=== PATIENT | male | born 1955 | race Caucasian/White ===

== ENCOUNTER → 2019-11-18 13:06 | Outpatient (BNVA) | payer MEDICARE, MEDICAID, SELFPAY | PROVIDERS: Family Provider Nurse Practitioner Family; PCP Nurse Practitioner Family; Visit Provider Internal Medicine Cardiovascular Disease | DX: R06.02 Shortness of breath (principal); R00.1 Bradycardia, unspecified | CPT/HCPCS: 80048; 83880 ==

== ENCOUNTER 2020-04-11 08:41 | Outpatient (CLI) | payer MEDICARE, MEDICAID, SELFPAY ==
--- NOTE | 2020-04-11 09:05 | NMCV_ITS ---
NM chelly perf SPECT r/s* [id number] Bryan Moncada Age: 64 Gender: M : 1955 Exam Date: 04/11/2020 09:05 Ordering Phys: Nadya Velarde MD ([email or web address]) Technologist: CLINTON Huang Exam Location: [facility] Indications: SOB STRESS TEST Please [facility] for [facility] IMAGE PROTOCOL Rest/Stress 1 Lexiscan Day Radiopharmaceutical Dose (mCi) Administration Site Administered by Rest: Tc-99m 10.8 IV CLINTON Cummings Sestamibi Stress:Tc-99m 32.6 IV CLINTON Huang Sestamipradeep Rest: 11-Apr-2020 60 Discovery 630 Stress: 11-Apr-2020 30 Discovery 630 0.4mg Lexiscan. Supine position only as patient was unable to lay prone. SPECT RESULTS Technical Quality: Good Raw Data Analysis: Normal Image Corrections: No attenuation or motion correction applied Summed Stress Score: 20 Summed Rest Score: 9 Summed Difference Score: 11 PERFUSION FINDINGS Moderate to large area of severely decreases uptake in the basal, mid and apical inferior, basal and mid inferolateral, basal and mid anterolateral, mid anteroseptal and mid inferoseptal regions. Significant reversibility was noted in the inferior, inferolateral, anterolateral and inferoseptal regions. FUNCTIONAL RESULTS (calculated via Gated SPECT) Stress Image LV EF (%): 37 Stress EDV (mL):130 TID: 0.87 Stress ESV (mL):82 FUNCTIONAL FINDINGS: Segmental wall motion analysis revealed almost akinetic septum with mild diffuse hypokinesia of the apex. IMPRESSIONS 1. Myocardial perfusion may revealing moderate to large areas of severely decreased uptake in the inferior, inferolateral and anterolateral regions with significant reversibility, suggestive of myocardial scarring with ischemia in the distribution of the right coronary artery and circumflex artery. 2. Diminished LV ejection fraction 37%. 3. The wall motion normalities as mentioned above. 4. Dilated LV cavity with an end-systolic volume of 82 mL. Compared to the study from 07/02/2018, there is significant increase in the ischemic burden Dr Nadya Velarde MD [facility] (Electronically Signed) Final Date: 11 April 2020 17:39 S
--- NOTE | 2020-04-11 09:05 | ECG_ITS ---
NAME OF STUDY: LEXISCAN SESTAMIBI STRESS TEST INDICATION: Chest Pain PROCEDURE: At the baseline, the EKG revealed atrial fibrillation with a controlled ventricular response rate of 82 bpm. Left axis deviation. Poor R wave progression. Diffuse nonspecific T wave changes. The baseline blood pressure was 180/83 mm Hg with a heart rate of 82 beats/min. Lexiscan was infused over a period of 20 seconds. A total of 0.4 milligrams of Lexiscan was infused. The stress phase was continued for a total of 5 minutes. Heart rate at the end of the stress phase was 97 with a blood pressure 137/92. The EKG at the peak infusion revealed no significant changes. Sestamibi was injected 20 seconds after the Lexiscan infusion. Blood pressure at the end of the recovery phase was 134/98 with a heart rate of 94 per minute. CONCLUSION: 1. Normal EKG response to] LexiScan infusion 2. No LexiScan induced chest pain or cardiac arrhythmia 3. Normal blood pressure and heart rate response 4. Sestamibi/sestamibi perfusion scan pending; see separate report. Electronically Signed On 04-14-2020 19:41:17 CDT by Nadya Velarde M.D. [email or web address]
[2020-04-11 09:06] VITALS: BMI 32.8
[2020-04-11] MEDS: regadenoson 0.4 Mg/5 ml Syringe IVP (11:13)
[2020-04-11 11:18] VITALS: BP 146/90; PULSE 99
== END 2020-04-11 08:42 | disposition home or self-care (01) ==
LOC: CDL 08:48
PROVIDERS: PCP Nurse Practitioner Family; Visit Provider Internal Medicine Cardiovascular Disease
DX: R06.02 Shortness of breath (principal)
CPT/HCPCS: 78452; 93017; A9500; J2785

== ENCOUNTER 2020-04-28 09:32 | Outpatient (CLI) | payer MEDICARE, MEDICAID, SELFPAY ==
[2020-04-28 10:01] LABS: Basophils % 0.4 %; Eosinophils # 0.1 10^3/uL (0.0-0.8); Eosinophils % 1.1 %; Hematocrit 49.9 % (42.0-52.0); Hemoglobin 16.9 g/dL (11.7-16.6); Lymphocytes # 1.4 10^3/uL (0.8-4.8); Lymphocytes % 26.8 %; Mean Corpuscular HGB Conc 33.9 g/dL (30.0-36.0); Mean Corpuscular Hemoglobin 31.4 pg (28.0-34.0); Mean Corpuscular Volume 92.8 fL (80-94); Mean Platelet Volume 10.9 fL (7.4-10.4); Monocytes # 0.6 10^3/uL (0.2-0.9); Monocytes % 11.9 %; Neutrophils # 3.2 10^3/uL (1.8-7.7); Neutrophils % 59.6 %; Nucleated Red Blood Cells % 0 %; Platelet Count 147 10^3/cmm (130-400); Red Blood Count 5.38 10^6/uL (4.1-5.3); Red Cell Distribution Width 12.3 % (12.1-15.1); White Blood Count 5.4 10^3/uL (4.0-10.0)
[2020-04-28 10:05] LABS: INR 0.97 (0.8-1.2)
[2020-04-28 10:10] LABS: Anion Gap 20.3 (5-19); Blood Urea Nitrogen 10 mg/dL (8-23); Calcium 9.7 mg/dL (8.5-10.5); Carbon Dioxide 22 mmol/L (22-29); Chloride 93 mmol/L (98-107); Glomerular Filtration Rate 135.6 mL/min (90-130); Glucose 491 mg/dL (65-115); Osmolality Calculated 290 mOsm/kg (285-295); Potassium 4.3 mmol/L (3.5-5.1); Sodium 131 mmol/L (136-145)
== END 2020-04-28 09:33 | disposition home or self-care (01) ==
LOC: LAB 09:38
PROVIDERS: PCP Nurse Practitioner Family; Visit Provider Internal Medicine Cardiovascular Disease
DX: I48.91 Unspecified atrial fibrillation (principal)
CPT/HCPCS: 36415; 80048; 85025; 85610

== ENCOUNTER 2020-05-01 10:04 | Observation (INO) | payer MEDICARE, MEDICAID, SELFPAY ==
[2020-04-28 09:58] VITALS: BMI 31.9
--- NOTE | 2020-04-28 10:17 | SUR.PREOP ---
Dr. Velarde was called about the patient's iodine allergy. Orders were received via telephone for pre treatment for the patient to start Wednesday April 29, 2020. 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 Pre Treatment for Iodine allergy prior to angiogram Friday May 01, 2020 Check in at 7:30 A.M. at the ED entrance Nothing to eat or drink after Midnight Thursday April 30, 2020. Except water with your pills. Hold all diabetic meds Friday, May 01, 2020. 1: Pepcid 20mg by mouth two times daily, starting Friday. April 29, 2020. 2: Benadryl 25mg by mouth two times daily, starting Friday. April 30, 2020. 3: Prednisone 40mg by mouth three times daily, starting Friday. 2019.
[2020-05-01] VITALS (29 sets, daily range): BP systolic 108–158; BP diastolic 66–101; PULSE 80–99; RESP 6–23; TEMP 36.6–36.7; O2SAT 93–100
--- NOTE | 2020-05-01 07:30 | XACV_ITS ---
Ht: 165 cm Wt: 87 kg BSA: 2.03 m2 Gender: Male : 1955 Any Known Allergies: Other Exam Priority: Routine Procedure(s): Procedure Description: Diagnostic procedure Procedure Description: Left Heart Catheterization Procedure Description: Left ventriculography Procedure Description: Venous Graft Catheterization Procedure Description: Coronary Angiography Diagnostic Cath Status: Elective Diagnostic Findings SVG to 1st OM: 100% stenosis, ADENIKE: 0 flow. Coronary angiography shows right dominance. The left main is a medium caliber vessel which was found to have mild diffuse disease. The left anterior descending artery is a medium caliber vessel which appears to taper off towards the LV apex. The proximal and the mid segment of the artery was found to be extensively stented. There is mild to moderate diffuse in-stent narrowing. The 2 diagonal branches coming out of the stented segment was found to have ostial narrowing of 60 to 70%, possibly jailed lesions . The circumflex artery is a medium caliber vessel which appears to have a tapering subtotal occlusion proximally. Right after giving off a small atrial branch, the artery appears to be totally occluded. A relatively small caliber high obtuse marginal branch was found to have around 70 to 80% ostial stenosis. There is a small caliber intermedius artery which also was found to have moderate diffuse disease proximally. The right coronary artery is a medium caliber dominant vessel which was found to be extensively stented. There was mild to moderate diffuse in-stent narrowing in the proximal segment of the right coronary artery and also the PDA and PLV branches of the artery. Right to left, grade 2 collaterals were noted filling of the obtuse marginal branches. The venous graft to the obtuse marginal artery was found to be totally occluded at the ostium. The proximal segment of the graft was found to be stented. This appears to be a chronic occlusion. PCI Status: Elective Interventional Findings SVG to 1st OM: 100% stenosis treated with Drug Eluting Stent. 0% residual stenosis, ADENIKE: 3 flow. Conclusions This is a 64-year-old white male with history of coronary disease, status post single-vessel coronary bypass surgery 1992, status post multiple PCI's in the past, presenting with a increasing episodes of chest tightness/heaviness and shortness of breath. He had a myocardial perfusion imaging which was found to be abnormal mostly showing areas of ischemia in the distribution of the right coronary artery/circumflex artery. Patient is known to have type 2 diabetes, high blood pressure, dyslipidemia and LV dysfunction. In order to further evaluate his coronary status as well as the graft status, a cardiac catheterization was recommended. He underwent left heart catheterization with a left and right coronary angiogram, graft angiogram and LV angiogram today. The findings are as follows. The left anterior descending artery was found to be extensively stented in the proximal mid segment. The stented segments were found to be patent with mild to moderate in-stent stenosis. Jailed ostial narrowing in the diagonal branches coming out of the stented areas. 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 Extensive stenting of the right coronary artery including the PDA and PLV branches with some areas of mild to moderate in-stent narrowing. LV gram showing diffuse hypokinesia of the left ventricle with ejection fraction of around 40%. LVEDP of 13mmHg. 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 Based on the above angiogram findings, it was opted to treat him medically. We will try to optimize medical treatment. Patient was transferred to the medical floor in stable condition. Recommendations Continue current medical management and risk factor modification. Diagnostic RX Recommendation: medical therapy and/or counseling LV EDP: 13 mmHg Ejection Fraction: 40.0 % Left Ventriculography Findings: The LV gram was performed in the SALEH position. The LV cavity appears to be of normal size. There is mild diffuse hypokinesia of the left ventricle. Overall ejection fraction was around 40%. No filling defects are noted. No significant mitral valve prolapse or any mitral regurgitation. Pressures Phase:Rest AO : 95 mmHg / 90 mmHg ( 91 mmHg ) @ 4:33:00 AM 97 mmHg / 85 mmHg ( 92 mmHg ) @ 4:33:00 AM 121 mmHg / 72 mmHg ( 92 mmHg ) @ 4:51:00 AM 119 mmHg / 71 mmHg ( 90 mmHg ) @ 4:51:00 AM LV : 123 mmHg / 7 mmHg / @ 4:50:00 AM 149 mmHg / 12 mmHg / @ 4:51:00 AM 133 mmHg / 11 mmHg / @ 4:51:00 AM Valves Phase:DefaultPhase AV : 11.0 mmHg @ 10:04:39 AM AV Mean Gradient: 9.0 mmHg @ 10:04:39 AM Clinical Evaluation EBL: 5mL-10mL Procedural Details Procedure Consent Obtained. Pre-Procedure Time Out. Identified patient by full name and date of as verbalized by the patient/guarantor. Does the consent match the physician's order: Yes. Accurate & Complete Informed Consent: Yes. Inpatient/Outpatient History & Physical on Chart: Yes. If H&P is completed, is and addenduem needed: Yes; If yes, is the addendum complete: N/A. Visualize and Verify Site with Patient/Guarantor: N/A. Relevant Radiology Images available: Yes. Pre-op teaching completed and patient verbalized understanding. The risks, benefits, and alternatives of sedation and/or procedure were discussed by physician. The patient agrees to continue. Procedure started. [facility] Clinical Fraility Score: 5: Mildly Frail. Shellacker Indications: Valvular Disease. Chest Pain Symptom Assessment: Non-anginal Chest Pain. Correct patient, site and procedure confirmed by cath team. Current diagnosis: Chest Pain. PERRLA. Strong, equal hand fibre optics jointer bilaterally. Lungs clear x 5 lobes. IV Site on Arrival: 18 gauge in the right anticubital. IV Fluids: 0.9% NaCl at KVO. 0 mL infused prior to laborer bituminous paving. Oxygen started at 2liters/min via nasal canula. Pre Procedural Pulses: bilateral dorsalis pedis was 3+. Pre Procedural Pulses: bilateral posterior tibial was 3+. Pre Procedural Pulses: bilateral radial was 3+. right groin was prepped with chloroprep then draped in the usual sterile fashion. right radial was prepped with chloroprep then draped in the usual sterile fashion. Physician notified. Baseline sample Acquired. HR: 88 BPM. Patient's family unavailable. Current Diagnosis : Chest Pain. Physician arrived. Physician scrubbed in. Immediate Pre-Procedure Time Out. Correct Patient: Yes; Correct Procedure: Yes; Correct Site: Yes; Correct Patient Position: Yes; Correct Supplies: Yes; Dried Flammable Prep: Yes; Blood Products Available: N/A;. Lidocaine 1% infiltrated to the right groin. Arterial access obtained with micropuncture set. A 5 [place] JL4 catheter in over wire. Multiple views taken of left coronary artery. Catheter removed over the standard wire. A 5 [place] JL4.5 catheter in over wire. Multiple views taken of left coronary artery. Catheter removed over the standard wire. A 5 [place] JR4 catheter in over wire. Multiple views taken of right coronary artery. SVG to OM occluded. A 5 [place] Angled Pig catheter in over wire. EDP Sample taken: LV 123/7,9; HR: 91 BPM; SpO2: 97%. LV gram performed in SALEH @ 10 mL/second for a total of 30 mL. EDP Sample taken: LV 149/12,14; HR: 95 BPM; SpO2: 97%. Pullback taken: LV 133/11,13; AO 121/72(92); Mean: 9mmHg, Peak to Peak: 11mmHg, SEP: 14sec/min; HR: 98 BPM; SpO2: 97%. Catheter removed over the standard wire. Physician scrubbed out. Side port of sheath attached to Normal Saline flush at KVO to maintain patency. Sheath(s) sutured into position with 2-0 silk and sterile 4x4's and Op-site applied over the site. No oozing or signs and symptoms of hematoma noted. Arterial sheath flushed and connected to tranducer and pressure bag with heparinized saline. Post Procedure: Pulses reassessed and unchanged. PERRLA. Strong, equal hand fibre optics jointer bilaterally. No VTE prophylaxis required. Medication's Wasted: Lidocaine 1% = 6 mL. Medication's Wasted: Heparin = 2500 UNITS. Medication's Wasted: Other = VERSED 3mg FENTANYL 25 mcg. Total IV fluids: 290 mL. Contrast type used: Visipaque 320 mgI/mL, 500 mL bottle. Complications: None. Estimated blood loss: 5mL-10mL. Procedure completed. A Suture was successful obtaining hemostatsis at the Right Femoral artery insertion site. Patient transferred by bed to 1st floor. Vital chart was stopped. Site: Right Femoral artery Sheath Size: 6 Fr Hemostasis Method: Suture Hemostasis Success: Successful Procedure Medications Start: 9:05 AM Stop: 9:05 AM Medication: 0.9% Saline Amount: 250 ml Route: I.V. bolus Start: 9:20 AM Stop: 9:20 AM Medication: Fentanyl Amount: 50 mcg Start: 9:22 AM Stop: 9:22 AM Medication: Versed Amount: 1 mg Route: I.V. Start: 9:31 AM Stop: 9:31 AM Medication: Versed Amount: 1 mg Route: I.V. Start: 9:33 AM Stop: 9:33 AM Medication: Heparin Amount: 1500 units Route: I.V. Start: 9:43 AM Stop: 9:43 AM Medication: Versed Amount: 1 mg Route: I.V. Start: 9:44 AM Stop: 9:44 AM Medication: Fentanyl Amount: 25 mcg I, the attending physician, have reviewed and verified all procedure medications. Yes, all medications given per verbal order History/Risk Factors Hypertension: Yes Dyslipidemia: Yes Diabetic Therapy: Insulin Peripheral Arterial Disease (PAD): No Myocardial Infarction (SD): Yes Obesity: Yes Renal Disease: No Tobacco Use: Never Prior Interventions PCI: Yes CABG: Yes Valve Surgery: No Date of PCI: 07/03/2018 Report Signatures Finalized by:Dr Nadya Velarde MD [facility] on 05/01/2020 2:02:20 PM
--- NOTE | 2020-05-01 08:03 | W.PM.OPSUD ---
Surgery/Procedure H&P Update DATE OF PROCEDURE: May 01, 2020 DATE H&P PERFORMED: 04/19/20 H&P UPDATE INFORMATION: I have reviewed H&P completed within last 30 days, I have examined patient prior to procedure and No changes to prior documentation PREOP DIAGNOSIS: ASHD PLANNED PROCEDURE: Operation Date: 05/01/20 08:30 Proposed Procedures p Cardiac Catheterization(Left) - Nadya Velarde MD PATIENT REASSESSED PRIOR TO SEDATION, WITH NO CHANGE NOTED: Yes PHYSICAL EXAM: alert, oriented x 3, clear to auscultation bilaterally and regular rate & rhythm AIRWAY EVAL/ANESTHESIA PLAN: normal airway, see other exam findings, ASA III, Monitored Anesthesia, Local Anesthesia, Risks, benefits & alternatives of sedation and/or procedure discussed and Patient agrees to continue as planned
[2020-05-01] MEDS: diphenhydrAMINE 50 mg Capsule PO (08:25)
--- NOTE | 2020-05-01 08:43 | SUR.PREOP ---
Glucose check/ Iodine allergy prep Glucose checked this morning as ordered. 255 mg/dl. Patient asymptomatic. Called to Dr. Velarde. No new orders at this point. Patient was premidicated for contrast allergy as instructed pre procedure.
[2020-05-01 08:45] LABS: Glucose Point of Care 255 mg/dL (70-110)
[2020-05-01] MEDS: fentaNYL 50 mcg/mL INJ 2mL IVP (10:30)
--- NOTE | 2020-05-01 10:35 | PC.NURSE ---
Sheath pulled on right groin Instructed pt on sheath removal. Pre-medicated pt with Fentanyl as ordered. Femoral artery palpated. 6 Fr sheath removed. Manual pressure applied for 20 mins. Hemostasis acheived. No bleeding, hematoma or swelling noted. DP and PT doppled. Skin is warm. Pt denies any pain. Activity restrictions discuss to pt post sheath removal. Instructed pt not raise his leg. Bedrest 6 hrs and to notify nurse if he started to have wetness or unusual pain, swelling on his groin area. pt verbalizes understanding.
[2020-05-01 11:35] LABS: Glucose Point of Care 191 mg/dL (70-110)
--- NOTE | 2020-05-01 14:00 | PC.NURSE ---
oozing noted 3 cm x 2 cm of blood underneath his dressing. No gross or increase bleeding noted. Dr Velarde in room and is aware. He order to let pt walk around and monitor. No Hematoma, swelling noted. Change the dressing and see if there is any new oozing. will monitor.
[2020-05-01 16:20] LABS: Glucose Point of Care 212 mg/dL (70-110)
--- NOTE | 2020-05-01 17:56 | PC.NURSE ---
Pt states he will take his evening meds when he get to go home this evening. Pt agreed for me to give his novolog sliding scale 6 units.
--- NOTE | 2020-05-01 18:33 | PC.NURSE ---
Ambulation Dressing change on right groin. No new oozing noted on the new dressing. No hematoma, swelling noted. Per pt there is mild tenderness on upon palpation. Instructed pt on applying pressure for 20 mins to right groin if it started to ooze again. Instructed pt to keep dressing clean and dry. Activity restrictions discuss to pt post angiogram such as no heavy weight lifting of more >10 lbs, no heavy stair use. Per patient he has 3 steps going to his apartment and its the only way to get in his house. Educated of no squatting, bending for the next 3 days. Pt verbalizes understanding.
--- NOTE | 2020-05-01 18:43 | PC.NURSE ---
Discharge to home Instructed pt regarding his follow-up appointment at [facility] for groin check. Discuss to pt to hold his Metformin until May 03 as ordered by the doctor. Educated pt on post angiogram home care instructions on activity restrictions and wound care. Pt verbalizes understanding. Discharge packet provided to pt. Ushered pt to ER via pt's own wheelchair.
== END 2020-05-01 18:43 | disposition home or self-care (01) ==
LOC: CSU 10:05
PROVIDERS: Admitting Provider Internal Medicine Cardiovascular Disease; PCP Nurse Practitioner Family; Visit Provider Internal Medicine Cardiovascular Disease
DX: I25.10 Atherosclerotic heart disease of native coronary artery without angina pectoris (principal); Z79.82 Long term (current) use of aspirin; I10 Essential (primary) hypertension; E78.5 Hyperlipidemia, unspecified; G47.30 Sleep apnea, unspecified; R07.89 Other chest pain; I25.5 Ischemic cardiomyopathy; R94.39 Abnormal result of other cardiovascular function study; E11.9 Type 2 diabetes mellitus without complications; Z79.4 Long term (current) use of insulin; Z95.1 Presence of aortocoronary bypass graft; I25.2 Old myocardial infarction; E66.9 Obesity, unspecified; Z68.32 Body mass index [BMI] 32.0-32.9, adult
CPT/HCPCS: 12345; 36415; 36416; 82962; 93459; 96372; 96375; C1769; C1887; C1894; G0378; J1644; J1815; J2001; J2250; J3010; J7030; Q0163; Q9967

== ENCOUNTER → 2020-05-09 11:24 | Outpatient (BNVA) | payer MEDICARE, MEDICAID, SELFPAY | PROVIDERS: PCP Nurse Practitioner Family; Visit Provider Nurse Practitioner Family | DX: R06.02 Shortness of breath (principal); R00.1 Bradycardia, unspecified; R07.9 Chest pain, unspecified; I25.10 Atherosclerotic heart disease of native coronary artery without angina pectoris | CPT/HCPCS: 80048 ==

== ENCOUNTER → 2021-04-30 09:36 | Outpatient (BNVA) | payer MEDICARE, MEDICAID, SELFPAY | PROVIDERS: PCP Nurse Practitioner Family; Visit Provider Nurse Practitioner Family | DX: E78.5 Hyperlipidemia, unspecified (principal); I10 Essential (primary) hypertension; I25.10 Atherosclerotic heart disease of native coronary artery without angina pectoris; I25.5 Ischemic cardiomyopathy; E11.65 Type 2 diabetes mellitus with hyperglycemia; Z79.4 Long term (current) use of insulin; Z68.28 Body mass index [BMI] 28.0-28.9, adult | CPT/HCPCS: 80053; 80061; 83036; 84439; 84443; 85025 ==

== ENCOUNTER 2021-06-06 12:06 | Inpatient (IN) | payer MEDICARE, MEDICAID, SELFPAY ==
[2021-06-06] VITALS (9 sets, daily range): BP systolic 120–154; BP diastolic 69–88; PULSE 83–122; RESP 20–40; TEMP 38.1; O2SAT 91–99; BMI 29.1
--- NOTE | 2021-06-06 13:22 | XR_ITS ---
WS: [id number] Pelvis, AP view, 06/06/2021 Clinical Data: pain in the hip, fall Comparison: None. Findings: No fractures or dislocations are seen. The SI joints and pubic symphysis are intact. The soft tissues are not remarkable. There is minimal spurring of both acetabular lips. XR/XR pelvis 1-2V* [id number] Impression: Negative for fracture.
--- NOTE | 2021-06-06 13:24 | CT_ITS ---
WS: [id number] CT HEAD NONCONTRAST HISTORY: fall 2 weeks ago on plavix TECHNIQUE: Contiguous axial imaging performed through the brain in 2.5 mm imaging. Bone and soft tiss ue windows. Sagittal and coronal reformats reviewed. All CT scans at [facility] use at le ast one of these dose optimization techniques: automated exposure control; mA and/or kV adjustment pe r patient size (includes targeted exams where dose is matched to clinical indication); or iterative r econstruction. DLP: 1007.93 mGy.cm COMPARISON: 02/22/2015 Mild increased density along the interhemispheric falx is similar to prior study from 2014 and likely calcification. No sulcal effacement. No evidence for resolved intracranial hemorrhage. There is mild atrophy but severe small vessel ischemic changes. Multiple lacunar infarcts in the basa l ganglia and RIGHT caudate head. Additional lacunar infarct in the LEFT chua radiata. Ventricles: Ventricles are mildly dilated. The extent of the dilatation is slightly out of proportio n to the amount of atrophy suggesting possible normal pressure hydrocephalus. Paranasal sinuses: Mild mucoperiosteal thickening in the sinuses. No air-fluid levels. Mastoid air cells: Well pneumatized. Calvarium and scalp: Skull is intact with no soft tissue edema or swelling. CT/CT head wo con* [id number] IMPRESSION: 1. No acute intracranial hemorrhage identified. 2. Ventriculomegaly out of proportion to the amount of atrophy. Consider sumaya l pressure hydrocephalus. 3. Extensive scattered chronic small vessel ischemic changes in bilateral lacu kirby infarcts.
--- NOTE | 2021-06-06 13:24 | CT_ITS ---
WS: [id number] CT ABDOMEN AND PELVIS WITH CONTRAST HISTORY: Diffuse abdominal tenderness and fall. TECHNIQUE: Imaging performed of the abdomen and pelvis with IV contrast. Single phase imaging of the abdomen. Coronal and sagittal reformats are submitted. All CT scans at [facility] use at least one of these dose optimization techniques: automated exposure control; mA and/or kV adjustment per patient size (includes targeted exams where dose is matched to clinical indication); or iterativ e reconstruction. IV CONTRAST: Visipaque 320; 95 mL IV. Oral contrast: No DLP: 1879.84 mGy.cm COMPARISON: 09/27/2019 Lower thorax: Dense pulmonary opacifications in the lower lung rock. These opacifications are most significant in the RIGHT lower lobe but also at the lingula and LEFT lower lobe and RIGHT middle lobe . Heart is slightly enlarged. Small hiatal hernia. Liver/biliary system: Normal size with no intrahepatic dilatation. Gallbladder: Normal. No gallstones or wall thickening. No pericholecystic fluid. Pancreas: Normal size pancreas and pancreatic duct. No adjacent inflammation. Focal calcification at the pancreatic head may be from prior pancreatitis. No duct dilatation. Spleen: Normal size spleen. No mass or infarct. Adrenal glands: Normal. Right kidney: Normal. Left kidney: Normal. Aorta: Moderate atherosclerosis with no aneurysm. Lymphadenopathy: None. Free fluid: None. GI tract: Normal appendix. No GI tract obstruction. No significant diverticular disease. Abdominal wall: Unremarkable abdominal wall. No hernia. Pelvis: Markedly distended urinary bladder. Bladder extends over a length of 17 cm. No intraluminal f illing defect appreciated. Inguinal canals are patent bilaterally containing fat only. No pelvic hema opathy. Bones: Mild degenerative spondylitic changes in the lower thoracic and lumbar spines. Partially heale d fracture lateral RIGHT ninth rib. CT/CT abdomen pelvis w con* [id number] IMPRESSION: 1. Dense confluent multilobar opacifications seen at the lung bases. Consider pneumonitis/Covid 19, pulmonary hemorrhage and pneumonia. Cannot completely exc lude malignancy. Anticipate follow-up imaging after treatment. 2. No abdominal pelvic hemorrhage or visceral organ injury. 3. Markedly distended urinary bladder. May consider bladder outlet obstruction . 4. Age-indeterminate but not acute RIGHT ninth rib fracture.
[2021-06-06 13:57] LABS: ABG PCO2 33.1 mmHg (35-45); Base Excess ABG 2.9 mmol/L (-2.0-2.0); Blood Gas Allen Test Pos; Blood Gas Operator Identificat glc; Blood Gas Sample Site Radial, left; Blood Gas Sample Type Arterial; HCO3 ABG 25.6 mmol/L (22-26); Oxygen Device ROOM AIR; PO2 ABG 60.8 mmHg (80.0-100.0)
--- NOTE | 2021-06-06 14:01 | W.ED.GENADLT ---
HPI - General Adult General: Chief complaint: General Medical Stated complaint: FALL, PAIN Time Seen by Provider: 06/06/21 13:07 History of Present Illness: HPI narrative: Patient is a 65-year-old male with a history of CAD status post CABG, hypertension, hyperlipidemia presenting to the emergency room with complaints of generalized weakness and pain all over progressively getting worse over the last 2 weeks. He reports 2 weeks ago, when he was walking to the bathroom he felt lightheaded and passed out. Patient denies any chest pain shortness of breath, palpitation at that point time. Patient reports that hhe is having increasingly pain all over. Decided to come to the emergency room for evaluation today. Patient denies any weakness, neck pain. Patient reports cough, subjective fever and malaise at home. Denies any diarrhea, loss of taste. No sick contacts with covid symptoms at home. Onset: 2 weeks ago Duration: 2 weeks Intensity: moderate Location: home Review of Systems Narrative: HEENT: No vision changes, no sore throat. +diffuse pain and +fatigue CV: No chest pain, no palpitations. PULM: No cough, No dyspnea. GI: No abdominal pain, no N/V/D. : No dysuria, no frequency, no hematuria. MSKEL: No arthralgias, no edema. SKIN: No new rashes, no lesions. NEURO: No headache, no focal weakness PFSH ED PFSH: Medical History Abnormal cardiovascular stress test Atherosclerotic cardiovascular disease Atypical chest pain Benign essential HTN Bradycardia Dyslipidemia Ischemic cardiomyopathy Shortness of breath Sleep apnea Surgical History Hx of CABG Hx of heart artery stent Hx of tonsillectomy Hx of vasectomy Family History Mother Diabetes CAD (coronary artery disease) Hyperlipidemia Hypertension Father CAD (coronary artery disease) Dementia Hyperlipidemia Hypertension Sister CAD (coronary artery disease) Cancer Diabetes Hyperlipidemia Hypertension Stroke Brother CAD (coronary artery disease) Cancer Dementia Diabetes Hyperlipidemia Hypertension Family/Other Suicide Denies family history of Clotting disorder Psychiatric illness Chronic kidney disease (CKD) Anesthesia complication Bleeding disorder Lung disease Social History Smoking and tobacco status: never smoked Alcohol intake: never Lives independently: Yes Marital status: Physical Exam Narrative: EXAM NARRATIVE: Head: Atraumatic, normocephalic Eyes: PERRL, EOMI, conjunctiva Locatwithout injection ENT: Throat without erythema, lesions or exudate, MMM NECK: Supple, trachea midline, no JVD LUNGS: LCTA CV: RRR, S1,S2, no murmurs, rubs, gallops. 2+ peripheral pulses in UEs ABDOMEN: Soft, nontender, nondistended, BS x4, no rigidity, no guarding, no rebound EXTREMITY: Normal ROM, no pitting edema, no calf tenderness to palpation SKIN: No rash or erythema NEURO: Awake and alert. Occasionally answering questions. Rest of exam limited by baseline dementia PSYCH: Normal mood and affect. Course Vital Signs: Vital signs: Vital Signs Temperature 100.6 F H 06/06/21 12:43 Pulse Rate 89 06/06/21 20:34 Respiratory Rate 30 H 06/06/21 20:34 Blood Pressure 128/88 06/06/21 20:34 Pulse Oximetry 93 06/06/21 20:34 MDM - General Adult MDM Narrative: Medical decision making narrative: 65-year-old male with history of CAD status post CABG, hypertension hyperlipidemia who presents to the emergency room with complaints of generalized weakness. Initially on evaluation, patient was noted to be satting 93 to 94% with occasional dips to the upper 80s. Patient was also to be noted to be mildly tachycardic to low 100s as well as febrile to 100.6 Covid incision came back positive. Patient was given 2 L of fluid instead of 30 cc/kg of IVF Given concerns for generalized malaise, history of recurrent fall, patient will be admitted to hospital for further evaluation. Patient was admitted to medicine team however shortly around 6 PM, patient suddenly developed shortness of breath. Patient was noted to be hypoxic to the 70% with rhonchorous coarse breath sounds bilaterally. Patient was also noted to tachycardic to the 130s and hypertensive to 210/120. He was immediately placed on BiPAP, received 80 mg of Lasix, a Driscoll was inserted, patient was started on nitroglycerin 200 mcg/min. Blood pressure, heart rate, and O2 sat improved after intervention. Patient voided about 2.4 L of fluids in the urine bag. She was intermittently agitated, requiring 1 mg of Ativan. Given changes in course of care, decision was made to escalate care to ICU level. Chest x-ray showed diffuse pulmonary infiltrate consistent with acute CHF exacerbation in setting of Covid. Patient was admitted to the ICU pain evaluation at this time.. Lab Data: Labs: Lab Results 06/06/21 06/06/21 06/06/21 Range/Units 12:43 13:40 13:40 WBC 3.3 L (4.0-10.0) 10^3/ uL RBC 5.28 (4.1-5.3) 10^6/u L Hgb 16.4 (11.7-16.6) g/dL Hct 46.4 (42.0-52.0) % MCV 87.9 (80-94) fL MCH 31.1 (28.0-34.0) pg MCHC 35.3 (30.0-36.0) g/dL RDW 11.8 L (12.1-15.1) % Plt Count 98 L (130-400) 10^3/c mm MPV 11.8 H (7.4-10.4) fL Total Counted 100 (0-100) Atypical Lymphs % 1.0 (0-5) % Absolute Neutrophi ls 2.6 (1.4-6.5) 10^3/c mm Segmented Neutroph ils 78 % Abs Segm Neuts (Ma n) 2.6 (1.6-7.1) 10/cmm Band Neutrophils 0.0 % Abs Band Neuts (Ma n) 0.0 (0.0-1.2) 10^3/c mm Absolute Lymphocyt es 0.6 L (1.2-3.4) 10^3/c mm Lymphocytes (Manua l) 17 % Monocytes (Manual) 4.0 % Absolute Monocytes 0.1 (0.1-0.6) 10^3/c mm Eosinophils (Manua l) 0 % Absolute Eosinophi ls 0.0 (0.0-0.7) 10^3/c mm Basophils (Manual) 0.0 % Absolute Basophils 0.0 (0.0-0.2) 10^3/c mm Platelet Estimate Normal (Normal) PT 13.10 (12.1-14.9) SECO NDS INR 0.96 (0.8-1.2) APTT 33.8 (23.9-36.7) SECO NDS Specimen Type Sample Site ABG pH (7.35-7.45) ABG pCO2 (35-45) mmHg ABG pO2 (80.0-100.0) mmH g ABG HCO3 (22-26) mmol/L ABG Base Excess (-2.0-2.0) mmol/ L Jarek Test Hematocrit (42-52) % O2 Delivery Device FiO2 % [employer] Driver ID Sodium (136-145) mmol/L Potassium (3.5-5.1) mmol/L Chloride (98-107) mmol/L Carbon Dioxide (22-29) mmol/L Anion Gap (5-19) BUN (8-23) mg/dL Creatinine (0.7-1.2) mg/dL GFR Calculation (90-130) mL/min Glucose (65-115) mg/dL POC Glucose 198 H (70-110) mg/dL Calculated Osmolal ity (285-295) mOsm/k g Lactate (0.5-2.2) mmol/L Calcium (8.5-10.5) mg/dL Total Bilirubin (0.15-1.2) mg/dL AST (0-40) U/L ALT (0-41) U/L Alkaline Phosphata se (40-130) IU/L Total Protein (6.6-8.7) g/dL Albumin (3.5-5.2) g/dL Globulin (1.3-4.6) g/dL Lipase (13-60) U/L Urine Color (Yellow) Urine Appearance (CLEAR) Urine pH (5-7) Ur Specific Gravit y (1.005-1.030) Urine Protein (Negative) Urine Glucose (UA) (Normal) Urine Ketones (Negative) Urine Blood (Negative) Urine Nitrate (Negative) Urine Bilirubin (Negative) Urine Urobilinogen (Negative) mg/dL Ur Leukocyte Brittney ase (Negative) SARS-CoV-2 Ag (Rap id) (Negative) Blood Type Rho(D) Type Antibody Screen 06/06/21 06/06/21 06/06/21 Range/Units 13:40 13:40 13:40 WBC (4.0-10.0) 10^3/ uL RBC (4.1-5.3) 10^6/u L Hgb (11.7-16.6) g/dL Hct (42.0-52.0) % MCV (80-94) fL MCH (28.0-34.0) pg MCHC (30.0-36.0) g/dL RDW (12.1-15.1) % Plt Count (130-400) 10^3/c mm MPV (7.4-10.4) fL Total Counted (0-100) Atypical Lymphs % (0-5) % Absolute Neutrophi ls (1.4-6.5) 10^3/c mm Segmented Neutroph ils % Abs Segm Neuts (Ma n) (1.6-7.1) 10/cmm Band Neutrophils % Abs Band Neuts (Ma n) (0.0-1.2) 10^3/c mm Absolute Lymphocyt es (1.2-3.4) 10^3/c mm Lymphocytes (Manua l) % Monocytes (Manual) % Absolute Monocytes (0.1-0.6) 10^3/c mm Eosinophils (Manua l) % Absolute Eosinophi ls (0.0-0.7) 10^3/c mm Basophils (Manual) % Absolute Basophils (0.0-0.2) 10^3/c mm Platelet Estimate (Normal) PT (12.1-14.9) SECO NDS INR (0.8-1.2) APTT (23.9-36.7) SECO NDS Specimen Type Sample Site ABG pH (7.35-7.45) ABG pCO2 (35-45) mmHg ABG pO2 (80.0-100.0) mmH g ABG HCO3 (22-26) mmol/L ABG Base Excess (-2.0-2.0) mmol/ L Jarek Test Hematocrit (42-52) % O2 Delivery Device FiO2 % [employer] Driver ID Sodium 131 L (136-145) mmol/L Potassium 3.6 (3.5-5.1) mmol/L Chloride 94 L (98-107) mmol/L Carbon Dioxide 26 (22-29) mmol/L Anion Gap 14.6 (5-19) BUN 9 (8-23) mg/dL Creatinine 0.6 L (0.7-1.2) mg/dL GFR Calculation 135.2 H (90-130) mL/min Glucose 185 H (65-115) mg/dL POC Glucose (70-110) mg/dL Calculated Osmolal ity 275 L (285-295) mOsm/k g Lactate 1.7 (0.5-2.2) mmol/L Calcium 8.4 L (8.5-10.5) mg/dL Total Bilirubin 0.6 (0.15-1.2) mg/dL AST 33 (0-40) U/L ALT 21 (0-41) U/L Alkaline Phosphata se 105 (40-130) IU/L Total Protein 6.0 L (6.6-8.7) g/dL Albumin 4.0 (3.5-5.2) g/dL Globulin 2.0 (1.3-4.6) g/dL Lipase 424 H (13-60) U/L Urine Color (Yellow) Urine Appearance (CLEAR) Urine pH (5-7) Ur Specific Gravit y (1.005-1.030) Urine Protein (Negative) Urine Glucose (UA) (Normal) Urine Ketones (Negative) Urine Blood (Negative) Urine Nitrate (Negative) Urine Bilirubin (Negative) Urine Urobilinogen (Negative) mg/dL Ur Leukocyte Brittney ase (Negative) SARS-CoV-2 Ag (Rap id) (Negative) Blood Type A Positive Rho(D) Type Positive / 4+ Antibody Screen Negative 06/06/21 06/06/21 06/06/21 Range/Units 13:47 14:10 17:20 WBC (4.0-10.0) 10^3/ uL RBC (4.1-5.3) 10^6/u L Hgb (11.7-16.6) g/dL Hct (42.0-52.0) % MCV (80-94) fL MCH (28.0-34.0) pg MCHC (30.0-36.0) g/dL RDW (12.1-15.1) % Plt Count (130-400) 10^3/c mm MPV (7.4-10.4) fL Total Counted (0-100) Atypical Lymphs % (0-5) % Absolute Neutrophi ls (1.4-6.5) 10^3/c mm Segmented Neutroph ils % Abs Segm Neuts (Ma n) (1.6-7.1) 10/cmm Band Neutrophils % Abs Band Neuts (Ma n) (0.0-1.2) 10^3/c mm Absolute Lymphocyt es (1.2-3.4) 10^3/c mm Lymphocytes (Manua l) % Monocytes (Manual) % Absolute Monocytes (0.1-0.6) 10^3/c mm Eosinophils (Manua l) % Absolute Eosinophi ls (0.0-0.7) 10^3/c mm Basophils (Manual) % Absolute Basophils (0.0-0.2) 10^3/c mm Platelet Estimate (Normal) PT (12.1-14.9) SECO NDS INR (0.8-1.2) APTT (23.9-36.7) SECO NDS Specimen Type Arterial Sample Site Radial, left ABG pH 7.50 H (7.35-7.45) ABG pCO2 33.1 L (35-45) mmHg ABG pO2 60.8 L (80.0-100.0) mmH g ABG HCO3 25.6 (22-26) mmol/L ABG Base Excess 2.9 H (-2.0-2.0) mmol/ L Jarek Test Pos Hematocrit 48.0 (42-52) % O2 Delivery Device Room air FiO2 21.0 % [employer] Driver ID glc Sodium (136-145) mmol/L Potassium (3.5-5.1) mmol/L Chloride (98-107) mmol/L Carbon Dioxide (22-29) mmol/L Anion Gap (5-19) BUN (8-23) mg/dL Creatinine (0.7-1.2) mg/dL GFR Calculation (90-130) mL/min Glucose (65-115) mg/dL POC Glucose (70-110) mg/dL Calculated Osmolal ity (285-295) mOsm/k g Lactate (0.5-2.2) mmol/L Calcium (8.5-10.5) mg/dL Total Bilirubin (0.15-1.2) mg/dL AST (0-40) U/L ALT (0-41) U/L Alkaline Phosphata se (40-130) IU/L Total Protein (6.6-8.7) g/dL Albumin (3.5-5.2) g/dL Globulin (1.3-4.6) g/dL Lipase (13-60) U/L Urine Color Straw (Yellow) Urine Appearance Clear (CLEAR) Urine pH 5 (5-7) Ur Specific Gravit y 1.010 (1.005-1.030) Urine Protein 1+ H (Negative) Urine Glucose (UA) 4+ H (Normal) Urine Ketones 1+ H (Negative) Urine Blood Neg (Negative) Urine Nitrate Negative (Negative) Urine Bilirubin Neg (Negative) Urine Urobilinogen 4 H (Negative) mg/dL Ur Leukocyte Brittney ase Negative (Negative) SARS-CoV-2 Ag (Rap id) Positive H (Negative) Blood Type Rho(D) Type Antibody Screen 06/06/21 Range/Units 18:37 WBC (4.0-10.0) 10^3/ uL RBC (4.1-5.3) 10^6/u L Hgb (11.7-16.6) g/dL Hct (42.0-52.0) % MCV (80-94) fL MCH (28.0-34.0) pg MCHC (30.0-36.0) g/dL RDW (12.1-15.1) % Plt Count (130-400) 10^3/c mm MPV (7.4-10.4) fL Total Counted (0-100) Atypical Lymphs % (0-5) % Absolute Neutrophi ls (1.4-6.5) 10^3/c mm Segmented Neutroph ils % Abs Segm Neuts (Ma n) (1.6-7.1) 10/cmm Band Neutrophils % Abs Band Neuts (Ma n) (0.0-1.2) 10^3/c mm Absolute Lymphocyt es (1.2-3.4) 10^3/c mm Lymphocytes (Manua l) % Monocytes (Manual) % Absolute Monocytes (0.1-0.6) 10^3/c mm Eosinophils (Manua l) % Absolute Eosinophi ls (0.0-0.7) 10^3/c mm Basophils (Manual) % Absolute Basophils (0.0-0.2) 10^3/c mm Platelet Estimate (Normal) PT (12.1-14.9) SECO NDS INR (0.8-1.2) APTT (23.9-36.7) SECO NDS Specimen Type Arterial Sample Site Radial, left ABG pH 7.30 L (7.35-7.45) ABG pCO2 42.3 (35-45) mmHg ABG pO2 67.8 L (80.0-100.0) mmH g ABG HCO3 20.6 L (22-26) mmol/L ABG Base Excess -5.8 L (-2.0-2.0) mmol/ L Jarek Test Pos Hematocrit 54.7 H (42-52) % O2 Delivery Device Bipap FiO2 100.0 % [employer] Driver ID Amh Sodium (136-145) mmol/L Potassium (3.5-5.1) mmol/L Chloride (98-107) mmol/L Carbon Dioxide (22-29) mmol/L Anion Gap (5-19) BUN (8-23) mg/dL Creatinine (0.7-1.2) mg/dL GFR Calculation (90-130) mL/min Glucose (65-115) mg/dL POC Glucose (70-110) mg/dL Calculated Osmolal ity (285-295) mOsm/k g Lactate (0.5-2.2) mmol/L Calcium (8.5-10.5) mg/dL Total Bilirubin (0.15-1.2) mg/dL AST (0-40) U/L ALT (0-41) U/L Alkaline Phosphata se (40-130) IU/L Total Protein (6.6-8.7) g/dL Albumin (3.5-5.2) g/dL Globulin (1.3-4.6) g/dL Lipase (13-60) U/L Urine Color (Yellow) Urine Appearance (CLEAR) Urine pH (5-7) Ur Specific Gravit y (1.005-1.030) Urine Protein (Negative) Urine Glucose (UA) (Normal) Urine Ketones (Negative) Urine Blood (Negative) Urine Nitrate (Negative) Urine Bilirubin (Negative) Urine Urobilinogen (Negative) mg/dL Ur Leukocyte Brittney ase (Negative) SARS-CoV-2 Ag (Rap id) (Negative) Blood Type Rho(D) Type Antibody Screen Imaging Data^: Other Imaging: Radiologist's impression: [facility] [facility] [address].[place], [place] [address]PFix ReportSigned Patient: Bryan Moncada #: [id number]: 5Acct#:[id number]/Sex: 65 / MADM Date: 06/06/21Loc: ERRoom/Bed:Attending Dr: Ordering Provider/Ordering MD: Madelyn Wang MD Date of Service: 06/06/21 Procedure(s): XR chest 1V portable [id number] Accession Number(s): [id number] Report Number: [id number] WS: [id number] Portable AP upright chest, 06/06/2021 Clinical Data: fall Comparison: Portable chest, 09/27/2019. Findings: Bilateral patchy pulmonary opacities involving the entire right lung and the left lower lobe is noted. There is cardiomegaly. The aortic arch and descending aorta show tortuosity. Midline sternotomy sutures are present. Monitor leads on the chest wall. XR/XR chest 1V portable [id number] Impression: 1. Patchy bilateral pulmonary opacities most consistent with pneumonia. 2. Atherosclerosis and cardiomegaly. Dictated By:Brenda Perrin MDSigned By:Brenda Perrin MDSigned Date/Time:06/06/21 1502DD/ [id number], [place] [address]CJrk ReportSigned Patient: Bryan Moncada #: [id number]: 5Acct#:[id number]/Sex: 65 / MADM Date: 06/06/21Loc: ERRoom/Bed:Attending Dr: Ordering Provider/Ordering MD: Madelyn Wang MD Date of Service: 06/06/21 Procedure(s): XR hand LT min 3V* [id number] Accession Number(s): [id number] Report Number: [id number] WS: [id number] Left hand, 3 views, 06/06/2021 Clinical Data: rule out fx Comparison: None. Findings: No new fractures or dislocations are seen. The soft tissues are unremarkable. The joint spaces are normal There is a old healed fracture of the left fifth metacarpal. XR/XR hand LT min 3V* [id number] Impression: Negative left hand. Dictated By:Brenda Perrin MDSigned By:Brenda Perrin MDSigned Date/Time:06/06/21 1446DD/ [address] [facility].[place], [place] [address]IUsx ReportSigned Patient: Bryan Moncada #: [id number]: 5Acct#:[id number]/Sex: 65 MADM Date: 06/06/21Loc: ERRoom/Bed:Attending Dr: Ordering Provider/Ordering MD: Madelyn Wang MD Date of Service: 06/06/21 Procedure(s): XR wrist LT 2V [id number] Accession Number(s): [id number] Report Number: [id number] WS: [id number] Left wrist, AP and lateral views, 06/06/2021 Clinical Data: rule out fx Comparison: None. Findings: No fractures or dislocations are seen. The carpal bones are intact. There is no soft tissue swelling. The distal radius and ulna are not remarkable. XR/XR wrist LT 2V 38799 Impression: Negative left wrist. Dictated By:Brenda Perrin MDSigned By:Brenda Perrin MDSigned Date/Time:06/06/21 1445DD/ [address] [facility].[place], [place] [address]ZQji ReportSigned Patient: Bryan Moncada #: [id number]: 5Acct#:[id number]/Sex: 65 / MADM Date: 06/06/21Loc: ERRoom/Bed:Attending Dr: Ordering Provider/Ordering MD: Madelyn Wang MD Date of Service: 06/06/21 Procedure(s): XR forearm LT 2V 03251 Accession Number(s): [id number] Report Number: [id number] WS: [id number] Left forearm, AP and lateral views, 06/06/2021 Clinical Data: rule out fx Comparison: None. Findings: No fracture or dislocations are seen. The soft tissues are normal. The visualized left wrist and elbow show no obvious abnormalities. XR/XR forearm LT 2V 56913 Impression: Negative for fracture. Dictated By:Brenda Perrin MDSigned By:Brenda Perrin MDSigned Date/Time:06/06/21 1444DD/ 1444 146 Madelyn Wang MD Find Patient RAD - Bryan Moncada 65 M 1955 ACTIVITY DATE EXAM STATUS AUTHOR 06/06/21 14:39 Signed Brenda Perrin 06/06/21 14:02 Signed Brenda Perrin 06/06/21 14:02 Signed Brenda Perrin 06/06/21 14:02 Signed Brenda Perrin 06/06/21 13:24 Signed Jordyn Sanders 06/06/21 13:24 Signed Jordyn Sanders 06/06/21 13:22 Signed Brenda Perrin [address] [address]HV Scan ReportSigned Patient: Bryan Moncada #: [id number]: 5Acct#:[id number]/Sex: 65 / MADM Date: 06/06/21Loc: ERRoom/Bed:Attending Dr: Ordering Provider/Ordering MD: Madelyn Wang MD Date of Service: 06/06/21 Procedure(s): CT head wo con* [id number] Accession Number(s): [id number] Report Number: [id number] WS: [id number] CT HEAD NONCONTRAST HISTORY: fall 2 weeks ago on plavix TECHNIQUE: Contiguous axial imaging performed through the brain in 2.5 mm imaging. Bone and soft tissue windows. Sagittal and coronal reformats reviewed. All CT scans at [facility] use at least one of these dose optimization techniques: automated exposure control; mA and/or kV adjustment per patient size (includes targeted exams where dose is matched to clinical indication); or iterative reconstruction. DLP: 1007.93 mGy.cm COMPARISON: 02/22/2015 Mild increased density along the interhemispheric falx is similar to prior study from 2015 and likely calcification. No sulcal effacement. No evidence for resolved intracranial hemorrhage. There is mild atrophy but severe small vessel ischemic changes. Multiple lacunar infarcts in the basal ganglia and RIGHT caudate head. Additional lacunar infarct in the LEFT chua radiata. Ventricles: Ventricles are mildly dilated. The extent of the dilatation is slightly out of proportion to the amount of atrophy suggesting possible normal pressure hydrocephalus. Paranasal sinuses: Mild mucoperiosteal thickening in the sinuses. No air-fluid levels. Mastoid air cells: Well pneumatized. Calvarium and scalp: Skull is intact with no soft tissue edema or swelling. CT/CT head wo con* [id number] IMPRESSION: 1. No acute intracranial hemorrhage identified. 2. Ventriculomegaly out of proportion to the amount of atrophy. Consider normal pressure hydrocephalus. 3. Extensive scattered chronic small vessel ischemic changes in bilateral lacunar infarcts. Dictated By:Jordyn Sanders DOSigned By:Jordyn Sanders DOSigned Date/Time:06/06/21 1523 146 Madelyn Wang MD Find Patient RAD - Bryan Moncada 65 M 1955 ACTIVITY DATE EXAM STATUS AUTHOR 06/06/21 14:39 Signed Brenda Perrin 06/06/21 14:02 Signed Brenda Perrin 06/06/21 14:02 Signed Brenda Perrin 06/06/21 14:02 Signed Brenda Perrin 06/06/21 13:24 Signed Jordyn Sanders 06/06/21 13:24 Signed Jordyn Sanders 06/06/21 13:22 Signed Brenda Perrin [address] [address]UV Scan ReportSigned Patient: Bryan Moncada #: [id number]: 5Acct#:[id number]/Sex: 65 / MADM Date: 06/06/21Loc: ERRoom/Bed:Attending Dr: Ordering Provider/Ordering MD: Madelyn Wang MD Date of Service: 06/06/21 Procedure(s): CT abdomen pelvis w con* [id number] Accession Number(s): [id number] Report Number: [id number] WS: [id number] CT ABDOMEN AND PELVIS WITH CONTRAST HISTORY: Diffuse abdominal tenderness and fall. TECHNIQUE: Imaging performed of the abdomen and pelvis with IV contrast. Single phase imaging of the abdomen. Coronal and sagittal reformats are submitted. All CT scans at [facility] use at least one of these dose optimization techniques: automated exposure control; mA and/or kV adjustment per patient size (includes targeted exams where dose is matched to clinical indication); or iterative reconstruction. IV CONTRAST: Visipaque 320; 95 mL IV. Oral contrast: No DLP: 1879.84 mGy.cm COMPARISON: 09/27/2019 Lower thorax: Dense pulmonary opacifications in the lower lung rock. These opacifications are most significant in the RIGHT lower lobe but also at the lingula and LEFT lower lobe and RIGHT middle lobe. Heart is slightly enlarged. Small hiatal hernia. Liver/biliary system: Normal size with no intrahepatic dilatation. Gallbladder: Normal. No gallstones or wall thickening. No pericholecystic fluid. Pancreas: Normal size pancreas and pancreatic duct. No adjacent inflammation. Focal calcification at the pancreatic head may be from prior pancreatitis. No duct dilatation. Spleen: Normal size spleen. No mass or infarct. Adrenal glands: Normal. Right kidney: Normal. Left kidney: Normal. Aorta: Moderate atherosclerosis with no aneurysm. Lymphadenopathy: None. Free fluid: None. GI tract: Normal appendix. No GI tract obstruction. No significant diverticular disease. Abdominal wall: Unremarkable abdominal wall. No hernia. Pelvis: Markedly distended urinary bladder. Bladder extends over a length of 17 cm. No intraluminal filling defect appreciated. Inguinal canals are patent bilaterally containing fat only. No pelvic adenopathy. Bones: Mild degenerative spondylitic changes in the lower thoracic and lumbar spines. Partially healed fracture lateral RIGHT ninth rib. CT/CT abdomen pelvis w con* [id number] IMPRESSION: 1. Dense confluent multilobar opacifications seen at the lung bases. Consider pneumonitis/Covid 19, pulmonary hemorrhage and pneumonia. Cannot completely exclude malignancy. Anticipate follow-up imaging after treatment. 2. No abdominal pelvic hemorrhage or visceral organ injury. 3. Markedly distended urinary bladder. May consider bladder outlet obstruction. 4. Age-indeterminate but not acute RIGHT ninth rib fracture. Dictated By:Jordyn Sanders DOSigned By:Jordyn Sanders DOSigned Date/Time:06/06/21 1532DD/ [address] [address]QMas ReportSigned Patient: Bryan Moncada #: [id number]: 5Acct#:[id number]/Sex: 65 / MADM Date: 06/06/21Loc: ERRoom/Bed:Attending Dr: Ordering Provider/Ordering MD: Madelyn Wang MD Date of Service: 06/06/21 Procedure(s): XR pelvis 1-2V* [id number] Accession Number(s): [id number] Report Number: [id number] WS: [id number] Pelvis, AP view, 06/06/2021 Clinical Data: pain in the hip, fall Comparison: None. Findings: No fractures or dislocations are seen. The SI joints and pubic symphysis are intact. The soft tissues are not remarkable. There is minimal spurring of both acetabular lips. XR/XR pelvis 1-2V* [id number] Impression: Negative for fracture. Dictated By:Brenda Perrin MDSigned By:Brenda Perrin MDSigned Date/Time:06/06/21 1343DD/ 1342 Critical Care Time Critical Care Time: Total Critical Care Time: 43 Attestation: Given the high probability of imminent or life threatening deterioration of the patient?s condition without intervention, the patient was immediately assessed by myself and the nurse, and cardiac monitoring initiated. The patient was also placed on oxygen and continuous pulse oximetry initiated. During the course of the patient?s stay, I spent a considerable amount of time at the bedside performing serial re-evaluations of the patient?s hemodynamic and clinical status because of the recognized potential threat to life or limb in this condition. Clinical management of this patient involved high complexity decision making to assess, manipulate, and support vital organ system failure. I then had a chance to review all of the available laboratory and radiographic studies obtained today, and I also reviewed old records available to me at the time. Sequential vital signs were obtained. Critical care time noted below was time spent engaged in work directly related to the individual patient?s care, not including time performing procedures; however it does include time spent at the immediate bedside or elsewhere on the floor or unit. TOTAL CRITICAL CARE TIME ELAPSED: 43 minutes. BODY SYSTEM AT HIGHEST RISK: Cardiac. Discharge Plan Discharge Patient Disposition: Admitted As Inpatient Clinical Impression: Acute exacerbation of CHF (congestive heart failure), COVID-19 Condition: Stable Coding Level of Care Code ED Product Design Manager for Rebekah Tavares
--- NOTE | 2021-06-06 14:02 | XR_ITS ---
WS: [id number] Left forearm, AP and lateral views, 06/06/2021 Clinical Data: rule out fx Comparison: None. Findings: No fracture or dislocations are seen. The soft tissues are normal. The visualized left wrist and elbo w show no obvious abnormalities. XR/XR forearm LT 2V [id number] Impression: Negative for fracture.
--- NOTE | 2021-06-06 14:02 | XR_ITS ---
WS: [id number] Left hand, 3 views, 06/06/2021 Clinical Data: rule out fx Comparison: None. Findings: No new fractures or dislocations are seen. The soft tissues are unremarkable. The joint spaces are no rmal There is a old healed fracture of the left fifth metacarpal. XR/XR hand LT min 3V* [id number] Impression: Negative left hand.
--- NOTE | 2021-06-06 14:02 | XR_ITS ---
WS: [id number] Left wrist, AP and lateral views, 06/06/2021 Clinical Data: rule out fx Comparison: None. Findings: No fractures or dislocations are seen. The carpal bones are intact. There is no soft tissue swelling. The distal radius and ulna are not remarkable. XR/XR wrist LT 2V [id number] Impression: Negative left wrist.
[2021-06-06 14:04] LABS: Hematocrit 46.4 % (42.0-52.0); Hemoglobin 16.4 g/dL (11.7-16.6); Mean Corpuscular HGB Conc 35.3 g/dL (30.0-36.0); Mean Corpuscular Hemoglobin 31.1 pg (28.0-34.0); Mean Corpuscular Volume 87.9 fL (80-94); Mean Platelet Volume 11.8 fL (7.4-10.4); Platelet Count 98 10^3/cmm (130-400); Red Blood Count 5.28 10^6/uL (4.1-5.3); Red Cell Distribution Width 11.8 % (12.1-15.1); White Blood Count 3.3 10^3/uL (4.0-10.0)
[2021-06-06 14:17] LABS: INR 0.96 (0.8-1.2); Partial Thromboplastin Time 33.8 SECONDS (23.9-36.7)
[2021-06-06 14:20] LABS: Lactate (Lactic Acid level) 1.7 mmol/L (0.5-2.2)
[2021-06-06] MEDS: acetaminophen 500 mg Tablet 1000 MG PO (14:20)
[2021-06-06] MEDS: sodium chloride 0.9% 1,000 ML 999 ML IV ×2 (14:20→15:49)
[2021-06-06 14:22] LABS: Alanine Aminotransferase 21 U/L (0-41); Alkaline Phosphatase 105 IU/L (40-130); Anion Gap 14.6 (5-19); Aspartate Amino Transferase 33 U/L (0-40); Blood Urea Nitrogen 9 mg/dL (8-23); Calcium 8.4 mg/dL (8.5-10.5); Carbon Dioxide 26 mmol/L (22-29); Chloride 94 mmol/L (98-107); Glomerular Filtration Rate 135.2 mL/min (90-130); Glucose 185 mg/dL (65-115); Osmolality Calculated 275 mOsm/kg (285-295); Potassium 3.6 mmol/L (3.5-5.1); Sodium 131 mmol/L (136-145); Total Bilirubin 0.6 mg/dL (0.15-1.2)
[2021-06-06 14:30] LABS: Lipase 424 U/L (13-60)
[2021-06-06 14:39] LABS: SARS Covid-2 Antigen Positive (Negative)
--- NOTE | 2021-06-06 14:39 | XR_ITS ---
WS: [id number] Portable AP upright chest, 06/06/2021 Clinical Data: fall Comparison: Portable chest, 09/27/2019. Findings: Bilateral patchy pulmonary opacities involving the entire right lung and the left lower lob e is noted. There is cardiomegaly. The aortic arch and descending aorta show tortuosity. Midline ster notomy sutures are present. Monitor leads on the chest wall. XR/XR chest 1V portable [id number] Impression: 1. Patchy bilateral pulmonary opacities most consistent with pneumonia. 2. Atherosclerosis and cardiomegaly.
[2021-06-06 14:42] LABS: Total Cells Counted 100 (0-100)
[2021-06-06 14:46] LABS: Absolute Neutrophil 2.6 10^3/cmm (1.4-6.5); Absolute Segmented Neutrophil 2.6 10/cmm (1.6-7.1); Eosinophils 0 %; Lymphocytes 17 %; Lymphocytes Absolute 0.6 10^3/cmm (1.2-3.4); Monocytes Absolute 0.1 10^3/cmm (0.1-0.6); Platelet Estimate Normal (Normal); Segmented Neutrophils 78 %
[2021-06-06] MEDS: diphenhydrAMINE 50 mg/mL SDV 1mL IVP (14:53)
[2021-06-06] MEDS: hydrocortisone 100 mg/2 mL SDV IVP (14:53)
--- NOTE | 2021-06-06 15:02 | PC.NURSE ---
patient in CT
[2021-06-06] MEDS: iodixanol 320 mg/mL 100mL Btl IV (15:14)
[2021-06-06] MEDS: cefepime 1,000 MG in sodium chloride 0.9% (plus) 50 ML 100 MG IV (15:48)
[2021-06-06 15:58] LABS: Glucose Point of Care 198 mg/dL (70-110)
[2021-06-06] MEDS: vancomycin 1,000 MG in sodium chloride 0.9% 250 ML 250 MG IV (16:24)
[2021-06-06 17:44] LABS: Add Urine Microscopic? NO; Charge for UA Resulting for Rev
[2021-06-06] MEDS: lidocaine 2% Urojet 20 mL TOPICAL (17:45)
[2021-06-06 17:53] LABS: Bilirubin Urine Neg (Negative); Blood Urine Neg (Negative); Glucose Urine UA 4+ (Normal); Ketones Urine 1+ (Negative); Leukocyte Esterase Urine Negative (Negative); Nitrate Urine Negative (Negative); Protein Urine 1+ (Negative); Urine Appearance Clear (CLEAR); Urine Color Straw (Yellow); Urobilinogen Urine 4 mg/dL (Negative); pH Urine 5 (5-7)
--- NOTE | 2021-06-06 17:56 | XRR_ITS ---
PROCEDURE INFORMATION: Exam: XR Chest Exam date and time: 06/06/2021 5:56 PM Age: 65 years old Clinical indication: Shortness of breath TECHNIQUE: Imaging protocol: XR of the chest. Views: 1 view. COMPARISON: CR XR chest 1V portable [id number] 06/06/2021 2:44 PM FINDINGS: Lungs: Patulous bilateral consolidations most consistent with multifocal pneumonia and not significantly changed from most recent comparison. Pleural spaces: Unremarkable. No pleural effusion. No pneumothorax. Heart/Mediastinum: Unremarkable. No cardiomegaly. Bones/joints: Visualized osseous structures are intact. Sternotomy wires noted. XR/XR chest 1V portable [id number] IMPRESSION: Patulous bilateral consolidations most consistent with multifocal pneumonia and not significantly changed from most recent comparison.
--- NOTE | 2021-06-06 18:00 | PC.NURSE ---
from [id number] was in room with patient for direct care of critical patient
--- NOTE | 2021-06-06 18:00 | PC.NURSE ---
[address] Wang to patient room. the patient is tachypnic at 42 and BP is 212/122 I placed him on a NRB at 15L and asked a endless steamer tender to have Dr Wang come to patient room as he had a sudden change in condition. Dr Wang and I discussed the patient changes and current status since arrival and medications/fluids patient is experiencing flash pulmonary edema. Dr Wang orders Bipap and I had a endless steamer tender notify Respiratory to come to room 2 with bipap. He ordered Lasix 80mg and a Nitro drip. Lasix 80mg is administered and then I placed a newby catheter. The Nitro drip is initiated and Dr Wang orders verbally for rate to be at 200mcg/min. Read back and verification of dosing is adhered to and Nitro drip is initiated at 200mcg/min at 1810. at 15 min increments the Nitro is titrated verbally orders per Dr Wang in room. 1825 increased to 300mcg/min. at 1840 decreased back to 200mcg/min. at 1855 decreased to 100mcg/min. at 1920 patient bp dropped below the parameter Dr Wang gave me of 80-90 systolic. I discontinued the Nitro drip at 1920 Dr Wang comes to room and this is reviewed with him. the patient has had 2300ml urine output since 1800. prior to that he had 100ml voided.
[2021-06-06] MEDS: FUROsemide 10 mg/mL SDV 10mL 80 MG IVP (18:06)
[2021-06-06] MEDS: nitroglycerin drip 50 MG/250 ML PREMIX (18:10)
[2021-06-06] MEDS: LORazepam 2 mg/mL INJ 1 mL 1 MG IVP (18:30)
[2021-06-06] MEDS: remdesivir 200 MG in sodium chloride 0.9% (100 ml) 100 ML 100 MG IV (18:45)
[2021-06-06 18:48] LABS: ABG PCO2 42.3 mmHg (35-45); Arterial Blood Gas Hematocrit 54.7 % (42-52); Base Excess ABG -5.8 mmol/L (-2.0-2.0); Blood Gas Allen Test Pos; Blood Gas Operator Identificat AMH; Blood Gas Sample Site Radial, left; Blood Gas Sample Type Arterial; HCO3 ABG 20.6 mmol/L (22-26); Oxygen Device BIPAP; PO2 ABG 67.8 mmHg (80.0-100.0)
--- NOTE | 2021-06-06 19:25 | PM.HP ---
Providers/Chief Complaint Primary Care Provider: Tonia Snell NP Chief Complaint: FALL, PAIN History of Present Illness 65-year-old gentleman with history of CAD, CABG, ischemic cardiomyopathy, DM 2, HTN, ROSALIO came into ER for ablation due to 2 weeks of malaise, 2 weeks ago also with lightheadedness and syncopal episode. In ER noted with sepsis, fever 100.6, leukopenia, WBC 3.3. Incidentally also thrombocytopenia 98,000. Initially lactic acid was reported as 4, he initially empirically was started on antibiotics and due to concern for septic shock received fluid resuscitation. Initially noted hypoxemic on room air, 60.8, but maintaining saturation without supplemental oxygen. On exertion saturations decreasing to 80s. On chest x-ray noted bilateral patchy pulmonary opacities consistent with pneumonia. Due to fall at home underwent additional assessment with CT of the head with finding of ventriculomegaly out of proportion to the amount of atrophy, NPH could be additionally considered. Extensive scattered chronic small vessel ischemic changes and bilateral lacunar infarcts. Pelvis, left forearm, hand, wrist x-rays negative for fractures. Lipase noted elevated at 424. CT abdomen pelvis showed dense confluent multilobar opacifications at lung bases. Concerning for COVID-19 pneumonia. Markedly distended urinary bladder. Age-indeterminate, not acute right ninth rib fracture. Rapid COVID-19 antigen sent out, found to be positive. In ER his condition was noted deteriorating with worsening oxygenation, tachycardia, hypertension, worsening work of breathing. He was started on BiPAP support, received a dose of 80 mg of Lasix, started on nitroglycerin drip. Received a dose of Ativan which helped with anxiety. Currently cooperating with BiPAP. About 2100 mL urine noted on urinary bladder catheterization. Review of Systems Narrative: Limited ROS obtained from patient's family, ER staff. Const: Reports: fever(s), body aches and malaise Eyes: Denies: change in vision or eye redness ENMT: Denies: throat pain, oral sores or ear or mastoid pain Card: Reports: syncope; Denies: chest pain, edema or dyspnea on exertion Resp: Reports: dyspnea GI: Denies: abdominal pain, nausea, vomiting, diarrhea or hematochezia Musc: Denies: back pain or joint swelling Skin/Breast: Denies: rash Neuro: Reports: confusion; Denies: headache(s) Medications/Allergies Home Medications Medication Instructions Recorded Confirmed Last Taken Type ipratropium 0.5 mg-albuterol 3 mg 3 ml INHALATION QID PRN 11/18/19 06/06/21 05/01/20 06:30 History (2.5 mg base)/3 mL nebulization soln nitroglycerin 0.4 mg sublingual 0.4 mg SUBLINGUAL Q5M PRN 30 Days 04/19/20 06/06/21 Unknown Rx tablet #30 tab aspirin 81 mg tablet,delayed 81 mg PO QDAY #90 tab 04/30/21 06/06/21 Unknown Rx release atorvastatin 40 mg tablet 40 mg PO DAILY #90 tab 04/30/21 06/06/21 Unknown Rx blood-glucose meter #1 ea 04/30/21 06/06/21 Unknown Rx budesonide-formoterol HFA 160 2 puff INHALATION BID #10.2 g 04/30/21 06/06/21 Unknown Rx mcg-4.5 mcg/actuation aerosol inhaler clopidogrel 75 mg tablet 75 mg PO QDAY #90 tab 04/30/21 06/06/21 Unknown Rx insulin detemir U-100 100 unit/mL 20 unit SUBCUT BID #12 ea 04/30/21 06/06/21 Unknown Rx (3 mL) subcutaneous pen metformin 500 mg tablet 500 mg PO BID #180 tab 04/30/21 06/06/21 Unknown Rx metoprolol tartrate 25 mg tablet 12.5 mg PO BID #180 tab 04/30/21 06/06/21 Unknown Rx Allergies Allergy/AdvReac Type Severity Reaction Status Date / Time [facility] Allergy Severe ALGY-Hives Verified 06/06/21 12:43 iodine Allergy Intermediate ALGY-Rash Verified 06/06/21 12:43 PFSH Acute PFSH: Medical History Abnormal cardiovascular stress test Atherosclerotic cardiovascular disease Atypical chest pain Benign essential HTN Bradycardia Dyslipidemia Ischemic cardiomyopathy Shortness of breath Sleep apnea Surgical History Hx of CABG Hx of heart artery stent Hx of tonsillectomy Hx of vasectomy Family History Mother Diabetes CAD (coronary artery disease) Hyperlipidemia Hypertension Father CAD (coronary artery disease) Dementia Hyperlipidemia Hypertension Sister CAD (coronary artery disease) Cancer Diabetes Hyperlipidemia Hypertension Stroke Brother CAD (coronary artery disease) Cancer Dementia Diabetes Hyperlipidemia Hypertension Family/Other Suicide Denies family history of Clotting disorder Psychiatric illness Chronic kidney disease (CKD) Anesthesia complication Bleeding disorder Lung disease Social History Smoking and tobacco status: never smoked Alcohol intake: never Lives independently: Yes Marital status: Vitals/I&O/Wt Last Vital Signs Temp 100.6 F H 06/06/21 12:43 Pulse 122 H 06/06/21 18:10 Resp 20 H 06/06/21 17:27 BP 154/81 06/06/21 17:27 Pulse Ox 93 06/06/21 18:10 06/06/21 06/06/21 06/06/21 06:59 14:59 22:59 Intake Total 1050 / 1050 Balance 1050 / 1050 Weight last 48 hrs Weight 79.379 kg Physical Exam Const: COMMON NORMALS: no acute distress ORIENTATION/CONSCIOUSNESS: Yes lethargic (after ativan. Wakes up to loud voice. ) OTHER: Cooperating well with BiPAP. HENMT: COMMON NORMALS: oropharynx normal Neck/C-Spine: COMMON NORMALS: no JVD Resp: COMMON NORMALS: normal respiratory effort AUSCULTATION: crackles Cardio: COMMON NORMALS: regular rhythm, S1 normal heart sound present, S2 normal heart sound present and No murmurs present (Cardio) RHYTHM: regular rhythm HEART SOUNDS: S1 normal heart sound present and S2 normal heart sound present GI: COMMON NORMALS: Normal to inspection, nondistended, normoactive bowel sounds present, Soft to palpation and non-tender PALPATION: Yes Soft to palpation Extremity: COMMON NORMALS: no joint enlargement and no pedal edema Neuro: COMMON NORMALS: patient oriented x3 and moves all extremities Skin: COMMON NORMALS: no rashes or lesions noted GENERAL SKIN EXAM: no rashes or lesions noted Data : 06/06/21 13:40 06/06/21 13:40 Micro: Microbiology 06/06/21 17:01 Blood Culture - Preliminary Blood SPECIMEN COLLECTED 06/06/21 13:40 Blood Culture - Preliminary Blood SPECIMEN COLLECTED A&P Assessment and plan (1) Acute respiratory failure with hypoxia: Secondary to severe COVID-19. Continue BiPAP support. Started on remdesivir, Decadron. Received hydrocortisone earlier for medication for CT study. Component of CHF, fluid overload for which he received Lasix, started on nitro drip. Continue to monitor I&O. Keep on drier tender side. Initially requiring oxygen with exertion. Currently unless show significant improvement requires admission to intensive care unit. Discussed with his daughter, consideration of intubation in case his condition was not improving, they stated he would consider intubation on temporary basis. Would not want CPR in case of cardiac arrest. Remdesivir, Decadron started for severe COVID-19. Received empiric dose of cefepime, vancomycin. Cont empiric Levaquin. Check CRP, D-dimer. Prophylactic dose of Lovenox. Advair. Albuterol as needed. Status: Acute (2) COVID-19: As above. Status: Acute (3) Urinary retention: Driscoll placed. Appears urinary outflow tract obstruction on CT. Status: Acute (4) Thrombocytopenia: Incidentally noted, platelets 98,000. Suspect secondary to severe COVID-19. Monitor blood counts. Status: Acute (5) Leukopenia: Secondary to severe COVID-19, sepsis. Status: Acute (6) Sepsis: With COVID-19 Status: Acute (7) Elevated lipase: Unclear etiology. Not sure whether he had vomiting prior to admission. Daughter and do not recall having vomiting. CT abdomen pelvis without suggestion of pancreatitis. Reassess level. Status: Acute (8) Ischemic cardiomyopathy: History of ischemic cardiomyopathy on review of prior TTE from 2019 EF 40%. Continue diuresis with Lasix 40 mg twice daily. Continue BiPAP support currently. Nitro drip. Status: Acute (9) Atherosclerotic cardiovascular disease: Status: Acute (10) Sleep apnea: Status: Acute Qualifiers: Sleep apnea type: obstructive Qualified Code(s): G47.33 - Obstructive sleep apnea (adult) (pediatric) Attestations Medical Necessity Statement*: Admission of over 2 midnights ago admitted for assessment and management of acute hypoxic respiratory failure secondary to severe COVID-19 with underlying history of ischemic cardiomyopathy, EF 40% Coding Level of Care Code Acute Production Gear Cutter for melinda Tavares Diagnoses Acute respiratory failure with hypoxia J96.01 COVID-19 U07.1 Urinary retention R33.9 Thrombocytopenia D69.6 Leukopenia D72.819 Sepsis A41.9 Elevated lipase R74.8 Ischemic cardiomyopathy I25.5 Atherosclerotic cardiovascular disease I25.10 Sleep apnea G47.33 Sleep apnea type: obstructive
--- NOTE | 2021-06-06 20:30 | PC.NURSE ---
during the time of 1800 to present patient GCS has been 11-13
--- NOTE | 2021-06-06 20:33 | PC.NURSE ---
patient is alert and oriented at this time. Gcs 15
[2021-06-06] MEDS: clopidogrel 75 mg Tablet PO (22:00)
[2021-06-06] MEDS: enoxaparin 40 mg/0.4 mL Syringe SUBCUT (22:00)
[2021-06-06] MEDS: aspirin 81 mg EC Tablet PO (22:00)
[2021-06-06] MEDS: famotidine 20 mg/2 mL INJ IVP (22:00)
--- NOTE | 2021-06-06 23:01 | PC.NURSE ---
[id number] patient has removed bipap x 3. discussed with Dr Wang to trial using 02 instead of mask. with trial of 02 @6L patient decreased to 84% and i placed bipap back on and notified Dr Wang of such. I discussed with patient importance of leaving the bipap in place and to use call if he needs me. call light is placed in his left hand
[2021-06-06 23:17] LABS: Glucose Point of Care 315 mg/dL (70-110)
--- NOTE | 2021-06-06 23:32 | PC.NURSE ---
vitals printed from 1800 to present and given to Heavy Equipment Supervisor to scan into chart
--- NOTE | 2021-06-06 23:58 | PC.NURSE ---
report to Bibiana PITT
[2021-06-07] VITALS (13 sets, daily range): BP systolic 104–148; BP diastolic 65–83; PULSE 72–117; RESP 14–38; TEMP 36.7–37.3; O2SAT 88–99
[2021-06-07] MEDS: levofloxacin-dextrose 5 % 750 MG/150 ML PREMIX 100 MG IV (02:28)
--- NOTE | 2021-06-07 03:20 | PC.NURSE ---
PT WAS PLACED ON NC O2 AND GIVEN A DRINK OF WATER AT THIS TIME.
--- NOTE | 2021-06-07 04:00 | PC.NURSE ---
PT WAS PLACED BACK ON HIS BIPAP. PT WAS OFF THE BIPAP FOR ABOUT 40 MINS ON 4L NC. HIS O2 REMAINED AT 91% UNTIL ABOUT 5 MINS AGO AND HE DROPPED TO 87%.
--- NOTE | 2021-06-07 07:30 | PC.NURSE ---
Received report assumed care. NO changes noted from report. Labs drawn and med given. Alert and oriented Waiting for room
[2021-06-07] MEDS: FUROsemide 10 mg/mL SDV 4mL 40 MG IVP ×2 (07:31→18:12)
[2021-06-07 07:32] LABS: Basophils % 0.1 %; Hematocrit 44.6 % (42.0-52.0); Hemoglobin 15.7 g/dL (11.7-16.6); Lymphocytes # 0.7 10^3/uL (0.8-4.8); Lymphocytes % 9.6 %; Mean Corpuscular HGB Conc 35.2 g/dL (30.0-36.0); Mean Corpuscular Volume 88.1 fL (80-94); Mean Platelet Volume 11.5 fL (7.4-10.4); Monocytes # 0.4 10^3/uL (0.2-0.9); Neutrophils # 6.29 10^3/uL (1.8-7.7); Nucleated Red Blood Cells % 0 %; Platelet Count 104 10^3/cmm (130-400); Red Blood Count 5.06 10^6/uL (4.1-5.3); White Blood Count 7.4 10^3/uL (4.0-10.0)
[2021-06-07] MEDS: famotidine 20 mg/2 mL INJ IVP ×2 (07:45→18:12)
[2021-06-07 07:48] LABS: D Dimer 1.12 ug/mIFEU (0-0.59)
[2021-06-07 07:59] LABS: Alanine Aminotransferase 18 U/L (0-41); Albumin Level 3.2 g/dL (3.5-5.2); Alkaline Phosphatase 90 IU/L (40-130); Anion Gap 17.4 (5-19); Aspartate Amino Transferase 34 U/L (0-40); Blood Urea Nitrogen 13 mg/dL (8-23); C Reactive Protein 116.9 mg/L (0.0-4.9); Calcium 7.5 mg/dL (8.5-10.5); Carbon Dioxide 25 mmol/L (22-29); Chloride 97 mmol/L (98-107); Globulin 1.7 g/dL (1.3-4.6); Glomerular Filtration Rate 135.2 mL/min (90-130); Glucose 111 mg/dL (65-115); Lipase 162 U/L (13-60); Osmolality Calculated 283 mOsm/kg (285-295); Potassium 3.4 mmol/L (3.5-5.1); Sodium 136 mmol/L (136-145); Total Bilirubin 0.5 mg/dL (0.15-1.2); Total Protein 4.9 g/dL (6.6-8.7)
[2021-06-07] MEDS: bumetanide 1 mg Tablet PO (08:58)
[2021-06-07] MEDS: dexamethasone 10 mg/mL INJ 6 MG IVP (08:58)
[2021-06-07] MEDS: atorvastatin 40 mg Tablet PO (08:58)
[2021-06-07] MEDS: aspirin 81 mg EC Tablet PO (08:58)
[2021-06-07] MEDS: clopidogrel 75 mg Tablet PO (08:58)
--- NOTE | 2021-06-07 09:52 | PC.CHAP ---
Pastoral Care Encounter/Spiritual Assessment Type of Contact [] Declined plating equipment tender visit [] Patient/Family/Request visit [] Outpatient visit [] Follow-up visit [] Physician referral [] Code/Alert [x] Routine visit [] Staff referral [] Actively dying [] Patient sleeping [] Family support [] [] Out of room [] Palliative care [] [] Receiving care in room [] Pre-surgical visit [] Trauma [] Long length of stay [] ICU visit [x] Other: covid Relational/Emotional Strength [] Patient feels connected with others/family/visitors/staff [] Distress [] Loneliness/isolation [] Abandonment Spirituality of Patient [] Person of [place] [] Attends Yazidi of their [place] [] Believes in Prayer [] Reads Bible or Adventism materials [] There are Spiritual issues to be addressed Conduit Bender Interventions [x] Prayer [] Active listening [] Non-anxious presence [] Spiritual/emotional support [] Crisis/trauma care [] Spiritual counseling [] Bereavement support [] Provided bereavement packet [] Provided Bible/devotional materials [] Provided toy/stuffed animal, coloring book to patient or family member [] Provided Communion [] Anointing/[place] [] Salvation [x] Completed spiritual assessment [] Other: Impact on Illness or Injury [] Angry [] Fearful [] Anxious [] Often cries [] Exhaustion [] Unable to work [] Unable to attend spiritism [] Unable to walk/stand [] Unable to read [] Unable to drive [] Unable to eat/drink [] Unable to sleep [] Unable to be with family [] Patient intubated [] Other: Summary Time spent with patient
[2021-06-07] MEDS: metoprolol tartrate 25 mg Tablet 12.5 MG PO ×2 (11:00→18:12)
--- NOTE | 2021-06-07 13:18 | P.PN_ITS ---
Subjective Subjective: Interval history: He overall is feeling quite better in terms of breathing, but otherwise is feeling malaised with diffuse body aches. He is weaned off BiPAP support. On 5 L nasal cannula. Vitals/I&O/Wt Last Vital Signs Temp 98.1 F 06/07/21 12:00 Pulse 87 06/07/21 12:00 Resp 24 H 06/07/21 12:00 BP 111/65 06/07/21 12:00 Pulse Ox 92 06/07/21 12:00 06/06/21 06/07/21 06/07/21 22:59 06:59 14:59 Intake Total 1050 / 1050 400 / 400 Output Total 900 / 900 1300 / 1300 Balance 1050 / 1050 -900 / 150 -900 / -900 Weight last 48 hrs Weight 79.379 kg Physical Exam Const: COMMON NORMALS: no acute distress and patient oriented x3 GENERAL APPEARANCE: lethargic (after ativan. Wakes up to loud voice. ) ORIEN TATION/CONSCIOUSNESS: Yes lethargic (after ativan. Wakes up to loud voice. ) OTHER: Cooperating well with BiPAP. HENMT: COMMON NORMALS: oropharynx normal Resp: COMMON NORMALS: normal respiratory effort AUSCULTATION: crackles Cardio: COMMON NORMALS: regular rhythm, S1 normal heart sound present, S2 normal heart sound present and No murmurs present (Cardio) RHYTHM: regular rhythm HEART SOUNDS: S1 normal heart sound present and S2 normal heart sound present GI: COMMON NORMALS: Normal to inspection, nondistended, normoactive bowel sounds present, Soft to palpation and non-tender PALPATION: Yes Soft to palpation Extremity: COMMON NORMALS: no joint enlargement and no pedal edema Neuro: COMMON NORMALS: patient oriented x3 and moves all extremities SENSORIUM/ORIENTATION: Yes lethargic (after ativan. Wakes up to loud voice. ) Skin: COMMON NORMALS: no rashes or lesions noted GENERAL SKIN EXAM: no rashes or lesions noted Urinary Catheter Management^: Driscoll: Cath Placed During This Visit: yes Reason for Continuing Indwelling Catheter: Accurate Measurement of Urinary Output in Critically Ill Patients Urinary Catheter Date of Insertion: 06/06/21 Urinary Catheter Time of Insertion: 18:15 Data : 06/07/21 07:25 06/07/21 07:25 Micro: Microbiology 06/06/21 13:40 Blood Culture - Preliminary Blood Gram positive cocci 06/06/21 17:20 Legionella Urinary Antigen - Final Urine Catheterized 06/06/21 17:20 Bacterial Antigens - Final Urine,Clean Catch 06/06/21 17:01 Blood Culture - Preliminary Blood SPECIMEN COLLECTED A&P Assessment and plan (1) Acute respiratory failure with hypoxia: Improving hypoxic respiratory failure. Weaned off BiPAP. Currently down to 5 L nasal cannula. Having body aches, malaise. CRP elevated at 117. D- dimer 1.12. Discussed findings with him and his daughter. Continue remdesivir, Decadron. BiPAP support as needed. Continue Lasix at this time given underlying cardiomyopathy with acute systolic congestive heart failure which appears to have responded well to diuresis as we ll. Discussed w him worsening condition yesterday after resuscitaition for initially suspected septic shock. Continue empiric Levaquin. Continue prophylactic Lovenox. CRP, D-dimer. Advair. Albuterol as needed. Discussing with him CODE STATUS in presence of the nurse, he does state that he would want CPR attempted. Discussed also with his daughter. Status: Acute (2) COVID-19: As above. Status: Acute (3) Urinary retention: Driscoll placed. Appears urinary outflow tract obstruction on CT. Status: Acute (4) Thrombocytopenia: Appears to be showing improvement. Suspect secondary to severe COVID-19. Monitor blood counts. Status: Acute (5) Leukopenia: Secondary to severe COVID-19, sepsis. Status: Acute (6) Sepsis: With COVID-19 Status: Acute (7) Elevated lipase: Unclear etiology. Not sure whether he had vomiting prior to admission. Daughter and do not recall having vomiting. CT abdomen pelvis without suggestion of pancreatitis. Reassess level. Status: Acute (8) Ischemic cardiomyopathy: History of ischemic cardiomyopathy on review of prior TTE from 2019 EF 40%. Continue diuresis with Lasix 40 mg twice daily. BiPAP support as needed. Off nitro drip. Status: Acute (9) Atherosclerotic cardiovascular disease: Status: Acute (10) Sleep apnea: Denies using CPAP at home. Status: Acute Qualifiers: Sleep apnea type: obstructive Qualified Code(s): G47.33 - Obstructive sleep apnea (adult) (pediatric) Additional A&P Information Cataract/corneal sclerosis left eye. Attestations Medical Necessity Statement*: Continue admission for assessment and management of hypoxic respiratory failure with severe COVID-19 with underlying ischemic cardiomyopathy. Coding Level of Care Code Acute Document Management Analyst for Chg Fwd Exam Comprehensive Diagnoses Acute respiratory failure with hypoxia J96.01 COVID-19 U07.1 Urinary retention R33.9 Thrombocytopenia D69.6 Leukopenia D72.819 Sepsis A41.9 Elevated lipase R74.8 Ischemic cardiomyopathy I25.5 Atherosclerotic cardiovascular disease I25.10 Sleep apnea G47.33 Sleep apnea type: obstructive
[2021-06-07 15:37] LABS: Coronavirus Test Green County Detected
[2021-06-07] MEDS: remdesivir 100 MG in sodium chloride 0.9% (100 ml) 100 ML IV (18:11)
[2021-06-07] MEDS: enoxaparin 40 mg/0.4 mL Syringe SUBCUT (18:12)
[2021-06-08] VITALS (9 sets, daily range): BP systolic 103–122; BP diastolic 58–74; PULSE 70–95; RESP 12–29; TEMP 36.7–37.3; O2SAT 90–95
[2021-06-08] MEDS: FUROsemide 10 mg/mL SDV 4mL 40 MG IVP ×2 (05:29→18:11)
[2021-06-08 06:32] LABS: Basophils % 0.2 %; Hematocrit 43.6 % (42.0-52.0); Lymphocytes # 0.9 10^3/uL (0.8-4.8); Mean Corpuscular HGB Conc 34.4 g/dL (30.0-36.0); Mean Corpuscular Hemoglobin 30.2 pg (28.0-34.0); Mean Corpuscular Volume 87.9 fL (80-94); Mean Platelet Volume 12.1 fL (7.4-10.4); Monocytes # 0.5 10^3/uL (0.2-0.9); Monocytes % 9.1 %; Neutrophils # 4.03 10^3/uL (1.8-7.7); Neutrophils % 73.5 %; Nucleated Red Blood Cells % 0 %; Platelet Count 116 10^3/cmm (130-400); Red Blood Count 4.96 10^6/uL (4.1-5.3); Red Cell Distribution Width 11.9 % (12.1-15.1); White Blood Count 5.5 10^3/uL (4.0-10.0)
[2021-06-08 06:52] LABS: Glucose Point of Care 101 mg/dL (70-110)
[2021-06-08 06:55] LABS: Alanine Aminotransferase 16 U/L (0-41); Albumin Level 2.6 g/dL (3.5-5.2); Alkaline Phosphatase 82 IU/L (40-130); Anion Gap 13.8 (5-19); Aspartate Amino Transferase 38 U/L (0-40); Blood Urea Nitrogen 17 mg/dL (8-23); C Reactive Protein 100.6 mg/L (0.0-4.9); Carbon Dioxide 26 mmol/L (22-29); Chloride 96 mmol/L (98-107); D Dimer 0.68 ug/mIFEU (0-0.59); Globulin 2.6 g/dL (1.3-4.6); Glomerular Filtration Rate 135.2 mL/min (90-130); Glucose 62 mg/dL (65-115); Osmolality Calculated 276 mOsm/kg (285-295); Sodium 133 mmol/L (136-145); Total Bilirubin 0.5 mg/dL (0.15-1.2); Total Protein 5.2 g/dL (6.6-8.7)
--- NOTE | 2021-06-08 07:09 | PC.NURSE ---
Shift Summary Patient has rested well throughout the shift with no complaints of pain. Pt. A&O at start of shift. Patient did have some confusion during the night, attempted to get out of bed without assistance x2, did attempt to pull newby catheter out once. Patient easily redirected. Pt. refused bipap at start of shift but did wear it for approx. half the night. Adequate urine output.
[2021-06-08 07:39] LABS: Potassium 2.8 mmol/L (3.5-5.1)
[2021-06-08] MEDS: famotidine 20 mg/2 mL INJ IVP ×2 (09:43→18:10)
[2021-06-08] MEDS: aspirin 81 mg EC Tablet PO (09:43)
[2021-06-08] MEDS: dexamethasone 10 mg/mL INJ 6 MG IVP (09:43)
[2021-06-08] MEDS: bumetanide 1 mg Tablet PO (09:43)
[2021-06-08] MEDS: atorvastatin 40 mg Tablet PO (09:44)
[2021-06-08] MEDS: clopidogrel 75 mg Tablet PO (09:44)
[2021-06-08] MEDS: metoprolol tartrate 25 mg Tablet 12.5 MG PO ×2 (09:44→18:12)
--- NOTE | 2021-06-08 13:48 | ECG_ITS ---
[facility] Test Date: 2021-06-08 Pat Name: Bryan Moncada Department: Room: 204 Gender: Male Hedis Specialist: : [id number] Requested By: Harry Negrete Order Number: [id number] Roberto MD: Margoth Olivera M.D. Measurements Intervals [place] Rate: 86 P: 36 PA: 163 QRS: -29 QRSD: 133 T: -5 QT: 437 QTc: 526 Interpretive Statements SINUS RHYTHM WITH OCCASIONAL SUPRAVENTRICULAR PREMATURE COMPLEXES POSSIBLE LEFT ATRIAL ENLARGEMENT [-0.1mV P WAVE IN V1/V2] INTRAVENTRICULAR CONDUCTION DELAY [130+ ms QRS DURATION] INFERIOR MYOCARDIAL INFARCTION , PROBABLY OLD [40+ ms Q WAVE AND/OR ST/T ABNORMALITY IN II/aVF] Compared to ECG 09/27/2019 16:31:42 Intraventricular conduction delay now present Left anterior fascicular block no longer present Left ventricular hypertrophy no longer present ST (T wave) deviation no longer present Myocardial infarct finding still present Electronically Signed On 06-08-2021 16:30:17 CDT by Margoth Olivera M.D. [id number]
--- NOTE | 2021-06-08 13:55 | P.PN_ITS ---
Subjective Subjective: Interval history: Feels he is not doing the best. He reports having some chest congestion, pain on inspiration. Lower chest discomfort. Cough, but difficulty with getting phlegm up. Denies nausea vomiting or diarrhea. Vitals/I&O/Wt Last Vital Signs Temp 98.1 F 06/08/21 04:00 Pulse 81 06/08/21 10:53 Resp 20 H 06/08/21 10:53 BP 108/58 06/08/21 08:00 Pulse Ox 95 06/08/21 10:53 06/07/21 06/08/21 06/08/21 22:59 06:59 14:59 Intake Total 400 / 800 360 / 1160 Output Total 900 / 2200 250 / 2450 800 / 800 Balance -500 / -1400 110 / -1290 -800 / -800 Weight last 48 hrs Weight 85.82 kg Physical Exam Const: COMMON NORMALS: no acute distress, patient oriented x3 and alert ORIENTATION/CONSCIOUSNESS: Yes awake OTHER: NC on HENMT: COMMON NORMALS: oropharynx normal Resp: COMMON NORMALS: normal respiratory effort and clear to auscultation bilaterally AUSCULTATION: clear to auscultation bilaterally Cardio: COMMON NORMALS: regular rhythm, S1 normal heart sound present, S2 normal heart sound present and No murmurs present (Cardio) RHYTHM: regular rhythm HEART SOUNDS: S1 normal heart sound present and S2 normal heart sound present GI: COMMON NORMALS: Normal to inspection, nondistended, normoactive bowel sounds present, Soft to palpation and non-tender PALPATION: Yes Soft to palpation Extremity: COMMON NORMALS: no joint enlargement and no pedal edema Neuro: COMMON NORMALS: patient oriented x3 and moves all extremities SENSORIUM/ORIENTATION: Yes alert Skin: COMMON NORMALS: no rashes or lesions noted GENERAL SKIN EXAM: no rashes or lesions noted Urinary Catheter Management^: Driscoll: Cath Placed During This Visit: yes Reason for Continuing Indwelling Catheter: Acute Urinary Retention or Obstruction Urinary Catheter Date of Insertion: 06/06/21 Urinary Catheter Time of Insertion: 18:15 Data : 06/08/21 04:46 06/08/21 04:46 Micro: Microbiology 06/06/21 13:40 Blood Culture - Preliminary Blood Coagulase negativ staphylococc 06/07/21 06:46 MRSA Culture - Final Nose 06/06/21 17:01 Blood Culture - Preliminary Blood NEGATIVE TO DATE 06/07/21 14:00 Blood Culture - Preliminary Blood SPECIMEN COLLECTED 06/07/21 13:50 Blood Culture - Preliminary Blood SPECIMEN COLLECTED 06/06/21 17:20 Legionella Urinary Antigen - Final Urine Catheterized A&P Assessment and plan (1) Acute respiratory failure with hypoxia: Oxygenation appears to show gradual improvement with treatment. Continue Decadron, remdesivir. He is having pleuritic chest discomfort, although cannot definitively say is not having pain without inspiration as well. Will check troponin and EKG series. Otherwise continue Decadron, remdesivir. Add Mucinex, flutter valve to help with expectoration. Fluid overload appears to be improving, doing well with diuresis. Improving hypoxic respiratory failure. Weaned off BiPAP. Currently down to 5 L nasal cannula. Having body aches, malaise. CRP elevated at 117. D-dimer 1.12. Discussed findings with him and his daughter. Continue remdesivir, Decadron. BiPAP support as needed. Continue Lasix at this time given underlying cardiomyopathy with acute systolic congestive heart failure which appears to have responded well to diuresis as well. Discussed w him worsening condition yesterday after resuscitaition for initially suspected septic shock. Continue empiric Levaquin. Continue prophylactic Lovenox. CRP, D-dimer. Advair. Albuterol as needed. Status: Acute (2) COVID-19: As above. Status: Acute (3) Urinary retention: Driscoll placed. Appears urinary outflow tract obstruction on CT. Status: Acute (4) Thrombocytopenia: Appears to be showing improvement. Suspect secondary to severe COVID-19. Monitor blood counts. Status: Acute (5) Leukopenia: Secondary to severe COVID-19, sepsis. Status: Acute (6) Sepsis: With COVID-19 Status: Acute (7) Elevated lipase: Unclear etiology. Not sure whether he had vomiting prior to admission. Daughter and do not recall having vomiting. CT abdomen pelvis without suggestion of pancreatitis. Reassess level. Status: Acute (8) Ischemic cardiomyopathy: Acute systolic CHF exacerbation. In negative balance. Continue diuresis. Appears he weight 79 kg on 06/06. Currently 85. History of ischemic cardiomyopathy on review of prior TTE from 2019 EF 40%. BiPAP support as needed. Off nitro drip. Status: Acute (9) Atherosclerotic cardiovascular disease: Status: Acute (10) Sleep apnea: Denies using CPAP at home. Status: Acute Qualifiers: Sleep apnea type: obstructive Qualified Code(s): G47.33 - Obstructive sleep apnea (adult) (pediatric) (11) Cerebral ventriculomegaly: Possibly out of proportion ventriculomegaly to brain atrophy. Discussed with him and his daughter. He has been having some issues with memory recently, he reports difficulties with balance. His daughter also reports he has been having some difficulties with urinary continence. Discussed in case normal pressure hydrocephalus, could be reversible changes, or at least arrest progression. Recommended follow-up with neurology for closer assessment, possibly LP trial, consideration for referral for treatment depending on response. They verbalized understanding agreement, will be seeking additional evaluation. Status: Acute Additional A&P Information Cataract/corneal sclerosis left eye. Prior lacunar infarcts, discussed with daughter, she is aware. Attestations Medical Necessity Statement*: Continue admission for treatment of hypoxic respiratory failure with severe COVID-19, acute systolic CHF exacerbation. Coding Level of Care Code Acute Batter Scaler for [facility] Fwd Exam Comprehensive Diagnoses Acute respiratory failure with hypoxia J96.01 COVID-19 U07.1 Urinary retention R33.9 Thrombocytopenia D69.6 Leukopenia D72.819 Sepsis A41.9 Elevated lipase R74.8 Ischemic cardiomyopathy I25.5 Atherosclerotic cardiovascular disease I25.10 Sleep apnea G47.33 Sleep apnea type: obstructive Cerebral ventriculomegaly G93.89
[2021-06-08 15:04] LABS: Troponin(5th) Baseline 20 ng/L (0-15)
--- NOTE | 2021-06-08 15:48 | ECG_ITS ---
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 Measurements Intervals [place] Rate: 82 P: 37 SD: 169 QRS: -30 QRSD: 133 T: -10 QT: 437 QTc: 512 Interpretive Statements SINUS RHYTHM POSSIBLE LEFT ATRIAL ENLARGEMENT [-0.1mV P WAVE IN V1/V2] INTRAVENTRICULAR CONDUCTION DELAY [130+ ms QRS DURATION] INFERIOR MYOCARDIAL INFARCTION , PROBABLY OLD [40+ ms Q WAVE AND/OR ST/T ABNORMALITY IN II/aVF] Compared to ECG 06/08/2021 15:10:55 No significant changes Electronically Signed On 06-10-2021 12:26:44 CDT by Jd Javier M.D. [id number]
[2021-06-08 18:00] LABS: Troponin 5 2HR 17.07 ng/L (0-15)
[2021-06-08] MEDS: potassium chloride ER 20 mEq Tablet 40 MEQ PO (18:10)
[2021-06-08] MEDS: guaiFENesin 600 mg Tablet 1200 MG PO (18:12)
[2021-06-08] MEDS: remdesivir 100 MG in sodium chloride 0.9% (100 ml) 100 ML IV (18:13)
[2021-06-08] MEDS: enoxaparin 40 mg/0.4 mL Syringe SUBCUT (18:13)
[2021-06-08 18:19] LABS: Troponin 5 2HR Delta -2.93 ABS# (0-10)
[2021-06-08 21:01] LABS: Troponin 5 6HR 16.64 ng/L (0-15)
[2021-06-08 21:03] LABS: Troponin 5 6HR Delta -3.36 ng/L (0-12)
[2021-06-08 21:17] LABS: Glucose Point of Care 157 mg/dL (70-110)
[2021-06-08 21:17] LABS: Glucose Point of Care 165 mg/dL (70-110)
[2021-06-08 21:17] LABS: Glucose Point of Care 239 mg/dL (70-110)
[2021-06-08 21:17] LABS: Glucose Point of Care 122 mg/dL (70-110)
[2021-06-08 22:02] LABS: Glucose Point of Care 184 mg/dL (70-110)
[2021-06-09] VITALS (14 sets, daily range): BP systolic 106–129; BP diastolic 60–75; PULSE 74–89; RESP 18–28; TEMP 36.1–36.7; O2SAT 88–97
[2021-06-09] MEDS: FUROsemide 10 mg/mL SDV 4mL 40 MG IVP (05:42)
--- NOTE | 2021-06-09 06:40 | PC.NURSE ---
Shift Summary Patient has rested well this shift, no complaints of pain. Patient oxygen increased to 15L high flow for sats 85-88% on 8L high flow. Patient sats 88-92% on 15L high flow. Patient did wear bipap for part of the night. Patient is experiencing some slight confusion this AM to location, though was completely oriented at start of shift. Adequate urine output.
[2021-06-09 06:54] LABS: Glucose Point of Care 83 mg/dL (70-110)
--- NOTE | 2021-06-09 07:15 | PC.NURSE ---
Late Entry Report received from Latoya PITT. Patient is resting in bed. No C/O of pain or other needs at this time.
[2021-06-09] MEDS: atorvastatin 40 mg Tablet PO (08:52)
[2021-06-09] MEDS: clopidogrel 75 mg Tablet PO (08:52)
[2021-06-09] MEDS: guaiFENesin 600 mg Tablet 1200 MG PO ×2 (08:52→18:01)
[2021-06-09] MEDS: aspirin 81 mg EC Tablet PO (08:52)
[2021-06-09] MEDS: metoprolol tartrate 25 mg Tablet 12.5 MG PO ×2 (08:52→18:01)
[2021-06-09] MEDS: dexamethasone 10 mg/mL INJ 6 MG IVP (08:53)
[2021-06-09] MEDS: famotidine 20 mg/2 mL INJ IVP ×2 (08:53→20:10)
[2021-06-09 09:15] LABS: Basophils % 0.2 %; Hematocrit 47.5 % (42.0-52.0); Hemoglobin 16.1 g/dL (11.7-16.6); Lymphocytes # 0.6 10^3/uL (0.8-4.8); Lymphocytes % 11.2 %; Mean Corpuscular HGB Conc 33.9 g/dL (30.0-36.0); Mean Corpuscular Hemoglobin 30.7 pg (28.0-34.0); Mean Corpuscular Volume 90.5 fL (80-94); Monocytes # 0.7 10^3/uL (0.2-0.9); Monocytes % 12.1 %; Neutrophils # 4.16 10^3/uL (1.8-7.7); Nucleated Red Blood Cells % 0 %; Platelet Count 154 10^3/cmm (130-400); Red Blood Count 5.25 10^6/uL (4.1-5.3); Red Cell Distribution Width 12.1 % (12.1-15.1); White Blood Count 5.5 10^3/uL (4.0-10.0)
[2021-06-09 09:36] LABS: D Dimer 6.92 ug/mIFEU (0-0.59)
[2021-06-09 09:38] LABS: Alanine Aminotransferase 19 U/L (0-41); Albumin Level 2.8 g/dL (3.5-5.2); Alkaline Phosphatase 87 IU/L (40-130); Blood Urea Nitrogen 21 mg/dL (8-23); C Reactive Protein 60.4 mg/L (0.0-4.9); Calcium 8.2 mg/dL (8.5-10.5); Carbon Dioxide 24 mmol/L (22-29); Chloride 96 mmol/L (98-107); Globulin 2.9 g/dL (1.3-4.6); Glomerular Filtration Rate 135.2 mL/min (90-130); Glucose 51 mg/dL (65-115); Magnesium 1.8 mg/dL (1.7-2.3); Osmolality Calculated 284 mOsm/kg (285-295); Sodium 137 mmol/L (136-145); Total Bilirubin 0.6 mg/dL (0.15-1.2); Total Protein 5.7 g/dL (6.6-8.7)
[2021-06-09 09:46] LABS: Anion Gap 20.8 (5-19); Aspartate Amino Transferase 45 U/L (0-40); Potassium 3.8 mmol/L (3.5-5.1)
--- NOTE | 2021-06-09 11:00 | PC.NURSE ---
Late Entry Got patient up to bedside commode.
[2021-06-09 11:30] LABS: Glucose Point of Care 223 mg/dL (70-110)
--- NOTE | 2021-06-09 12:34 | PM.PN ---
Subjective Subjective: Interval history: Subjectively he feels he is doing all right. May be a little bit better, also discussed with him increased need for oxygen, currently up to 15 L high flow cannula as of this afternoon. He is disappointed as today is his anniversary, and he would have liked to return home. Vitals/I&O/Wt Last Vital Signs Temp 98.0 F 06/09/21 08:00 Pulse 79 06/09/21 11:44 Resp 20 H 06/09/21 11:44 BP 106/74 06/09/21 08:00 Pulse Ox 92 06/09/21 11:44 06/08/21 06/09/21 06/09/21 22:59 06:59 14:59 Intake Total 100 / 100 120 / 220 360 / 360 Output Total 1600 / 2400 600 / 3000 Balance -1500 / -2300 -480 / -2780 360 / 360 Weight last 48 hrs Weight 84.187 kg Weight 85.82 kg Physical Exam Const: COMMON NORMALS: no acute distress, patient oriented x3 and alert GENERAL APPEARANCE: cooperative and comfortable ORIENTATION/CONSCIOUSNESS: Yes awake OTHER: HFC on HENMT: COMMON NORMALS: oropharynx normal Neck/C-Spine: COMMON NORMALS: no JVD Resp: COMMON NORMALS: normal respiratory effort and clear to auscultation bilaterally AUSCULTATION: clear to auscultation bilaterally Cardio: COMMON NORMALS: no JVD, regular rhythm, S1 normal heart sound present, S2 normal heart sound present and No murmurs present (Cardio) RHYTHM: regular rhythm HEART SOUNDS: S1 normal heart sound present and S2 normal heart sound present GI: COMMON NORMALS: Normal to inspection, nondistended, normoactive bowel sounds present, Soft to palpation and non-tender PALPATION: Yes Soft to palpation Extremity: COMMON NORMALS: no joint enlargement and no pedal edema Neuro: COMMON NORMALS: patient oriented x3 and moves all extremities SENSORIUM/ORIENTATION: Yes alert Skin: COMMON NORMALS: no rashes or lesions noted GENERAL SKIN EXAM: no rashes or lesions noted Urinary Catheter Management^: Driscoll: Cath Placed During This Visit: yes Reason for Continuing Indwelling Catheter: Acute Urinary Retention or Obstruction Urinary Catheter Date of Insertion: 06/06/21 Urinary Catheter Time of Insertion: 18:15 Data : 06/09/21 06:06 06/09/21 06:06 Micro: Microbiology 06/07/21 14:00 Blood Culture - Preliminary Blood NEGATIVE TO DATE 06/07/21 13:50 Blood Culture - Preliminary Blood NEGATIVE TO DATE 06/06/21 13:40 Blood Culture - Preliminary Blood Coagulase negativ staphylococc 06/07/21 06:46 MRSA Culture - Final Nose A&P Assessment and plan (1) Acute respiratory failure with hypoxia: Was doing well on 4 L, however, this morning and afternoon appears to be getting worse hypoxia, had to go up on oxygen support to high flow cannula, currently 15 L. Discussed with him. Subjectively he is doing well. Denies chest pain or pressure. CRP has decreased to 6.4. D-dimer with mild increased to 6.92. Discussed with him regarding continuation of further therapy with remdesivir, Decadron. Continuation of prophylactic Lovenox dose. Does not appear to be in fluid overload further. Will de-escalate diuretics to 20 mg p.o. daily Lasix for now. Monitor volume status. Add Mucinex, flutter valve to help with expectoration. Continue empiric Levaquin. Recheck CRP, D-dimer. Advair. Albuterol as needed. Status: Acute (2) COVID-19: As above. Status: Acute (3) Urinary retention: Driscoll placed. Appears urinary outflow tract obstruction on CT. Status: Acute (4) Thrombocytopenia: Resolved. Suspect secondary to severe COVID-19. Monitor blood counts. Status: Acute (5) Leukopenia: Secondary to severe COVID-19, sepsis. Status: Acute (6) Sepsis: With COVID-19 Status: Acute (7) Elevated lipase: Unclear etiology. He reported he had an episode of vomiting on the day of the admission. Daughter and do not recall having vomiting. CT abdomen pelvis without suggestion of pancreatitis. Reassessed level decreasing to 162. Status: Acute (8) Ischemic cardiomyopathy: Acute systolic CHF exacerbation. Resolving. Change to PO 20mg Lasix. Monitor volume status. History of ischemic cardiomyopathy on review of prior TTE from 2019 EF 40%. BiPAP support as needed. Off nitro drip. Status: Acute (9) Atherosclerotic cardiovascular disease: Status: Acute (10) Sleep apnea: Denies using CPAP at home. Status: Acute Qualifiers: Sleep apnea type: obstructive Qualified Code(s): G47.33 - Obstructive sleep apnea (adult) (pediatric) (11) Cerebral ventriculomegaly: Possibly out of proportion ventriculomegaly to brain atrophy. Discussed with him and his daughter. He has been having some issues with memory recently, he reports difficulties with balance. His daughter also reports he has been having some difficulties with urinary continence. Discussed in case normal pressure hydrocephalus, could be reversible changes, or at least arrest progression. Recommended follow-up with neurology for closer assessment, possibly LP trial, consideration for referral for treatment depending on response. They verbalized understanding agreement, will be seeking additional evaluation. Status: Acute Additional A&P Information Cataract/corneal sclerosis left eye. Prior lacunar infarcts, discussed with daughter, she is aware. Attestations Medical Necessity Statement*: Continue admission for assessment of management of hypoxic respiratory failure with severe COVID-19. 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
[2021-06-09 17:22] LABS: Glucose Point of Care 286 mg/dL (70-110)
[2021-06-09] MEDS: remdesivir 100 MG in sodium chloride 0.9% (100 ml) 100 ML IV (18:02)
[2021-06-09] MEDS: ipratropium-albuterol 3 mL Neb INHALATION (19:43)
[2021-06-09] MEDS: enoxaparin 40 mg/0.4 mL Syringe SUBCUT (20:09)
[2021-06-09 22:51] LABS: Glucose Point of Care 247 mg/dL (70-110)
[2021-06-10] VITALS (11 sets, daily range): BP systolic 117–158; BP diastolic 58–81; PULSE 65–92; RESP 17–24; TEMP 36.7–36.8; O2SAT 86–95
[2021-06-10 06:52] LABS: Glucose Point of Care 80 mg/dL (70-110)
[2021-06-10 08:07] LABS: Basophils % 0.1 %; Hematocrit 44.4 % (42.0-52.0); Hemoglobin 15.4 g/dL (11.7-16.6); Lymphocytes # 0.9 10^3/uL (0.8-4.8); Lymphocytes % 10.4 %; Mean Corpuscular HGB Conc 34.7 g/dL (30.0-36.0); Mean Corpuscular Hemoglobin 30.6 pg (28.0-34.0); Mean Corpuscular Volume 88.1 fL (80-94); Mean Platelet Volume 11.8 fL (7.4-10.4); Monocytes % 12.6 %; Neutrophils # 6.23 10^3/uL (1.8-7.7); Neutrophils % 76.4 %; Nucleated Red Blood Cells % 0 %; Platelet Count 183 10^3/cmm (130-400); Red Blood Count 5.04 10^6/uL (4.1-5.3); Red Cell Distribution Width 11.9 % (12.1-15.1); White Blood Count 8.2 10^3/uL (4.0-10.0)
[2021-06-10 08:19] LABS: D Dimer 0.82 ug/mIFEU (0-0.59)
[2021-06-10 08:43] LABS: Alanine Aminotransferase 18 U/L (0-41); Albumin Level 3.1 g/dL (3.5-5.2); Alkaline Phosphatase 92 IU/L (40-130); Anion Gap 15.7 (5-19); Aspartate Amino Transferase 34 U/L (0-40); Blood Urea Nitrogen 22 mg/dL (8-23); C Reactive Protein 28.4 mg/L (0.0-4.9); Calcium 8.3 mg/dL (8.5-10.5); Carbon Dioxide 28 mmol/L (22-29); Chloride 98 mmol/L (98-107); Globulin 2.4 g/dL (1.3-4.6); Glomerular Filtration Rate 166.9 mL/min (90-130); Glucose 75 mg/dL (65-115); Magnesium 2.1 mg/dL (1.7-2.3); Osmolality Calculated 290 mOsm/kg (285-295); Sodium 139 mmol/L (136-145); Total Bilirubin 0.6 mg/dL (0.15-1.2); Total Protein 5.5 g/dL (6.6-8.7)
[2021-06-10 08:59] LABS: Potassium 2.7 mmol/L (3.5-5.1)
--- NOTE | 2021-06-10 10:22 | PC.SOCIAL ---
IMM Update Pg. 2 of IMM updated and reviewed with patient over the phone. Initialed, dated, and timed, placed in chart.
[2021-06-10] MEDS: aspirin 81 mg EC Tablet PO (10:47)
[2021-06-10] MEDS: metoprolol tartrate 25 mg Tablet 12.5 MG PO ×2 (10:47→18:36)
[2021-06-10] MEDS: guaiFENesin 600 mg Tablet 1200 MG PO ×2 (10:47→18:36)
[2021-06-10] MEDS: clopidogrel 75 mg Tablet PO (10:48)
[2021-06-10] MEDS: atorvastatin 40 mg Tablet PO (10:48)
--- NOTE | 2021-06-10 10:54 | PM.PN ---
Subjective Subjective: Interval history: Feels very weak. Bothered by cough. No chest pain. Denies diarrhea. Vitals/I&O/Wt Last Vital Signs Temp 98.0 F 06/10/21 07:39 Pulse 88 06/10/21 09:11 Resp 20 H 06/10/21 09:11 BP 126/64 06/10/21 07:39 Pulse Ox 90 06/10/21 09:11 06/09/21 06/10/21 06/10/21 22:59 06:59 14:59 Intake Total 460 / 1232 240 / 1472 240 / 240 Output Total 900 / 1950 600 / 2550 Balance -440 / -718 -360 / -1078 240 / 240 Weight last 48 hrs Weight 83.28 kg Weight 84.187 kg Physical Exam Const: COMMON NORMALS: no acute distress, patient oriented x3 and alert GENERAL APPEARANCE: cooperative and comfortable ORIENTATION/CONSCIOUSNESS: Yes awake OTHER: HFC on HENMT: COMMON NORMALS: oropharynx normal Neck/C-Spine: COMMON NORMALS: no JVD Resp: COMMON NORMALS: normal respiratory effort and clear to auscultation bilaterally AUSCULTATION: clear to auscultation bilaterally Cardio: COMMON NORMALS: no JVD, regular rhythm, S1 normal heart sound present, S2 normal heart sound present and No murmurs present (Cardio) RHYTHM: regular rhythm HEART SOUNDS: S1 normal heart sound present and S2 normal heart sound present GI: COMMON NORMALS: Normal to inspection, nondistended, normoactive bowel sounds present, Soft to palpation and non-tender PALPATION: Yes Soft to palpation Extremity: COMMON NORMALS: no joint enlargement and no pedal edema Neuro: COMMON NORMALS: patient oriented x3 and moves all extremities SENSORIUM/ORIENTATION: Yes alert Skin: COMMON NORMALS: no rashes or lesions noted GENERAL SKIN EXAM: no rashes or lesions noted Urinary Catheter Management^: Driscoll: Cath Placed During This Visit: yes Reason for Continuing Indwelling Catheter: Acute Urinary Retention or Obstruction Urinary Catheter Date of Insertion: 06/06/21 Urinary Catheter Time of Insertion: 18:15 Data : 06/10/21 05:31 06/10/21 05:31 Micro: Microbiology 06/06/21 13:40 Blood Culture - Preliminary Blood Coagulase negativ staphylococc A&P Assessment and plan (1) Acute respiratory failure with hypoxia: Continues to require 15 L. Today feels weaker. CRP continues to decrease. Continue remdesivir, Decadron. Prophylactic Lovenox. No further sign of fluid overload. Will DC diuretics entirely for now. Continue to monitor volume status. Add Tessalon Perles. Mucinex, flutter valve to help with expectoration. Held further antibiotic for now as he does not appear to show signs of superimposed bacterial infection currently. Monitor for any changes. Recheck CRP, D-dimer. Advair. Albuterol as needed. Status: Acute (2) COVID-19: As above. Status: Acute (3) Urinary retention: Driscoll placed. Appears urinary outflow tract obstruction on CT. Status: Acute (4) Thrombocytopenia: Resolved. Suspect secondary to severe COVID-19. Monitor blood counts. Status: Acute (5) Leukopenia: Resolved. Secondary to severe COVID-19, sepsis. Status: Acute (6) Sepsis: Initially with sepsis but suspected secondary to COVID-19. Antibiotic discontinued. Status: Acute (7) Elevated lipase: Unclear etiology. He reported he had an episode of vomiting on the day of the admission. Daughter and do not recall having vomiting. CT abdomen pelvis without suggestion of pancreatitis. Reassessed level decreasing to 162. Status: Acute (8) Ischemic cardiomyopathy: Acute systolic CHF exacerbation resolved. Discontinued Lasix. Monitor volume status. History of ischemic cardiomyopathy on review of prior TTE from 2019 EF 40%. BiPAP support as needed. Off nitro drip. Status: Acute (9) Atherosclerotic cardiovascular disease: Status: Acute (10) Sleep apnea: Denies using CPAP at home. Status: Acute Qualifiers: Sleep apnea type: obstructive Qualified Code(s): G47.33 - Obstructive sleep apnea (adult) (pediatric) (11) Cerebral ventriculomegaly: Possibly out of proportion ventriculomegaly to brain atrophy. Discussed with him and his daughter. He has been having some issues with memory recently, he reports difficulties with balance. His daughter also reports he has been having some difficulties with urinary continence. Discussed in case normal pressure hydrocephalus, could be reversible changes, or at least arrest progression. Recommended follow-up with neurology for closer assessment, possibly LP trial, consideration for referral for treatment depending on response. They verbalized understanding agreement, will be seeking additional evaluation. Status: Acute Additional A&P Information Blood culture 06/06 with coagulase-negative staph in 2/4 bottles, repeat cultures negative. Suspect contamination. Cataract/corneal sclerosis left eye. Prior lacunar infarcts, discussed with daughter, she is aware. Attestations Medical Necessity Statement*: Continue admission for treatment of hypoxic respiratory failure with severe COVID-19. 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
[2021-06-10] MEDS: dexamethasone 10 mg/mL INJ 6 MG IVP (10:57)
[2021-06-10] MEDS: famotidine 20 mg/2 mL INJ IVP ×2 (10:58→20:51)
[2021-06-10 17:33] LABS: Glucose Point of Care 234 mg/dL (70-110)
[2021-06-10] MEDS: remdesivir 100 MG in sodium chloride 0.9% (100 ml) 100 ML IV (18:40)
[2021-06-10] MEDS: enoxaparin 40 mg/0.4 mL Syringe SUBCUT (18:47)
[2021-06-10 21:14] LABS: Glucose Point of Care 240 mg/dL (70-110)
[2021-06-10 21:48] LABS: Glucose Point of Care 151 mg/dL (70-110)
[2021-06-11] VITALS (16 sets, daily range): BP systolic 128–144; BP diastolic 78–92; PULSE 62–93; RESP 16–30; TEMP 36.2–36.8; O2SAT 86–96
[2021-06-11 05:10] LABS: Basophils % 0.1 %; Hemoglobin 15.9 g/dL (11.7-16.6); Nucleated Red Blood Cells % 0 %
[2021-06-11 05:21] LABS: Hematocrit 45.4 % (42.0-52.0); Lymphocytes # 1.1 10^3/uL (0.8-4.8); Mean Corpuscular Hemoglobin 30.8 pg (28.0-34.0); Mean Platelet Volume 11.3 fL (7.4-10.4); Monocytes # 1.4 10^3/uL (0.2-0.9); Monocytes % 13.6 %; Neutrophils # 7.72 10^3/uL (1.8-7.7); Neutrophils % 74.7 %; Platelet Count 193 10^3/cmm (130-400); Red Blood Count 5.16 10^6/uL (4.1-5.3); Red Cell Distribution Width 11.9 % (12.1-15.1); White Blood Count 10.3 10^3/uL (4.0-10.0)
--- NOTE | 2021-06-11 05:24 | PC.NURSE ---
Shift Note Frequent safety and comfort rounds continue. Orders and/or nursing care completed as indicated. Patient monitored for response to intervention and treatment(s). Education provided includes fall risk and call light. Patient and/or customer account representative verbalized understanding. Will continue to monitor.
[2021-06-11 05:39] LABS: Alanine Aminotransferase 19 U/L (0-41); Alkaline Phosphatase 93 IU/L (40-130); Anion Gap 13.9 (5-19); Aspartate Amino Transferase 31 U/L (0-40); Blood Urea Nitrogen 20 mg/dL (8-23); C Reactive Protein 17.4 mg/L (0.0-4.9); Calcium 8.4 mg/dL (8.5-10.5); Carbon Dioxide 30 mmol/L (22-29); Chloride 100 mmol/L (98-107); Globulin 2.6 g/dL (1.3-4.6); Glomerular Filtration Rate 166.9 mL/min (90-130); Glucose 53 mg/dL (65-115); Osmolality Calculated 292 mOsm/kg (285-295); Sodium 141 mmol/L (136-145); Total Bilirubin 0.6 mg/dL (0.15-1.2); Total Protein 5.6 g/dL (6.6-8.7)
[2021-06-11 05:43] LABS: Potassium 2.9 mmol/L (3.5-5.1)
[2021-06-11] MEDS: lidocaine 1% 5 ML in potassium chloride premix 100 ML 25 ML IV (06:01)
[2021-06-11 06:04] LABS: Slide Review Slide Review Perform
[2021-06-11 06:46] LABS: Glucose Point of Care 73 mg/dL (70-110)
[2021-06-11] MEDS: ipratropium-albuterol 3 mL Neb INHALATION ×4 (07:57→20:27)
--- NOTE | 2021-06-11 08:27 | PM.PN ---
Subjective Subjective: Interval history: Hospital course, labs appreciated. On examination patient sitting comfortably in bed on 15 L high flow nasal cannula. Patient is fairly anxious and asking when can he go home. He states he is missing his family and would like to talk to them unfortunately does not have his phone. Patient denies any chest pain, nausea, vomiting. States he is fairly weak. Discussed in detail regarding need for patient to do incentive spirometry and flutter valve. Patient verbalized understanding. Patient is able to do flutter valve but very slowly. Also discussed the need for patient to be doing semiprone to prone position while he lies in bed. Vitals/I&O/Wt Last Vital Signs Temp 97.2 F L 06/11/21 04:00 Pulse 89 06/11/21 08:08 Resp 20 H 06/11/21 08:07 BP 144/89 06/11/21 04:00 Pulse Ox 92 06/11/21 08:07 06/10/21 06/11/21 06/11/21 22:59 06:59 14:59 Intake Total 340 / 580 300 / 880 Output Total 1100 / 1100 500 / 1600 Balance -760 / -520 -200 / -720 Weight last 48 hrs Weight 82.508 kg Weight 83.28 kg Physical Exam Narrative: EXAM NARRATIVE: General: No acute distress, AO x3, HEENT: PERRLA, pupils bilaterally equal and reactive Chest: Normal vesicular breath sounds, no added sounds, equal good air entry bilaterally CVS: S1-S2 regular, soft ejection systolic murmur present at the aortic region, no tachycardia, no gallops, no rubs Abdomen: Soft, nontender, no organomegaly, bowel sounds present Neuro: No focal deficits, no facial deformity, AO x3, power 5/5 in all limbs Urinary Catheter Management^: Driscoll: Cath Placed During This Visit: yes Reason for Continuing Indwelling Catheter: Acute Urinary Retention or Obstruction Urinary Catheter Date of Insertion: 06/06/21 Urinary Catheter Time of Insertion: 18:15 Data : 06/11/21 04:30 06/11/21 04:30 A&P Assessment and plan (1) Sepsis: Initially with sepsis but suspected secondary to COVID-19. Antibiotic discontinued. Status: Acute (2) Acute respiratory failure with hypoxia: Status: Acute (3) COVID-19: As above. Status: Acute (4) Ischemic cardiomyopathy: Status: Acute (5) Atherosclerotic cardiovascular disease: Status: Acute (6) Cerebral ventriculomegaly: Possibly out of proportion ventriculomegaly to brain atrophy. Discussed with him and his daughter. He has been having some issues with memory recently, he reports difficulties with balance. His daughter also reports he has been having some difficulties with urinary continence. Discussed in case normal pressure hydrocephalus, could be reversible changes, or at least arrest progression. Recommended follow-up with neurology for closer assessment, possibly LP trial, consideration for referral for treatment depending on response. They verbalized understanding agreement, will be seeking additional evaluation. Status: Acute (7) Thrombocytopenia: Resolved. Suspect secondary to severe COVID-19. Monitor blood counts. Status: Acute (8) Urinary retention: Driscoll placed. Appears urinary outflow tract obstruction on CT. Status: Acute (9) Leukopenia: Resolved. Secondary to severe COVID-19, sepsis. Status: Acute (10) Elevated lipase: Unclear etiology. He reported he had an episode of vomiting on the day of the admission. Daughter and do not recall having vomiting. CT abdomen pelvis without suggestion of pancreatitis. Reassessed level decreasing to 162. Status: Acute (11) Sleep apnea: Denies using CPAP at home. Status: Acute Qualifiers: Sleep apnea type: obstructive Qualified Code(s): G47.33 - Obstructive sleep apnea (adult) (pediatric) Additional A&P Information Hypoxia secondary to COVID-19 pneumonia: Severe disease. Oxygen supplementation keeping saturation over 88%. Dexamethasone 6 mg daily. Remdesivir to finish a 5-day course. Last dose 06/03/2021. Vitamin C, zinc. DuoNebs every 4 hour, budesonide twice daily as patient is on high flow Pulmonary toilet with incentive spirometry flutter valve. We will monitor inflammatory markers including ferritin, ESR, CRP, D-dimer, fibrinogen. D-dimer elevated. Unfortunately cannot do CTA as patient is allergic to iodine. For now start patient on full dose anticoagulation with Eliquis 5 mg twice daily given high oxygen supplementation requirement, elevated D-dimer. Will monitor for anemia or blood loss. Check procalcitonin. Sputum culture awaited. Urine Legionella, bacterial antigen, blood culture preliminary negative. Low suspicion of bacterial infection for now. For now hold off on antibiotics. Given hypoxia will try to keep patient as negative as possible. Patient net 3 L negative since admission. Start patient on Lasix 40 mg oral daily for now. Fluid restriction up to 1500 cc. Strict input output charting, daily weights. Coag negative staph blood culture positive. Most likely contaminant. Repeat blood cultures have since remained negative. Patient has remained hemodynamically stable afebrile off antibiotics. CAD: Ischemic cardiomyopathy: Last TTE in 2019 shows an EF of 40%. Check echocardiogram. Diuretics as above. No active chest pain. Continue with aspirin, statin, Plavix, beta-john for now. Full code. Cardiac diet. Eliquis for DVT prophylaxis. Famotidine for PUD prophylaxis. Attestations Medical Necessity Statement*: Requires further hospitalization for management of respiratory failure secondary COVID-19 pneumonia requiring high oxygen supplementation. Time Spent in Patient Care: Greater than 35 minutes (>than 50% of time spent in counselling and/or direct pt care on unit). Coding Level of Care Code Acute Project Engineering Director for [facility] Fwd Diagnoses Sepsis A41.9 Acute respiratory failure with hypoxia J96.01 COVID-19 U07.1 Ischemic cardiomyopathy I25.5 Atherosclerotic cardiovascular disease I25.10 Cerebral ventriculomegaly G93.89 Thrombocytopenia D69.6 Urinary retention R33.9 Leukopenia D72.819 Elevated lipase R74.8 Sleep apnea G47.33 Sleep apnea type: obstructive
[2021-06-11] MEDS: guaiFENesin 600 mg Tablet 1200 MG PO ×2 (08:35→18:22)
[2021-06-11] MEDS: atorvastatin 40 mg Tablet PO (08:35)
[2021-06-11] MEDS: clopidogrel 75 mg Tablet PO (08:35)
[2021-06-11] MEDS: aspirin 81 mg EC Tablet PO (08:35)
[2021-06-11] MEDS: zinc gluconate 50 mg Tablet PO (08:39)
[2021-06-11] MEDS: metoprolol tartrate 25 mg Tablet 12.5 MG PO ×2 (08:40→18:22)
[2021-06-11] MEDS: benzonatate 100 mg Capsule PO ×3 (08:40→21:05)
[2021-06-11] MEDS: famotidine 20 mg/2 mL INJ IVP ×2 (09:36→21:06)
[2021-06-11] MEDS: dexamethasone 10 mg/mL INJ 6 MG IVP (09:37)
--- NOTE | 2021-06-11 09:47 | PC.CHAP ---
Pastoral Care Encounter/Spiritual Assessment Type of Contact [] Declined brick maker visit [] Patient/Family/Request visit [] Outpatient visit [] Follow-up visit [] Physician referral [] Code/Alert [x] Routine visit [] Staff referral [] Actively dying [] Patient sleeping [] Family support [] [] Out of room [] Palliative care [] [] Receiving care in room [] Pre-surgical visit [] Trauma [] Long length of stay [] ICU visit [x] Other:covid Relational/Emotional Strength [] Patient feels connected with others/family/visitors/staff [] Distress [] Loneliness/isolation [] Abandonment Spirituality of Patient [] Person of Macey [] Attends Latter-Day of their [place] [] Believes in Prayer [] Reads Bible or Baptist materials [] There are Spiritual issues to be addressed [employer] Interventions [x] Prayer [] Active listening [] Non-anxious presence [] Spiritual/emotional support [] Crisis/trauma care [] Spiritual counseling [] Bereavement support [] Provided bereavement packet [] Provided Bible/devotional materials [] Provided toy/stuffed animal, coloring book to patient or family member [] Provided Communion [] Anointing/[place] [] Salvation [x] Completed spiritual assessment [] Other: Impact on Illness or Injury [] Angry [] Fearful [] Anxious [] Often cries [] Exhaustion [] Unable to work [] Unable to attend roman catholic [] Unable to walk/stand [] Unable to read [] Unable to drive [] Unable to eat/drink [] Unable to sleep [] Unable to be with family [] Patient intubated [] Other: Summary Time spent with patient
[2021-06-11 09:53] LABS: NT Pro B Type Natriuretic Pept 717 pg/mL (0-125); Procalcitonin 0.19 ng/mL (0-0.5)
[2021-06-11 09:54] LABS: Thyroid Stimulating Hormone 1.05 uIU/mL (0.27-4.20)
[2021-06-11 09:58] LABS: Glucose Point of Care 108 mg/dL (70-110)
--- NOTE | 2021-06-11 10:02 | CT_ITS ---
WS: [id number] CT CHEST TECHNIQUE: Noncontrast CT of the chest with coronal and sagittal reformatted images. CLINICAL INFORMATION: covid, sob, high oxygen COMPARISON: CT chest 11 ,019 DLP: 875.[address] scans at [facility] use at least one of these dose optimization techniques: automat ed exposure control; mA and/or kV adjustment per patient size (includes targeted exams where dose is matched to clinical indication); or iterative reconstruction. FINDINGS: Small bilateral pleural effusions right greater than left. Diffuse bilateral hazy groundglass infiltr ates diffusely throughout the right lung and involving the left midlung and left lower lobe. Findings compatible with COVID 19 pneumonia. Vascular calcification. Dense coronary calcification. Sternotomy . Prior CABG. Aortic calcification. No mediastinal or hilar lymphadenopathy. Normal GE junction. Adrenal glands are normal. Fatty atrophy of the pancreas. Calcifications pancreatic head. Hypertrophic changes thoracic spine. CT/CT chest wo con [id number] IMPRESSION: 1. Diffuse groundglass airspace infiltrates in the right greater than left macie gs compatible with COVID 19 pneumonia. This is worse diffusely throughout the r ight lung. 2. Tiny bilateral pleural effusions. 3. Cardiomegaly with vascular and dense coronary calcification. Prior sternoto my and CABG. 4. Small esophageal hiatal hernia.
[2021-06-11 10:07] LABS: Iron 82 ug/dL (59-158); Percent Saturation 47.6 % (20-50); Total Iron Binding Capacity 172 mcg/dl; Unsaturated Iron Binding 90 ug/dL (112-347)
[2021-06-11 11:47] LABS: Glucose Point of Care 259 mg/dL (70-110)
[2021-06-11] MEDS: FUROsemide 10 mg/mL SDV 4mL 40 MG IVP (14:45)
[2021-06-11] MEDS: potassium chloride ER 20 mEq Tablet 80 MEQ PO (15:49)
[2021-06-11 17:17] LABS: Glucose Point of Care 387 mg/dL (70-110)
--- NOTE | 2021-06-11 17:48 | PC.RESP ---
RT Shift Note Frequent safety and respiratory rounds continue. Orders completed as indicated. Patient monitored pre and post treatments throughout shift. Patient Did tolerate treatments appropriately. Condition Improved. Patient and/or international representative educated on respiratory treatment and medications. Patient and/or international representative require further education. Will continue to monitor patient progress.
[2021-06-11] MEDS: ascorbic acid 500 mg Tablet 1000 MG PO (18:22)
[2021-06-11 19:52] LABS: Glucose Point of Care 382 mg/dL (70-110)
[2021-06-11] MEDS: budesonide 0.5 mg/2 mL Neb INHALATION (20:25)
[2021-06-11] MEDS: apixaban 5 mg Tablet PO (21:05)
[2021-06-12] VITALS (14 sets, daily range): BP systolic 114–142; BP diastolic 75–96; PULSE 84–105; RESP 15–32; TEMP 36.4–37.1; O2SAT 90–98; BMI 30.2
[2021-06-12] MEDS: ipratropium-albuterol 3 mL Neb INHALATION ×6 (00:35→21:06)
[2021-06-12] MEDS: acetaminophen 325 mg Tablet 650 MG PO (02:31)
--- NOTE | 2021-06-12 05:00 | USCV_ITS ---
Bryan Moncada Age: 65 Gender: M : 1955 Exam Date: 06/12/2021 06:17 Ordering Phys: Dat Mosley MD Technologist: Lola Batista Exam Location: [facility] [place] Indication: CHF BP: 142 / 88 HR: 87 Rhythm: Sinus Technical Quality: Technically difficult study MEASUREMENTS (Male / Female) Normal Values 2D ECHO LV Diastolic Diameter PLAX 3.8 cm 4.2 - 5.9 / 3.9 - 5.3 cm LV Systolic Diameter PLAX 3.2 cm IVS Diastolic Thickness 1.3 cm 0.6 - 1.0 / 0.6 - 0.9 cm IVS Systolic Thickness 1.9 cm LVPW Diastolic Thickness 1.5 cm 0.6 - 1.0 / 0.6 - 0.9 cm LVPW Systolic Thickness 1.8 cm LVOT Diameter 2.0 cm LV Ejection Fraction 2D Teich 36.3 % LV Ejection Fraction MOD 2C 34.9 % LV Ejection Fraction 2C AL 35.9 % LA Diameter 3.2 cm Aorta at Sinotubular Diameter 2.5 cm M-MODE Aortic Annulus Diameter 4.2 cm LA Ao Ratio MM 0.8 DOPPLER AV Peak Velocity 149.0 cm/s LVOT Peak Velocity 79.0 cm/s AV Area Cont Eq vti 1.8 cm squared AV Area Cont Eq pk 1.7 cm squared MV Area PHT 5.0 cm squared Mitral E to A Ratio 0.7 MV E' Velocity 43.0 cm/s TR Peak Velocity 191.0 cm/s TR Peak Gradient 14.6 mmHg TV Peak E Velocity 77.0 cm/s PV Peak Velocity 94.0 cm/s RV Acceleration Time 0.1 s RV Ejection Time 0.3 s RV AcT/ET 0.3 FINDINGS Left Ventricle Normal left ventricular cavity size. Moderately decreased left ventricular systolic function. Left ventricular ejection fraction is estimated at 35-40 %. Moderate global hypokinesis. Abnormal septal motion consistent with conduction abnormality. Grade I diastolic dysfunction (abnormal relaxation filling pattern), normal to mildly elevated filling pressures. Right Ventricle Normal right ventricular size and systolic function. Right ventricular systolic pressure 18 mmHg. Right Atrium Normal right atrial size. Left Atrium Mildly increased left atrial size. Mitral Valve Moderate mitral annular calcification. Moderately thickened mitral valve. No mitral valve stenosis. Trace mitral valve regurgitation. Aortic Valve Aortic valve not well visualized. Aortic valve sclerosis. No aortic valve stenosis. Tricuspid Valve Tricuspid valve not well visualized. Trace tricuspid valve regurgitation. Pulmonic Valve Pulmonic valve not well visualized. Pericardium No pericardial effusion. Aorta Aorta not well visualized. CONCLUSIONS 1. This is a technically difficult study. 2. Normal left ventricular cavity size. Moderately decreased left ventricular systolic function. Left ventricular ejection fraction is estimated at 35-40%. Moderate global hypokinesis. Abnormal septal motion consistent with conduction abnormality. Grade I diastolic dysfunction (abnormal relaxation filling pattern), normal to mildly elevated filling pressures. 3. Mildly increased left atrial size. 4. When compared to previous echocardiogram dated 01/15/2019, there may not have been any significant change. Margoth Olivera MD (Electronically Signed) Final Date: 12 June 2021 13:17 S
--- NOTE | 2021-06-12 05:40 | PC.RESP ---
RT Shift Note Frequent safety and respiratory rounds continue. Orders completed as indicated. Patient monitored pre and post treatments throughout shift. Patient tolerated treatments appropriately. Condition did not change. Patient educated on respiratory treatment and medications. Patient verbalized understanding. Will continue to monitor patient progress.
--- NOTE | 2021-06-12 06:00 | XRR_ITS ---
PROCEDURE INFORMATION: Exam: XR Chest Exam date and time: 06/12/2021 6:00 AM Age: 65 years old Clinical indication: Cough; Patient HX: Follow up covid TECHNIQUE: Imaging protocol: XR of the chest. Views: 1 view. COMPARISON: CT chest [facility] [id number] 06/11/2021 11:02 AM FINDINGS: Lungs: Interval improvement in bilateral pulmonary opacities without complete resolution. Pleural spaces: Unremarkable. No pleural effusion. No pneumothorax. Heart/Mediastinum: There is mild cardiomegaly. Bones/joints: There has been a median sternotomy. XR/XR chest 1V portable [id number] IMPRESSION: 1. Interval improvement in bilateral pulmonary opacities without complete resolution. 2. Mild cardiomegaly.
[2021-06-12 06:40] LABS: Glucose Point of Care 116 mg/dL (70-110)
[2021-06-12 07:18] LABS: Basophils % 0.2 %; Eosinophils % 0.1 %; Hemoglobin 15.7 g/dL (11.7-16.6); Lymphocytes # 1.7 10^3/uL (0.8-4.8); Lymphocytes % 15.7 %; Mean Corpuscular HGB Conc 34.9 g/dL (30.0-36.0); Mean Corpuscular Hemoglobin 30.7 pg (28.0-34.0); Mean Corpuscular Volume 88.1 fL (80-94); Mean Platelet Volume 11.2 fL (7.4-10.4); Monocytes % 8.8 %; Neutrophils # 8.07 10^3/uL (1.8-7.7); Neutrophils % 74.5 %; Nucleated Red Blood Cells % 0 %; Platelet Count 191 10^3/cmm (130-400); Red Blood Count 5.11 10^6/uL (4.1-5.3); Red Cell Distribution Width 11.8 % (12.1-15.1); White Blood Count 10.8 10^3/uL (4.0-10.0)
[2021-06-12 07:32] LABS: D Dimer 1.73 ug/mIFEU (0-0.59)
[2021-06-12 08:02] LABS: Alanine Aminotransferase 19 U/L (0-41); Albumin Level 3.1 g/dL (3.5-5.2); Alkaline Phosphatase 105 IU/L (40-130); Anion Gap 14.1 (5-19); Aspartate Amino Transferase 28 U/L (0-40); Blood Urea Nitrogen 16 mg/dL (8-23); C Reactive Protein 10.3 mg/L (0.0-4.9); Calcium 8.2 mg/dL (8.5-10.5); Carbon Dioxide 25 mmol/L (22-29); Chloride 102 mmol/L (98-107); Cholesterol 84 mg/dL (0-200); Globulin 2.3 g/dL (1.3-4.6); Glomerular Filtration Rate 166.9 mL/min (90-130); Glucose 102 mg/dL (65-115); HDL Cholesterol 29 mg/dL (60-100); LDL Cholesterol Calculated 44 mg/dL (50-129); NT Pro B Type Natriuretic Pept 611 pg/mL (0-125); Osmolality Calculated 287 mOsm/kg (285-295); Potassium 3.1 mmol/L (3.5-5.1); Sodium 138 mmol/L (136-145); Total Bilirubin 0.7 mg/dL (0.15-1.2); Total Protein 5.4 g/dL (6.6-8.7); Triglycerides 57 mg/dL (0-150); VLDL Cholestrol Calculation 11 mg/dL (0-30)
[2021-06-12 08:14] LABS: Slide Review Slide Review Perform
[2021-06-12 08:15] LABS: Ferritin 1628 ng/mL (30-400)
[2021-06-12 08:56] LABS: Erythrocyte Sedimentation Rate 13 mm/hr (0-10)
[2021-06-12] MEDS: famotidine 20 mg/2 mL INJ IVP ×2 (09:05→20:22)
[2021-06-12] MEDS: FUROsemide 10 mg/mL SDV 4mL 40 MG IVP (09:05)
[2021-06-12] MEDS: clopidogrel 75 mg Tablet PO (09:06)
[2021-06-12] MEDS: benzonatate 100 mg Capsule PO ×3 (09:06→20:22)
[2021-06-12] MEDS: metoprolol tartrate 25 mg Tablet 12.5 MG PO ×2 (09:06→17:23)
[2021-06-12] MEDS: aspirin 81 mg EC Tablet PO (09:06)
[2021-06-12] MEDS: atorvastatin 40 mg Tablet PO (09:06)
[2021-06-12] MEDS: guaiFENesin 600 mg Tablet 1200 MG PO ×2 (09:06→17:23)
[2021-06-12] MEDS: zinc gluconate 50 mg Tablet PO (09:06)
[2021-06-12] MEDS: FUROsemide 40 mg Tablet PO (09:07)
[2021-06-12] MEDS: budesonide 0.5 mg/2 mL Neb INHALATION ×2 (09:17→21:06)
[2021-06-12] MEDS: potassium chloride oral liq 20 mEq/15 mL UDC 80 MEQ PO (10:03)
[2021-06-12] MEDS: apixaban 5 mg Tablet PO ×2 (10:03→20:22)
[2021-06-12] MEDS: ascorbic acid 500 mg Tablet 1000 MG PO ×2 (10:04→17:25)
[2021-06-12] MEDS: dexamethasone 10 mg/mL INJ 6 MG IVP (10:45)
[2021-06-12 11:33] LABS: Glucose Point of Care 251 mg/dL (70-110)
--- NOTE | 2021-06-12 12:37 | PM.PN ---
Subjective Subjective: Interval history: No acute events overnight. Patient has remained hemodynamically stable and afebrile. Currently is on 8 L high flow nasal cannula saturating 92%. On examination sitting on chair at bedside. He states he is feeling better than before. Has more energy. Patient does look more jovial today. He is working with incentive spirometry and flutter valve when possible. He is trying to do those at least every 2-3 hours. He is asking when can he go home. We did discuss the whole treatment plan going forward. Vitals/I&O/Wt Last Vital Signs Temp 98.0 F 06/12/21 08:00 Pulse 84 06/12/21 09:18 Resp 19 H 06/12/21 09:18 BP 133/80 06/12/21 08:00 Pulse Ox 92 06/12/21 09:18 06/11/21 06/12/21 06/12/21 22:59 06:59 14:59 Intake Total 240 / 465 720 / 720 Output Total 200 / 200 Balance 240 / 465 -200 / 265 720 / 720 Weight last 48 hrs Weight 82.508 kg Weight 82.508 kg Physical Exam Narrative: EXAM NARRATIVE: General: No acute distress, AO x3, HEENT: PERRLA, pupils bilaterally equal and reactive Chest: Normal vesicular breath sounds, no added sounds, equal good air entry bilaterally CVS: S1-S2 regular, soft ejection systolic murmur present at the aortic region, no tachycardia, no gallops, no rubs Abdomen: Soft, nontender, no organomegaly, bowel sounds present Neuro: No focal deficits, no facial deformity, AO x3, power 5/5 in all limbs Urinary Catheter Management^: Driscoll: Cath Placed During This Visit: yes Reason for Continuing Indwelling Catheter: Other Urinary Catheter Date of Insertion: 06/06/21 Urinary Catheter Time of Insertion: 18:15 Data : 06/12/21 05:55 06/12/21 05:55 Micro: Microbiology 06/06/21 17:01 Blood Culture - Final Blood NO GROWTH AFTER 5 DAYS A&P Assessment and plan (1) Sepsis: Initially with sepsis but suspected secondary to COVID-19. Antibiotic discontinued. Status: Acute (2) Acute respiratory failure with hypoxia: Status: Acute (3) COVID-19: As above. Status: Acute (4) Ischemic cardiomyopathy: Status: Acute (5) Atherosclerotic cardiovascular disease: Status: Acute (6) Cerebral ventriculomegaly: Possibly out of proportion ventriculomegaly to brain atrophy. Discussed with him and his daughter. He has been having some issues with memory recently, he reports difficulties with balance. His daughter also reports he has been having some difficulties with urinary continence. Discussed in case normal pressure hydrocephalus, could be reversible changes, or at least arrest progression. Recommended follow-up with neurology for closer assessment, possibly LP trial, consideration for referral for treatment depending on response. They verbalized understanding agreement, will be seeking additional evaluation. Status: Acute (7) Thrombocytopenia: Resolved. Suspect secondary to severe COVID-19. Monitor blood counts. Status: Acute (8) Urinary retention: Driscoll placed. Appears urinary outflow tract obstruction on CT. Status: Acute (9) Leukopenia: Resolved. Secondary to severe COVID-19, sepsis. Status: Acute (10) Elevated lipase: Unclear etiology. He reported he had an episode of vomiting on the day of the admission. Daughter and do not recall having vomiting. CT abdomen pelvis without suggestion of pancreatitis. Reassessed level decreasing to 162. Status: Acute (11) Sleep apnea: Denies using CPAP at home. Status: Acute Qualifiers: Sleep apnea type: obstructive Qualified Code(s): G47.33 - Obstructive sleep apnea (adult) (pediatric) Additional A&P Information Hypoxia secondary to COVID-19 pneumonia: Severe disease. Oxygen supplementation keeping saturation over 88%. Dexamethasone 6 mg daily. Has finished his course of remdesivir. Vitamin C, zinc. DuoNebs every 4 hour, budesonide twice daily as patient is on high flow Pulmonary toilet with incentive spirometry flutter valve. We will monitor inflammatory markers including ferritin, ESR, CRP, D-dimer, fibrinogen. D-dimer elevated. Unfortunately cannot do CTA as patient is allergic to iodine. For now continue with full dose anticoagulation with Eliquis 5 mg twice daily given high oxygen supplementation requirement, elevated D-dimer. Will monitor for anemia or blood loss. Sputum culture awaited. Urine Legionella, bacterial antigen, procalcitonin negative blood culture preliminary negative. Low suspicion of bacterial infection for now. For now hold off on antibiotics. Given hypoxia will try to keep patient as negative as possible. Patient net 5 L negative since admission. Start patient on Lasix 40 mg oral daily for now. Fluid restriction up to 1500 cc. Strict input output charting, daily weights. Replete potassium. Coag negative staph blood culture positive. Most likely contaminant. Repeat blood cultures have since remained negative. Patient has remained hemodynamically stable afebrile off antibiotics. CAD: Ischemic cardiomyopathy: Last TTE in 2019 shows an EF of 40%. Check echocardiogram. Results awaited. Diuretics as above. No active chest pain. Continue with aspirin, statin, Plavix, beta-john for now. Type 2 diabetes mellitus: Start patient on Lantus 35 every morning. Insulin sliding scale at moderate dose protocol. Full code. Carb consistent cardiac diet. Eliquis for DVT prophylaxis. Famotidine for PUD prophylaxis. Attestations Medical Necessity Statement*: Requires further hospitalization for management of persistent hypoxia secondary COVID-19 pneumonia and congestive heart failure requiring high flow nasal cannula oxygen supplementation. Time Spent in Patient Care: Greater than 35 minutes (>than 50% of time spent in counselling and/or direct pt care on unit). Coding Level of Care Code Acute Professor Of Marketing for [facility] Diagnoses Sepsis A41.9 Acute respiratory failure with hypoxia J96.01 COVID-19 U07.1 Ischemic cardiomyopathy I25.5 Atherosclerotic cardiovascular disease I25.10 Cerebral ventriculomegaly G93.89 Thrombocytopenia D69.6 Urinary retention R33.9 Leukopenia D72.819 Elevated lipase R74.8 Sleep apnea G47.33 Sleep apnea type: obstructive
--- NOTE | 2021-06-12 12:56 | PC.SOCIAL ---
IMM Update Pg. 2 of IMM updated and reviewed with patient's daughter over the phone. Initialed, dated, and timed, placed in chart.
--- NOTE | 2021-06-12 13:31 | PC.NURSE ---
DaughterThelma give update on patient.
--- NOTE | 2021-06-12 15:33 | PC.NURSE ---
0745 Report received. Assessment completed. Pt resting in bed, AAOx3. Pt states that he is ready to go home. Driscoll cath draining clear parris urine to BSD. No other issues noted. 1100 Pt encouraged to get up for meals. Pt assisted by this nurse to get up for breakfast and then PT assisted up for lunch. Pt c/o weakness, education provided r/t discharge and the possible need for therapy past hospitalization, pt adamant that he not go to intermediate. This nurse explained to him that is was most likely for therapy purposes. Pt needs reinforcement r/t discharge goals and needs. Will monitor.
[2021-06-12 16:42] LABS: Glucose Point of Care 263 mg/dL (70-110)
--- NOTE | 2021-06-12 18:12 | PC.RESP ---
RT Shift Note Frequent safety and respiratory rounds continue. Orders completed as indicated. Patient monitored pre and post treatments throughout shift. Patient tolerated treatments appropriately. Condition did not change. Patient and/or architectural representative educated on respiratory treatment and medications. Patient and/or architectural representative verbalized understanding. Will continue to monitor patient progress.
--- NOTE | 2021-06-12 18:20 | PC.NURSE ---
Shift Note Frequent safety and comfort rounds continue. Orders and/or nursing care completed as indicated. Patient monitored for response to intervention and treatment(s). Education provided includes treatment plan and medication info. Pt verbalizes understanding but requires reminders.Pt denies any needs. Encouraged to use IS and flutter valve as much as possible in order to facilitate his wellness and discharge. Will continue to monitor.
[2021-06-12 21:35] LABS: Glucose Point of Care 239 mg/dL (70-110)
[2021-06-13] VITALS (14 sets, daily range): BP systolic 115–142; BP diastolic 68–101; PULSE 79–113; RESP 17–35; TEMP 36.4–36.8; O2SAT 89–98
[2021-06-13] MEDS: ipratropium-albuterol 3 mL Neb INHALATION ×5 (00:18→20:51)
--- NOTE | 2021-06-13 05:30 | PC.RESP ---
RT Shift Note Frequent safety and respiratory rounds continue. Orders completed as indicated. Patient monitored pre and post treatments throughout shift. Patient did tolerate treatments appropriately. Condition did not change. Patient and/or statement services representative educated on respiratory treatment and medications. Patient and/or statement services representative verbalized understanding. Will continue to monitor patient progress.
--- NOTE | 2021-06-13 05:41 | PC.NURSE ---
Intermittent confusion tonight for aprox. an hour. Patient fulled off oxygen and pulled out IV. Replaced IV in Rt forearm. No futher issues. Will continue to monitor.
[2021-06-13 07:04] LABS: Glucose Point of Care 223 mg/dL (70-110)
[2021-06-13 07:06] LABS: Basophils % 0.2 %; Eosinophils % 0.2 %; Hematocrit 46.3 % (42.0-52.0); Lymphocytes # 1.5 10^3/uL (0.8-4.8); Lymphocytes % 12.1 %; Mean Corpuscular HGB Conc 34.6 g/dL (30.0-36.0); Mean Corpuscular Hemoglobin 30.5 pg (28.0-34.0); Mean Corpuscular Volume 88.2 fL (80-94); Mean Platelet Volume 11.2 fL (7.4-10.4); Monocytes # 1.1 10^3/uL (0.2-0.9); Monocytes % 9.2 %; Neutrophils # 9.47 10^3/uL (1.8-7.7); Neutrophils % 77.5 %; Nucleated Red Blood Cells % 0 %; Platelet Count 203 10^3/cmm (130-400); Red Blood Count 5.25 10^6/uL (4.1-5.3); Red Cell Distribution Width 11.9 % (12.1-15.1); White Blood Count 12.2 10^3/uL (4.0-10.0)
[2021-06-13 07:18] LABS: D Dimer 1.55 ug/mIFEU (0-0.59)
[2021-06-13 07:34] LABS: Alanine Aminotransferase 17 U/L (0-41); Albumin Level 3.1 g/dL (3.5-5.2); Alkaline Phosphatase 119 IU/L (40-130); Anion Gap 15.6 (5-19); Aspartate Amino Transferase 25 U/L (0-40); Blood Urea Nitrogen 16 mg/dL (8-23); C Reactive Protein 19.7 mg/L (0.0-4.9); Calcium 8.6 mg/dL (8.5-10.5); Carbon Dioxide 25 mmol/L (22-29); Chloride 98 mmol/L (98-107); Globulin 2.8 g/dL (1.3-4.6); Glomerular Filtration Rate 166.9 mL/min (90-130); Glucose 217 mg/dL (65-115); NT Pro B Type Natriuretic Pept 603 pg/mL (0-125); Osmolality Calculated 288 mOsm/kg (285-295); Potassium 3.6 mmol/L (3.5-5.1); Sodium 135 mmol/L (136-145); Total Bilirubin 0.8 mg/dL (0.15-1.2); Total Protein 5.9 g/dL (6.6-8.7)
[2021-06-13] MEDS: budesonide 0.5 mg/2 mL Neb INHALATION ×2 (07:50→20:51)
[2021-06-13 07:52] LABS: Ferritin 1706 ng/mL (30-400)
[2021-06-13] MEDS: zinc gluconate 50 mg Tablet PO (09:45)
[2021-06-13] MEDS: ascorbic acid 500 mg Tablet 1000 MG PO ×2 (09:45→17:16)
[2021-06-13] MEDS: guaiFENesin 600 mg Tablet 1200 MG PO ×2 (09:45→17:16)
[2021-06-13] MEDS: benzonatate 100 mg Capsule PO ×3 (09:45→21:54)
[2021-06-13] MEDS: metoprolol tartrate 25 mg Tablet PO ×2 (09:46→17:16)
[2021-06-13] MEDS: dexamethasone 10 mg/mL INJ 6 MG IVP (09:46)
[2021-06-13] MEDS: aspirin 81 mg EC Tablet PO (09:46)
[2021-06-13] MEDS: clopidogrel 75 mg Tablet PO (09:46)
[2021-06-13] MEDS: atorvastatin 40 mg Tablet PO (09:46)
[2021-06-13] MEDS: famotidine 20 mg/2 mL INJ IVP ×2 (09:46→21:40)
[2021-06-13] MEDS: FUROsemide 40 mg Tablet PO (09:47)
[2021-06-13 09:53] LABS: ABG PCO2 33.2 mmHg (35-45); ABG PH Result 7.52 (7.35-7.45); Alveolar-Arterial Oxygen Gradi 5.6 mmHg (5-10); Arterial Blood Gas Hematocrit 50.8 % (42-52); Base Excess ABG 4.5 mmol/L (-2.0-2.0); Blood Gas Allen Test Pos; Blood Gas Sample Site Radial, right; Blood Gas Sample Type Arterial; Carboxyhemoglobin 0.7 %THgb (0.4-20.1); HGB O2 Sat 93.8 % (95-100); Ionized Calcium Level - ABG 1.1 mmol/L (1.1-1.4); Methemoglobin 0.6 % (0.4-1.5); Oxygen Device NC; Oxygen Saturation ABG 94.9; PO2 ABG 65.4 mmHg (80.0-100.0); Potassium Level - ABG 3.6 mmol/L (3.5-5.0); Total Hemoglobin 16.6 g/dL (14-18)
[2021-06-13] MEDS: apixaban 5 mg Tablet PO ×2 (09:54→21:54)
--- NOTE | 2021-06-13 10:57 | PC.CHAP ---
Pastoral Care Encounter/Spiritual Assessment Type of Contact [] Declined intensivist visit [] Patient/Family/Request visit [] Outpatient visit [] Follow-up visit [] Physician referral [] Code/Alert [x] Routine visit [] Staff referral [] Actively dying [] Patient sleeping [] Family support [] [] Out of room [] Palliative care [] [] Receiving care in room [] Pre-surgical visit [] Trauma [] Long length of stay [] ICU visit [x] Other: 2A Relational/Emotional Strength [] Patient feels connected with others/family/visitors/staff [] Distress [] Loneliness/isolation [] Abandonment Spirituality of Patient [] Person of Macey [] Attends Nondenominational of their [place] [] Believes in Prayer [] Reads Bible or Tenriism materials [] There are Spiritual issues to be addressed Manager Trust Interventions [x] Prayer [] Active listening [] Non-anxious presence [] Spiritual/emotional support [] Crisis/trauma care [] Spiritual counseling [] Bereavement support [] Provided bereavement packet [] Provided Bible/devotional materials [] Provided toy/stuffed animal, coloring book to patient or family member [] Provided Communion [] Anointing/[place] [] Salvation [x] Completed spiritual assessment [] Other: Impact on Illness or Injury [] Angry [] Fearful [] Anxious [] Often cries [] Exhaustion [] Unable to work [] Unable to attend episcopal [] Unable to walk/stand [] Unable to read [] Unable to drive [] Unable to eat/drink [] Unable to sleep [] Unable to be with family [] Patient intubated [] Other: Summary Time spent with patient
[2021-06-13 11:36] LABS: Glucose Point of Care 255 mg/dL (70-110)
[2021-06-13 17:17] LABS: Glucose Point of Care 296 mg/dL (70-110)
--- NOTE | 2021-06-13 17:37 | PC.RESP ---
RT Shift Note Frequent safety and respiratory rounds continue. Orders completed as indicated. Patient monitored pre and post treatments throughout shift. Patient tolerated treatments appropriately. Condition did not change. Patient and/or packaging sales representative educated on respiratory treatment and medications. Patient and/or packaging sales representative verbalized understanding. Will continue to monitor patient progress.
--- NOTE | 2021-06-13 17:45 | P.PN_ITS ---
Subjective Subjective: Interval history: No acute events overnight. Patient was turned up to 10 L last night. Saturating 97% on 8 L high flow nasal cannula sitting up in chair today. Turned down to 7 L HFNC during my examination while he was saturating 92%. Denies any nausea vomiting, headache. States he is feeling better. During the day he was turned down to 6 L saturating 98%. Vitals/I&O/Wt Last Vital Signs Temp 97.9 F 06/13/21 16:00 Pulse 106 H 06/13/21 16:00 Resp 19 H 06/13/21 16:00 BP 115/74 06/13/21 16:00 Pulse Ox 98 06/13/21 16:00 06/13/21 06/13/21 06/13/21 06:59 14:59 22:59 Intake Total 118 / 1556 720 / 720 360 / 1080 Output Total 375 / 1725 Balance -257 / -169 720 / 720 360 / 1080 Weight last 48 hrs Weight 77.065 kg Weight 82.508 kg Physical Exam Narrative: EXAM NARRATIVE: General: No acute distress, AO x3, HEENT: PERRLA, pupils bilaterally equal and reactive Chest: Normal vesicular breath sounds, no added sounds, equal good air entry bilaterally CVS: S1-S2 regular, soft ejection systolic murmur present at the aortic region, no tachycardia, no gallops, no rubs Abdomen: Soft, nontender, no organomegaly, bowel sounds present Neuro: No focal deficits, no facial deformity, AO x3, power 5/5 in all limbs Urinary Catheter Management^: Driscoll: Cath Placed During This Visit: yes Reason for Continuing Indwelling Catheter: Accurate Measurement of Urinary Output in Critically Ill Patients Urinary Catheter Date of Insertion: 06/06/21 Urinary Catheter Time of Insertion: 18:15 Data : 06/13/21 06:22 06/13/21 06:22 Micro: Microbiology 06/07/21 14:00 Blood Culture - Final Blood NO GROWTH AFTER 5 DAYS 06/07/21 13:50 Blood Culture - Final Blood NO GROWTH AFTER 5 DAYS 06/06/21 13:40 Blood Culture - Final Blood Coagulase negativ staphylococc A&P Assessment and plan (1) Sepsis: Initially with sepsis but suspected secondary to COVID-19. Antibiotic discontinued. Status: Acute (2) Acute respiratory failure with hypoxia: Status: Acute (3) COVID-19: As above. Status: Acute (4) Ischemic cardiomyopathy: Status: Acute (5) Atherosclerotic cardiovascular disease: Status: Acute (6) Cerebral ventriculomegaly: Possibly out of proportion ventriculomegaly to brain atrophy. Discussed with him and his daughter. He has been having some issues with memory recently, he reports difficulties with balance. His daughter also reports he has been having some difficulties with urinary continence. Discussed in case normal pressure hydrocephalus, could be reversible changes, or at least arrest progression. Recommended follow-up with neurology for closer assessment, possibly LP trial, consideration for referral for treatment depending on response. They verbalized understanding agreement, will be seeking additional evaluation. Status: Acute (7) Thrombocytopenia: Resolved. Suspect secondary to severe COVID-19. Monitor blood counts. Status: Acute (8) Urinary retention: Driscoll placed. Appears urinary outflow tract obstruction on CT. Status: Acute (9) Leukopenia: Resolved. Secondary to severe COVID-19, sepsis. Status: Acute (10) Elevated lipase: Unclear etiology. He reported he had an episode of vomiting on the day of the admission. Daughter and do not recall having vomiting. CT abdomen pelvis without suggestion of pancreatitis. Reassessed level decreasing to 162. Status: Acute (11) Sleep apnea: Denies using CPAP at home. Status: Acute Qualifiers: Sleep apnea type: obstructive Qualified Code(s): G47.33 - Obstructive sleep apnea (adult) (pediatric) Additional A&P Information Hypoxia secondary to COVID-19 pneumonia: Severe disease. Oxygen supplementation keeping saturation over 88%. Dexamethasone 6 mg daily. Has finished his course of remdesivir. Vitamin C, zinc. DuoNebs every 4 hour, budesonide twice daily as patient is on high flow Pulmonary toilet with incentive spirometry flutter valve. We will monitor inflammatory markers including ferritin, ESR, CRP, D-dimer, fibrinogen. D-dimer elevated. Unfortunately cannot do CTA as patient is allergic to iodine. For now continue with full dose anticoagulation with Eliquis 5 mg twice daily given high oxygen supplementation requirement, elevated D-dimer. Will monitor for anemia or blood loss. Sputum culture awaited. Urine Legionella, bacterial antigen, procalcitonin negative blood culture preliminary negative. Low suspicion of bacterial infection for now. For now hold off on antibiotics. Given hypoxia will try to keep patient as negative as possible. Echocardiogram shows EF 35 to 40% with moderate global LV hypokinesia with grade 1 diastolic dysfunction with RVSP of 18 mmHg. Patient overall 4.5 L negative since admission. Continue with Lasix 40 mg oral daily for now. Fluid restriction up to 1500 cc. Strict input output charting, daily weights. Replete potassium. Coag negative staph blood culture positive. Most likely contaminant. Repeat blood cultures have since remained negative. Patient has remained hemodynamically stable afebrile off antibiotics. CAD: Ischemic cardiomyopathy: Diuretics as above. No active chest pain. Continue with aspirin, statin, Plavix, beta-john for now. Type 2 diabetes mellitus: Start patient on Lantus 35 every morning. Insulin sliding scale at moderate dose protocol. Full code. Carb consistent cardiac diet. Eliquis for DVT prophylaxis. Famotidine for PUD prophylaxis. Attestations Medical Necessity Statement*: Requires further hospitalization for management of hypoxia needing high oxygen supplementation secondary COVID-19 pneumonia Time Spent in Patient Care: Greater than 35 minutes (>than 50% of time spent in counselling and/or direct pt care on unit) . Coding Level of Care Code Acute Remote Sensing Technologist for [facility] Fwd Diagnoses Sepsis A41.9 Acute respiratory failure with hypoxia J96.01 COVID-19 U07.1 Ischemic cardiomyopathy I25.5 Atherosclerotic cardiovascular disease I25.10 Cerebral ventriculomegaly G93.89 Thrombocytopenia D69.6 Urinary retention R33.9 Leukopenia D72.819 Elevated lipase R74.8 Sleep apnea G47.33 Sleep apnea type: obstructive
--- NOTE | 2021-06-13 18:03 | PC.NURSE ---
Shift Note Patient's oxygen level went down to 8L via NC patient has tolerated well. Patient got up to chair and back to bed a few times during this shift. Patient has been alert and orientated. Frequent safety and comfort rounds continue. Orders and/or nursing care completed as indicated. Patient monitored for response to intervention and treatment(s). Education provided includes conserving oxygen, getting out of bed, and deep breathing. Patient and/or rental representative states verbal understanding. Will continue to monitor.
[2021-06-13 20:27] LABS: Glucose Point of Care 286 mg/dL (70-110)
--- NOTE | 2021-06-13 20:54 | PC.RESP ---
RT Shift Note Frequent safety and respiratory rounds continue. Orders completed as indicated. Patient monitored pre and post treatments throughout shift. Patient [Did.] tolerate treatments appropriately. Condition [.DidNotChange]. Patient and/or insurance account representative educated on respiratory treatment and medications. Patient and/or insurance account representative [ResponseToTeaching]. Will continue to monitor patient progress.
[2021-06-14] VITALS (16 sets, daily range): BP systolic 115–145; BP diastolic 78–104; PULSE 77–102; RESP 16–28; TEMP 36.3–36.9; O2SAT 82–93
[2021-06-14] MEDS: ipratropium-albuterol 3 mL Neb INHALATION ×6 (00:40→20:20)
--- NOTE | 2021-06-14 06:00 | XR_ITS ---
WS: [id number] Portable AP upright chest, 06/14/2021 Clinical Data: covid Comparison: Portable chest, 06/12/2021. Findings: There are bilateral pulmonary opacities which are unchanged. The left upper lobe is clear. The heart is enlarged. Midline sternotomy sutures are present. Monitor leads on the chest wall. XR/XR chest 1V portable [id number] Impression: 1. No change in bilateral pulmonary opacities. 2. Cardiomegaly.
[2021-06-14 06:23] LABS: Glucose Point of Care 80 mg/dL (70-110)
[2021-06-14 07:16] LABS: D Dimer 1.34 ug/mIFEU (0-0.59)
[2021-06-14 07:35] LABS: Alanine Aminotransferase 18 U/L (0-41); Alkaline Phosphatase 130 IU/L (40-130); Anion Gap 14.7 (5-19); Aspartate Amino Transferase 26 U/L (0-40); Blood Urea Nitrogen 15 mg/dL (8-23); Calcium 8.7 mg/dL (8.5-10.5); Carbon Dioxide 26 mmol/L (22-29); Chloride 99 mmol/L (98-107); Globulin 3.2 g/dL (1.3-4.6); Glomerular Filtration Rate 166.9 mL/min (90-130); Glucose 93 mg/dL (65-115); NT Pro B Type Natriuretic Pept 527 pg/mL (0-125); Osmolality Calculated 283 mOsm/kg (285-295); Potassium 3.7 mmol/L (3.5-5.1); Sodium 136 mmol/L (136-145); Total Bilirubin 0.8 mg/dL (0.15-1.2); Total Protein 6.2 g/dL (6.6-8.7)
[2021-06-14] MEDS: clopidogrel 75 mg Tablet PO (08:33)
[2021-06-14] MEDS: guaiFENesin 600 mg Tablet 1200 MG PO ×2 (08:33→18:10)
[2021-06-14] MEDS: metoprolol tartrate 25 mg Tablet PO ×2 (08:33→18:10)
[2021-06-14] MEDS: zinc gluconate 50 mg Tablet PO (08:33)
[2021-06-14] MEDS: famotidine 20 mg/2 mL INJ IVP ×2 (08:33→21:22)
[2021-06-14] MEDS: dexamethasone 10 mg/mL INJ 6 MG IVP (08:33)
[2021-06-14] MEDS: benzonatate 100 mg Capsule PO ×3 (08:33→21:13)
[2021-06-14] MEDS: aspirin 81 mg EC Tablet PO (08:33)
[2021-06-14] MEDS: atorvastatin 40 mg Tablet PO (08:33)
[2021-06-14] MEDS: FUROsemide 40 mg Tablet PO (08:33)
[2021-06-14] MEDS: ascorbic acid 500 mg Tablet 1000 MG PO (08:43)
[2021-06-14] MEDS: apixaban 5 mg Tablet PO ×2 (08:43→21:12)
[2021-06-14 08:59] LABS: Erythrocyte Sedimentation Rate 17 mm/hr (0-10)
[2021-06-14] MEDS: budesonide 0.5 mg/2 mL Neb INHALATION ×2 (09:01→20:20)
[2021-06-14 11:36] LABS: Glucose Point of Care 249 mg/dL (70-110)
--- NOTE | 2021-06-14 14:30 | PC.SOCIAL ---
IMM update IMM updated with patient via telephone. Verbalized an understanding. Initialed, dated, timed, and placed in chart.
--- NOTE | 2021-06-14 16:59 | PM.PN ---
Subjective Subjective: Interval history: No current overnight. Patient doing well. Denies any nausea vomiting, headache. Continues to remain on 7 L high flow nasal cannula saturating 92%. Sitting up in chair. Working well with incentive spirometer and flutter valve. Asking when can he go home. We did discuss that we will switch him over to oxygen reservoir therapy within next 24 hours and see how he does and plan to discharge accordingly. Vitals/I&O/Wt Last Vital Signs Temp 98.3 F 06/14/21 16:00 Pulse 90 06/14/21 16:17 Resp 18 06/14/21 16:17 BP 115/78 06/14/21 16:00 Pulse Ox 91 06/14/21 16:17 06/14/21 06/14/21 06/14/21 06:59 14:59 22:59 Intake Total 480 / 480 Output Total 1300 / 2400 Balance -1300 / -840 480 / 480 Weight last 48 hrs Weight 78.199 kg Weight 77.065 kg Physical Exam Narrative: EXAM NARRATIVE: General: No acute distress, AO x3, HEENT: PERRLA, pupils bilaterally equal and reactive Chest: Normal vesicular breath sounds, no added sounds, equal good air entry bilaterally CVS: S1-S2 regular, soft ejection systolic murmur present at the aortic region, no tachycardia, no gallops, no rubs Abdomen: Soft, nontender, no organomegaly, bowel sounds present Neuro: No focal deficits, no facial deformity, AO x3, power 5/5 in all limbs Urinary Catheter Management^: Driscoll: Cath Placed During This Visit: yes Reason for Continuing Indwelling Catheter: Accurate Measurement of Urinary Output in Critically Ill Patients Urinary Catheter Date of Insertion: 06/06/21 Urinary Catheter Time of Insertion: 18:15 Data : 06/13/21 06:22 06/14/21 05:55 A&P Assessment and plan (1) Sepsis: Initially with sepsis but suspected secondary to COVID-19. Antibiotic discontinued. Status: Acute (2) Acute respiratory failure with hypoxia: Status: Acute (3) COVID-19: As above. Status: Acute (4) Ischemic cardiomyopathy: Status: Acute (5) Atherosclerotic cardiovascular disease: Status: Acute (6) Cerebral ventriculomegaly: Possibly out of proportion ventriculomegaly to brain atrophy. Discussed with him and his daughter. He has been having some issues with memory recently, he reports difficulties with balance. His daughter also reports he has been having some difficulties with urinary continence. Discussed in case normal pressure hydrocephalus, could be reversible changes, or at least arrest progression. Recommended follow-up with neurology for closer assessment, possibly LP trial, consideration for referral for treatment depending on response. They verbalized understanding agreement, will be seeking additional evaluation. Status: Acute (7) Thrombocytopenia: Resolved. Suspect secondary to severe COVID-19. Monitor blood counts. Status: Acute (8) Urinary retention: Driscoll placed. Appears urinary outflow tract obstruction on CT. Status: Acute (9) Leukopenia: Resolved. Secondary to severe COVID-19, sepsis. Status: Acute (10) Elevated lipase: Unclear etiology. He reported he had an episode of vomiting on the day of the admission. Daughter and do not recall having vomiting. CT abdomen pelvis without suggestion of pancreatitis. Reassessed level decreasing to 162. Status: Acute (11) Sleep apnea: Denies using CPAP at home. Status: Acute Qualifiers: Sleep apnea type: obstructive Qualified Code(s): G47.33 - Obstructive sleep apnea (adult) (pediatric) Additional A&P Information Hypoxia secondary to combination of COVID-19 pneumonia and congestive heart failure: Improving. Oxygen supplementation keeping saturation over 88%. Dexamethasone 6 mg daily. Has finished his course of remdesivir. Vitamin C, zinc. DuoNebs every 4 hour, budesonide twice daily as patient is on high flow Pulmonary toilet with incentive spirometry flutter valve. We will monitor inflammatory markers including ferritin, ESR, CRP, D-dimer, fibrinogen. D-dimer elevated. Unfortunately cannot do CTA as patient is allergic to iodine. For now continue with full dose anticoagulation with Eliquis 5 mg twice daily given high oxygen supplementation requirement, elevated D-dimer. Will monitor for anemia or blood loss. Most likely patient will be discharged on anticoagulation for 14 days. Sputum culture awaited. Urine Legionella, bacterial antigen, procalcitonin negative blood culture preliminary negative. Low suspicion of bacterial infection for now. For now hold off on antibiotics. Given hypoxia will try to keep patient as negative as possible. Echocardiogram shows EF 35 to 40% with moderate global LV hypokinesia with grade 1 diastolic dysfunction with RVSP of 18 mmHg. Patient overall 6 L negative since admission. Increase Lasix to 60 mg twice daily. Fluid restriction up to 1500 cc. Strict input output charting, daily weights. Replete potassium. Coag negative staph blood culture positive. Most likely contaminant. Repeat blood cultures have since remained negative. Patient has remained hemodynamically stable afebrile off antibiotics. CAD: Ischemic cardiomyopathy: Diuretics as above. No active chest pain. Continue with aspirin, statin, Plavix, beta-john. Hypertension: Increase dose of metoprolol 25 mg twice daily. Will monitor his heart rate if needed will go up accordingly. Goal blood pressure less than 140/90 mmHg. Type 2 diabetes mellitus: Start patient on Lantus 35 every morning. Insulin sliding scale at moderate dose protocol. Full code. Carb consistent cardiac diet. Eliquis for DVT prophylaxis. Famotidine for PUD prophylaxis. Attestations Medical Necessity Statement*: Requires further hospitalization for persistent hypoxia due to COVID-19 pneumonia and congestive heart failure still requiring high flow nasal cannula. Time Spent in Patient Care: Greater than 35 minutes (>than 50% of time spent in counselling and/or direct pt care on unit). Coding Level of Care Code Acute Registered Nurse Cardiac for [facility] Diagnoses Sepsis A41.9 Acute respiratory failure with hypoxia J96.01 COVID-19 U07.1 Ischemic cardiomyopathy I25.5 Atherosclerotic cardiovascular disease I25.10 Cerebral ventriculomegaly G93.89 Thrombocytopenia D69.6 Urinary retention R33.9 Leukopenia D72.819 Elevated lipase R74.8 Sleep apnea G47.33 Sleep apnea type: obstructive
[2021-06-14 17:06] LABS: Glucose Point of Care 214 mg/dL (70-110)
[2021-06-14] MEDS: FUROsemide 40 mg Tablet 60 MG PO (18:10)
[2021-06-14 21:25] LABS: Glucose Point of Care 305 mg/dL (70-110)
[2021-06-14 21:25] LABS: Glucose Point of Care 343 mg/dL (70-110)
--- NOTE | 2021-06-14 22:17 | PC.RESP ---
RT Shift Note Frequent safety and respiratory rounds continue. Orders completed as indicated. Patient monitored pre and post treatments throughout shift. Patient [Did. tolerate treatments appropriately. Condition [.DidNotChange]. Patient and/or veterans contact representative educated on respiratory treatment and medications. Patient and/or veterans contact representative [ResponseToTeaching]. Will continue to monitor patient progress.
[2021-06-15] VITALS (14 sets, daily range): BP systolic 109–128; BP diastolic 59–89; PULSE 70–104; RESP 18–30; TEMP 36.1–36.8; O2SAT 87–93
[2021-06-15] MEDS: ipratropium-albuterol 3 mL Neb INHALATION ×6 (00:10→23:11)
[2021-06-15] MEDS: acetaminophen 325 mg Tablet 650 MG PO (03:07)
[2021-06-15 06:35] LABS: Basophils % 0.2 %; Eosinophils # 0.1 10^3/uL (0.0-0.8); Eosinophils % 0.8 %; Hematocrit 45.8 % (42.0-52.0); Hemoglobin 16.1 g/dL (11.7-16.6); Lymphocytes # 1.1 10^3/uL (0.8-4.8); Lymphocytes % 8.1 %; Mean Corpuscular HGB Conc 35.2 g/dL (30.0-36.0); Mean Corpuscular Volume 88.1 fL (80-94); Monocytes % 7.5 %; Neutrophils # 11.23 10^3/uL (1.8-7.7); Neutrophils % 82.1 %; Nucleated Red Blood Cells % 0 %; Platelet Count 216 10^3/cmm (130-400); Red Cell Distribution Width 11.9 % (12.1-15.1); White Blood Count 13.7 10^3/uL (4.0-10.0)
[2021-06-15 06:39] LABS: Glucose Point of Care 105 mg/dL (70-110)
[2021-06-15 06:57] LABS: Alanine Aminotransferase 16 U/L (0-41); Albumin Level 2.9 g/dL (3.5-5.2); Alkaline Phosphatase 136 IU/L (40-130); Anion Gap 15.5 (5-19); Aspartate Amino Transferase 20 U/L (0-40); Blood Urea Nitrogen 15 mg/dL (8-23); Calcium 8.2 mg/dL (8.5-10.5); Carbon Dioxide 27 mmol/L (22-29); Chloride 94 mmol/L (98-107); Globulin 2.9 g/dL (1.3-4.6); Glomerular Filtration Rate 215.9 mL/min (90-130); Glucose 106 mg/dL (65-115); Osmolality Calculated 277 mOsm/kg (285-295); Potassium 3.5 mmol/L (3.5-5.1); Sodium 133 mmol/L (136-145); Total Bilirubin 1.2 mg/dL (0.15-1.2); Total Protein 5.8 g/dL (6.6-8.7)
[2021-06-15 07:21] LABS: NT Pro B Type Natriuretic Pept 530 pg/mL (0-125); Procalcitonin 0.19 ng/mL (0-0.5)
[2021-06-15 07:33] LABS: C Reactive Protein 80.7 mg/L (0.0-4.9)
[2021-06-15] MEDS: dexamethasone 10 mg/mL INJ 6 MG IVP (07:51)
[2021-06-15] MEDS: famotidine 20 mg/2 mL INJ IVP ×2 (07:51→21:05)
[2021-06-15 07:52] LABS: Erythrocyte Sedimentation Rate 31 mm/hr (0-10)
[2021-06-15] MEDS: budesonide 0.5 mg/2 mL Neb INHALATION ×2 (07:53→19:56)
[2021-06-15] MEDS: aspirin 81 mg EC Tablet PO (08:14)
[2021-06-15] MEDS: guaiFENesin 600 mg Tablet 1200 MG PO ×2 (08:14→17:45)
[2021-06-15] MEDS: apixaban 5 mg Tablet PO ×2 (08:14→21:05)
[2021-06-15] MEDS: zinc gluconate 50 mg Tablet PO (08:14)
[2021-06-15] MEDS: clopidogrel 75 mg Tablet PO (08:15)
[2021-06-15] MEDS: metoprolol tartrate 25 mg Tablet PO (08:15)
[2021-06-15] MEDS: ascorbic acid 500 mg Tablet PO (08:15)
[2021-06-15] MEDS: benzonatate 100 mg Capsule PO ×3 (08:15→21:05)
[2021-06-15] MEDS: FUROsemide 40 mg Tablet 60 MG PO ×2 (08:15→17:45)
[2021-06-15] MEDS: atorvastatin 40 mg Tablet PO (08:15)
[2021-06-15] MEDS: nystatin 100,000 unit/mL UDC 5 mL 100000 UNIT PO ×4 (10:03→21:04)
[2021-06-15] MEDS: amoxicillin-clav 500-125 mg Tablet 1 TAB PO ×3 (10:03→21:05)
[2021-06-15] MEDS: levoFLOXacin 500 mg Tablet PO (10:03)
[2021-06-15] MEDS: metoprolol tartrate 25 mg Tablet 50 MG PO ×2 (10:03→17:44)
[2021-06-15 11:15] LABS: Glucose Point of Care 379 mg/dL (70-110)
--- NOTE | 2021-06-15 15:34 | P.PN_ITS ---
Subjective Subjective: Interval history: No events overnight. Patient denies any nausea vomiting, headache. Today morning switched him from high flow nasal cannula to oxygen pendent. He saturating 90 to 91% on 5 L oxygen dependent at rest. He agrees to do incentive spirometry and flutter valve. Obese and sit up in chair. Asking when can he go home. We did discuss if his oxygen requirements are less than 5/5 with oxygen reservoir therapy within next 24 hours can plan to discharge him home. Vitals/I&O/Wt Last Vital Signs Temp 97 F L 06/15/21 12:00 Pulse 85 06/15/21 12:11 Resp 20 H 06/15/21 12:11 BP 109/68 06/15/21 12:00 Pulse Ox 92 06/15/21 12:11 06/15/21 06/15/21 06/15/21 06:59 14:59 22:59 Intake Total 100 / 820 360 / 360 Output Total 300 / 2200 Balance -200 / -1380 360 / 360 Weight last 48 hrs Weight 78.789 kg Weight 78.199 kg Physical Exam Narrative: EXAM NARRATIVE: General: No acute distress, AO x3, HEENT: PERRLA, pupils bilaterally equal and reactive Chest: Normal vesicular breath sounds, no added sounds, equal good air entry bilaterally CVS: S1-S2 regular, soft ejection systolic murmur present at the aortic region, no tachycardia, no gallops, no rubs Abdomen: Soft, nontender, no organomegaly, bowel sounds present Neuro: No focal deficits, no facial deformity, AO x3, power 5/5 in all limbs Urinary Catheter Management^: Driscoll: Cath Placed During This Visit: yes Reason for Continuing Indwelling Catheter: Acute Urinary Retention or Obstruction Urinary Catheter Date of Insertion: 06/06/21 Urinary Catheter Time of Insertion: 18:15 Data : 06/15/21 05:47 06/15/21 05:47 A&P Assessment and plan (1) Sepsis: Initially with sepsis but suspected secondary to COVID-19. Antibiotic discontinued. Status: Acute (2) Acute respiratory failure with hypoxia: Status: Acute (3) COVID-19: As above. Status: Acute (4) Ischemic cardiomyopathy: Status: Acute (5) Atherosclerotic cardiovascular disease: Status: Acute (6) Cerebral ventriculomegaly: Possibly out of proportion ventriculomegaly to brain atrophy. Discussed with him and his daughter. He has been having some issues with memory recently, he reports difficulties with balance. His daughter also reports he has been having some difficulties with urinary continence. Discussed in case normal pressure hydrocephalus, could be reversible changes, or at least arrest progression. Recommended follow-up with neurology for closer assessment, possibly LP trial, consideration for referral for treatment depending on response. They verbalized understanding agreement, will be seeking additional evaluation. Status: Acute (7) Thrombocytopenia: Resolved. Suspect secondary to severe COVID-19. Monitor blood counts. Status: Acute (8) Urinary retention: Driscoll placed. Appears urinary outflow tract obstruction on CT. Status: Acute (9) Leukopenia: Resolved. Secondary to severe COVID-19, sepsis. Status: Acute (10) Elevated lipase: Unclear etiology. He reported he had an episode of vomiting on the day of the admission. Daughter and do not recall having vomiting. CT abdomen pelvis without suggestion of pancreatitis. Reassessed level decreasing to 162. Status: Acute (11) Sleep apnea: Denies using CPAP at home. Status: Acute Qualifiers: Sleep apnea type: obstructive Qualified Code(s): G47.33 - Obstructive sleep apnea (adult) (pediatric) Additional A&P Information Hypoxia secondary to combination of COVID-19 pneumonia and congestive heart failure: Improving. Oxygen supplementation keeping saturation over 88%. Dexamethasone 6 mg daily. Has finished his course of remdesivir. Vitamin C, zinc. DuoNebs every 4 hour, budesonide twice daily as patient is on high flow Pulmonary toilet with incentive spirometry flutter valve. We will monitor inflammatory markers including ferritin, ESR, CRP, D-dimer, fibrinogen. D-dimer elevated. Unfortunately cannot do CTA as patient is allergic to iodine. For now continue with full dose anticoagulation with Eliquis 5 mg twice daily given high oxygen supplementation requirement, elevated D-dimer. Will monitor for anemia or blood loss. Most likely patient will be discharged on anticoagulation for 14 days. Sputum culture awaited. Urine Legionella, bacterial antigen, procalcitonin negative blood culture preliminary negative. Low suspicion of bacterial infection for now. Today multivitamin mildly elevated to 13,000, ESR mildly high to 31 from 17 yesterday with CRP also trending up. We will start patient on Augmentin and levofloxacin. Will escalate antibiotics if patient spikes any fever. Given hypoxia will try to keep patient as negative as possible. Echocardiogram shows EF 35 to 40% with moderate global LV hypokinesia with grade 1 diastolic dysfunction with RVSP of 18 mmHg. Patient overall 6 L negative since admission. Continue with Lasix 60 mg twice daily. Net 7.8 L negative since admission Fluid restriction up to 1500 cc. Strict input output charting, daily weights. Replete potassium. Coag negative staph blood culture positive. Most likely contaminant. Repeat blood cultures have since remained negative. Patient has remained hemodynamically stable afebrile off antibiotics. CAD: Ischemic cardiomyopathy: Diuretics as above. No active chest pain. Continue with aspirin, statin, Plavix, beta-john. Hypertension: Increase dose of metoprolol 25 mg twice daily. Will monitor his heart rate if needed will go up accordingly. Goal blood pressure less than 140/90 mmHg. Type 2 diabetes mellitus: Start patient on Lantus 35 every morning. Insulin sliding scale at moderate dose protocol. Full code. Carb consistent cardiac diet. Eliquis for DVT prophylaxis. Famotidine for PUD prophylaxis. Discharge planning: The patient remains hemodynamically stable on oxygen requirement of less then or equal to 5 L within next 24 hours can plan to discharge home. Attestations Medical Necessity Statement*: Requires further hospitalization for persistent hypoxia secondary to COVID-19 pneumonia and congestive heart failure. Time Spent in Patient Care: Greater than 35 minutes (>than 50% of time spent in counselling and/or direct pt care on unit) . Coding Level of Care Code Acute Marine Electronics Technician for [facility] Diagnoses Sepsis A41.9 Acute respiratory failure with hypoxia J96.01 COVID-19 U07.1 Ischemic cardiomyopathy I25.5 Atherosclerotic cardiovascular disease I25.10 Cerebral ventriculomegaly G93.89 Thrombocytopenia D69.6 Urinary retention R33.9 Leukopenia D72.819 Elevated lipase R74.8 Sleep apnea G47.33 Sleep apnea type: obstructive
[2021-06-15 17:07] LABS: Glucose Point of Care 380 mg/dL (70-110)
[2021-06-15 21:31] LABS: Glucose Point of Care 279 mg/dL (70-110)
[2021-06-16] VITALS (12 sets, daily range): BP systolic 107–138; BP diastolic 66–74; PULSE 57–98; RESP 20–24; TEMP 36.2–36.7; O2SAT 89–93
[2021-06-16] MEDS: ipratropium-albuterol 3 mL Neb INHALATION ×3 (03:43→11:27)
--- NOTE | 2021-06-16 06:00 | XRR_ITS ---
PROCEDURE INFORMATION: Exam: XR Chest Exam date and time: 06/16/2021 6:00 AM Age: 65 years old Clinical indication: Shortness of breath; Additional info: Covid TECHNIQUE: Imaging protocol: XR of the chest. Views: 1 view. Total images: 1 COMPARISON: CR XR chest 1V portable [id number] 06/14/2021 6:52 AM FINDINGS: Lungs: Bilateral pulmonary opacities are again noted and appear unchanged. Pleural spaces: Unremarkable. No pleural effusion. No pneumothorax. Heart/Mediastinum: Mild cardiomegaly stable. Bones/joints: Osseous structures are unchanged from the prior exam. Other findings: Stable postsurgical changes. XR/XR chest 1V portable [id number] IMPRESSION: 1. Mild cardiomegaly stable. 2. Bilateral pulmonary opacities are again noted and appear unchanged.
[2021-06-16 06:12] LABS: Glucose Point of Care 211 mg/dL (70-110)
[2021-06-16] MEDS: levoFLOXacin 500 mg Tablet PO (06:15)
[2021-06-16 07:11] LABS: C Reactive Protein 71.1 mg/L (0.0-4.9); NT Pro B Type Natriuretic Pept 456 pg/mL (0-125)
[2021-06-16] MEDS: budesonide 0.5 mg/2 mL Neb INHALATION (07:45)
--- NOTE | 2021-06-16 08:27 | PC.SOCIAL ---
IM follow up discussed with patient by phone due to COVID + and he verbalized understanding and has no questions. He would like to dc today.
[2021-06-16] MEDS: zinc gluconate 50 mg Tablet PO (09:30)
[2021-06-16] MEDS: amoxicillin-clav 500-125 mg Tablet 1 TAB PO ×2 (09:30→14:40)
[2021-06-16] MEDS: benzonatate 100 mg Capsule PO ×2 (09:30→14:40)
[2021-06-16] MEDS: guaiFENesin 600 mg Tablet 1200 MG PO (09:30)
[2021-06-16] MEDS: ascorbic acid 500 mg Tablet PO (09:30)
[2021-06-16] MEDS: FUROsemide 40 mg Tablet 60 MG PO (09:30)
[2021-06-16] MEDS: atorvastatin 40 mg Tablet PO (09:30)
[2021-06-16] MEDS: clopidogrel 75 mg Tablet PO (09:31)
[2021-06-16] MEDS: apixaban 5 mg Tablet PO (09:32)
[2021-06-16] MEDS: nystatin 100,000 unit/mL UDC 5 mL 100000 UNIT PO ×2 (09:32→13:52)
[2021-06-16] MEDS: metoprolol tartrate 25 mg Tablet 50 MG PO (09:32)
[2021-06-16] MEDS: aspirin 81 mg EC Tablet PO (09:32)
[2021-06-16 11:23] LABS: Basophils # 0.1 10^3/uL (0.0-0.1); Basophils % 0.3 %; Eosinophils # 0.1 10^3/uL (0.0-0.8); Eosinophils % 0.4 %; Hematocrit 46.8 % (42.0-52.0); Hemoglobin 16.4 g/dL (11.7-16.6); Lymphocytes # 0.8 10^3/uL (0.8-4.8); Lymphocytes % 4.9 %; Mean Corpuscular Hemoglobin 30.7 pg (28.0-34.0); Mean Corpuscular Volume 87.6 fl (80-94); Monocytes # 0.9 10^3/uL (0.2-0.9); Monocytes % 5.6 %; Neutrophils # 14.34 10^3/uL (1.8-7.7); Neutrophils % 87.7 %; Nucleated Red Blood Cells % 0 %; Platelet Count 244 10^3/cmm (130-400); Red Blood Count 5.34 10^6/uL (4.1-5.3); Red Cell Distribution Width 11.9 % (12.1-15.1); White Blood Count 16.4 10^3/uL (4.0-10.0)
[2021-06-16 11:32] LABS: Glucose Point of Care 293 mg/dL (70-110)
--- NOTE | 2021-06-16 11:44 | P.DS_ITS ---
Discharge Providers Date of Admission: 06/07/21 05:38 Date of Discharge: June 16, 2021 Attending Provider at Admission: Harry Negrete Attending Provider at Discharge: Dat Mosley MD Primary Care Provider: Tonia Snell NP Diagnoses at Discharge Discharge Diagnosis (1) Sepsis: Status: Acute (2) Acute respiratory failure with hypoxia: Status: Acute (3) COVID-19: Status: Acute (4) Ischemic cardiomyopathy: Status: Acute (5) Atherosclerotic cardiovascular disease: Status: Acute (6) Cerebral ventriculomegaly: Status: Acute (7) Thrombocytopenia: Status: Acute (8) Urinary retention: Status: Acute (9) Leukopenia: Status: Acute (10) Elevated lipase: Status: Acute (11) Sleep apnea: Status: Acute Qualifiers: Sleep apnea type: obstructive Qualified Code(s): G47.33 - Obstructive sleep apnea (adult) (pediatric) Reason for Visit Reason for Visit: FALL, PAIN Hospital Course Hospital Course 65-year-old gentleman with history of CAD, CABG, ischemic cardiomyopathy, DM 2, HTN, ROSALIO came into ER for ablation due to 2 weeks of malaise, 2 weeks ago also with lightheadedness and syncopal episode. In ER noted with sepsis, fever 100.6, leukopenia, WBC 3.3. Incidentally also thrombocytopenia 98,000. Initially lactic acid was reported as 4, he initially empirically was started on antibiotics and due to concern for septic shock received fluid resuscitation. Initially noted hypoxemic on room air, 60.8, but maintaining saturation without supplemental oxygen. On exertion saturations decreasing to 80s. On chest x-ray noted bilateral patchy pulmonary opacities consistent with pneumonia. Due to fall at home underwent additional assessment with CT of the head with finding of ventriculomegaly out of proportion to the amount of atrophy, NPH could be additionally considered. Extensive scattered chronic small vessel ischemic changes and bilateral lacunar infarcts. Pelvis, left forearm, hand, wrist x- rays negative for fractures. Lipase noted elevated at 424. CT abdomen pelvis showed dense confluent multilobar opacifications at lung bases. Concerning for COVID-19 pneumonia. Markedly distended urinary bladder. Age-indeterminate, not acute right ninth rib fracture. Rapid COVID-19 antigen sent out, found to be positive. In ER his condition was noted deteriorating with worsening oxygenation, tachycardia, hypertension, worsening work of breathing. He was started on BiPAP support, received a dose of 80 mg of Lasix, started on nitroglycerin drip. Patient went to the hospital for further management of severe hypoxia secondary to COVID-19 pneumonia and congestive heart failure. He was started on treatment with dexamethasone, remdesivir, inhalation treatment along with incentive spirometry and flutter valve for pulmonary toilet. He was started on anticoagulation with Eliquis for elevated D-dimer though CTA could not be done because of his allergy to iodine. Patient received aggressive diuresis on a daily basis secondary to his history of ischemic cardiomyopathy. Repeat echocardiogram was done resulted as below. By the end of hospitalization patient is around 8.5 L negative. His kidney functions have remained stable. Patient's hospital stay has been prolonged due to him requiring up to 6 to 7 L of high flow cannula oxygen supplementation for last 5 to 6 days. Patient has been monitored both at rest and ambulation for multiple days and his oxygen supplementation has remained stable. Patient was transitioned over to oxygen reservoir therapy and has been requiring 4 to 5 L at rest going up to 6 L on ambulation. Patient was seen by physical therapy and has been working well with them. He has been given home exercise program. Because of prolonged hospitalization patient was tested to be discharge. Patient discharge plan was discussed in detail with his daughter on the phone and it was conveyed that patient has remained on the same oxygen supplementation requirement for over 4 days now without any sign of deterioration and with patient being eager to come back home it would be a good idea for him to be discharged home on home oxygen. Discharge medications were discussed in detail with family. It is also conveyed given that patient is still requiring slightly higher oxygen supplementation at present he is at high risk of readmission. Family verbalized understanding and he has been discharged in hemodynamically stable condition with the following recommendations. Follow-up with a primary care provider within next 3 to 4 days. Advised to take inhalation treatment with Advair and Spiriva daily for next 2 weeks. Advised to continue using Eliquis which is a blood thinner for next 2 weeks. Advised to continue working with incentive spirometry and flutter valve while at home. Advised to continue taking dexamethasone 6 mg for next 5 days days. Advised to follow-up with his primary care provider and his payroll manager within the next 4 to 7 days. Patient is also being discharged on oral antibiotics with Augmentin Levaquin for next 5 days. He is to repeat his BMP when he follows up with his primary care provider within next 1 week. He has been advised to make sure he continues to ambulate at home with walker, continues to do his pulmonary toilet exercises and home exercises which he has been doing at hospital. Can take his COVID-19 vaccination in 3 months. Advised to continue following social distancing and isolation protocol for next 10 days. Advised to come back to the ER if fever of more than 101 Fahrenheit, more difficulty breathing than usual or requiring higher oxygen supplementation. Physical Exam Narrative: EXAM NARRATIVE: General: No acute distress, AO x3, HEENT: PERRLA, pupils bilaterally equal and reactive Chest: Normal vesicular breath sounds, no added sounds, equal good air entry bilaterally CVS: S1-S2 regular, soft ejection systolic murmur present at the aortic region, no tachycardia, no gallops, no rubs Abdomen: Soft, nontender, no organomegaly, bowel sounds present Neuro: No focal deficits, no facial deformity, AO x3, power 5/5 in all limbs Urinary Catheter Management^: Driscoll: Cath Placed During This Visit: yes Reason for Continuing Indwelling Catheter: Acute Urinary Retention or Obstruction Urinary Catheter Date of Insertion: 06/06/21 Urinary Catheter Time of Insertion: 18:15 Discharge Data Data Completed and Pending: Completed Studies During Hospitalization Category Date Time Status CT abdomen pelvis w con* [id number] Urge nt Cat Scan 06/06/21 13:[address] chest wo con 7 1250 Routine Cat Scan 06/11/21 10:[address] head wo con* 7 0450 Stat Cat Scan 06/06/21 13:24 Completed XR chest 1V nora ble 27179 Q48H Exams 06/12/21 06:00 Completed XR chest 1V nora ble 34045 Q48H Exams 06/14/21 06:00 Completed XR chest 1V nora ble 80465 Q48H Exams 06/16/21 06:00 Completed XR chest 1V nora ble [id number] Stat Exams 06/06/21 14:39 Completed XR chest 1V nora ble 42816 Stat Exams 06/06/21 17:56 Completed XR forearm LT 2V 27634 Stat Exams 06/06/21 14:02 Completed XR hand LT min 3V * [id number] Stat Exams 06/06/21 14:02 Completed XR pelvis 1-2V* 7 2170 Stat Exams 06/06/21 13:22 Completed XR wrist LT 2V 73 100 Stat Exams 06/06/21 14:02 Completed CV. echo complete * [id number] Routine Ultrasound 06/12/21 05:00 Completed Pending at discharge Category Date Time Status C Reactive Protei n AM LABS Lab 06/17/21 04:00 Ordered Complete Blood Co unt w/Auto AM LABS Lab 06/17/21 04:00 Ordered Comprehensive Met abolic Panel AM LA BS Lab 06/17/21 04:00 Ordered Comprehensive Met abolic Panel Routi ne Lab 06/16/21 10:13 Received Erythrocyte Sedim entation Rate Q48H Lab 06/17/21 04:00 Ordered NT Pro B Type Yarelis riuretic Pept AM L ABS Lab 06/17/21 04:00 Ordered Sputum Culture an d Gram Stain Routi ne Lab 06/06/21 19:40 Uncollected Labs from last 24 hours 06/16/21 06/16/21 06/16/21 11:09 10:13 10:13 WBC 16.4 H RBC 5.34 H Hgb 16.4 Hct 46.8 MCV 87.6 MCH 30.7 MCHC 35.0 RDW 11.9 L Plt Count 244 MPV 11.0 H Neut % (Auto) 87.7 Lymph % (Auto) 4.9 [place] % (Auto) 5.6 Eos % (Auto) 0.4 Baso % (Auto) 0.3 Neut # (Auto) 14.34 H Lymph # (Auto) 0.8 [place] # (Auto) 0.9 Eos # (Auto) 0.1 Baso # (Auto) 0.1 Nucleated RBC % (a uto) 0 Nucleated RBCs # 0.0 Sodium Pending Potassium Pending Chloride Pending Carbon Dioxide Pending Anion Gap Pending BUN Pending Creatinine Pending GFR Calculation Pending Glucose Pending POC Glucose 293 H Calculated Osmolal ity Pending Calcium Pending Total Bilirubin Pending AST Pending ALT Pending Alkaline Phosphata se Pending C-Reactive Protein NT-Pro-B Natriuret Pep Total Protein Pending Albumin Pending Globulin Pending 06/16/21 06/16/21 06/15/21 06:05 04:26 21:19 WBC RBC Hgb Hct MCV MCH MCHC RDW Plt Count MPV Neut % (Auto) Lymph % (Auto) [place] % (Auto) Eos % (Auto) Baso % (Auto) Neut # (Auto) Lymph # (Auto) [place] # (Auto) Eos # (Auto) Baso # (Auto) Nucleated RBC % (a uto) Nucleated RBCs # Sodium Potassium Chloride Carbon Dioxide Anion Gap BUN Creatinine GFR Calculation Glucose POC Glucose 211 H 279 H Calculated Osmolal ity Calcium Total Bilirubin AST ALT Alkaline Phosphata se C-Reactive Protein 71.1 H NT-Pro-B Natriuret Pep 456 H Total Protein Albumin Globulin 06/15/21 16:50 WBC RBC Hgb Hct MCV MCH MCHC RDW Plt Count MPV Neut % (Auto) Lymph % (Auto) [place] % (Auto) Eos % (Auto) Baso % (Auto) Neut # (Auto) Lymph # (Auto) [place] # (Auto) Eos # (Auto) Baso # (Auto) Nucleated RBC % (a uto) Nucleated RBCs # Sodium Potassium Chloride Carbon Dioxide Anion Gap BUN Creatinine GFR Calculation Glucose POC Glucose 380 H Calculated Osmolal ity Calcium Total Bilirubin AST ALT Alkaline Phosphata se C-Reactive Protein NT-Pro-B Natriuret Pep Total Protein Albumin Globulin Addt'l Data from Hospital Stay: Laboratory Results WBC 16.4 10^3/uL (4.0 -10.0) H 06/16/21 10:13 RBC 5.34 10^6/uL (4.1 -5.3) H 06/16/21 10:13 Hgb 16.4 g/dL (11.7-1 6.6) 06/16/21 10:13 Hct 46.8 % (42.0-52.0 ) 06/16/21 10:13 MCV 87.6 fl (80-94) 06/16/21 10:13 MCH 30.7 pg (28.0-34. 0) 06/16/21 10:13 MCHC 35.0 g/dL (30.0-3 6.0) 06/16/21 10:13 RDW 11.9 % (12.1-15.1 ) L 06/16/21 10:13 Plt Count 244 10^3/cmm (130 -400) 06/16/21 10:13 MPV 11.0 fL (7.4-10.4 ) H 06/16/21 10:13 Neut % (Auto) 87.7 % 06/16/21 10:13 Lymph % (Auto) 4.9 % 06/16/21 10:13 [place] % (Auto) 5.6 % 06/16/21 10:13 Eos % (Auto) 0.4 % 06/16/21 10:13 Baso % (Auto) 0.3 % 06/16/21 10:13 Neut # (Auto) 14.34 10^3/uL (1. 8-7.7) H 06/16/21 10:13 Lymph # (Auto) 0.8 10^3/uL (0.8- 4.8) 06/16/21 10:13 [place] # (Auto) 0.9 10^3/uL (0.2- 0.9) 06/16/21 10:13 Eos # (Auto) 0.1 10^3/uL (0.0- 0.8) 06/16/21 10:13 Baso # (Auto) 0.1 10^3/uL (0.0- 0.1) 06/16/21 10:13 Nucleated RBC % (a uto) 0 % 06/16/21 10:13 Total Counted 100 (0-100) 06/06/21 13:40 Atypical Lymphs % 1.0 % (0-5) 06/06/21 13:40 Absolute Neutrophi ls 2.6 10^3/cmm (1.4 -6.5) 06/06/21 13:40 Segmented Neutroph ils 78 % 06/06/21 13:40 Abs Segm Neuts (Ma n) 2.6 10/cmm (1.6-7 .1) 06/06/21 13:40 Band Neutrophils 0.0 % 06/06/21 13:40 Abs Band Neuts (Ma n) 0.0 10^3/cmm (0.0 -1.2) 06/06/21 13:40 Absolute Lymphocyt es 0.6 10^3/cmm (1.2 -3.4) L 06/06/21 13:40 Lymphocytes (Manua l) 17 % 06/06/21 13:40 Monocytes (Manual) 4.0 % 06/06/21 13:40 Absolute Monocytes 0.1 10^3/cmm (0.1 -0.6) 06/06/21 13:40 Eosinophils (Manua l) 0 % 06/06/21 13:40 Absolute Eosinophi ls 0.0 10^3/cmm (0.0 -0.7) 06/06/21 13:40 Basophils (Manual) 0.0 % 06/06/21 13:40 Absolute Basophils 0.0 10^3/cmm (0.0 -0.2) 06/06/21 13:40 Nucleated RBCs # 0.0 /100WBC 06/16/21 10:13 Platelet Estimate Normal (Normal) 06/06/21 13:40 ESR 31 mm/hr (0-10) H 06/15/21 05:47 PT 13.10 SECONDS (12 .1-14.9) 06/06/21 13:40 INR 0.96 (0.8-1.2) 06/06/21 13:40 APTT 33.8 SECONDS (23. 9-36.7) 06/06/21 13:40 D-Dimer 1.34 ug/mIFEU (0- 0.59) H 06/14/21 05:55 Specimen Type Arterial 06/13/21 09:40 Sample Site Radial, right 06/13/21 09:40 ABG pH 7.52 (7.35-7.45) H 06/13/21 09:40 ABG pCO2 33.2 mmHg (35-45) L 06/13/21 09:40 ABG pO2 65.4 mmHg (80.0-1 00.0) L 06/13/21 09:40 ABG HCO3 27.0 mmol/L (22-2 6) H 06/13/21 09:40 ABG O2 Saturation 94.9 06/13/21 09:40 ABG Base Excess 4.5 mmol/L (-2.0- 2.0) H 06/13/21 09:40 Jarek Test Pos 06/13/21 09:40 A-a O2 Gradient 5.6 mmHg (5-10) 06/13/21 09:40 Hematocrit 50.8 % (42-52) 06/13/21 09:40 Hgb O2 Saturation 93.8 % (95-100) L 06/13/21 09:40 Carboxyhemoglobin 0.7 %THgb (0.4-20 .1) 06/13/21 09:40 Methemoglobin 0.6 % (0.4-1.5) 06/13/21 09:40 Total Hemoglobin 16.6 g/dL (14-18) 06/13/21 09:40 Sodium 135.0 mmol/L (131 -143) 06/13/21 09:40 Potassium 3.6 mmol/L (3.5-5 .0) 06/13/21 09:40 Glucose 244.0 mg/dL (70-1 15) H 06/13/21 09:40 Ionized Calcium 1.1 mmol/L (1.1-1 .4) 06/13/21 09:40 O2 Delivery Device Nc 06/13/21 09:40 O2 Liters/Min 8.0 % 06/13/21 09:40 FiO2 100.0 % 06/06/21 18:37 Home Service Consultant ID [email or web address] 06/13/21 09:40 Sodium 133 mmol/L (136-1 45) L 06/15/21 05:47 Potassium 3.5 mmol/L (3.5-5 .1) 06/15/21 05:47 Chloride 94 mmol/L (98-107 ) L 06/15/21 05:47 Carbon Dioxide 23 mmol/L (22-29) 06/16/21 10:13 Anion Gap 15.5 (5-19) 06/15/21 05:47 BUN 20 mg/dL (8-23) 06/16/21 10:13 Creatinine 0.4 mg/dL (0.7-1. 2) L 06/15/21 05:47 GFR Calculation 215.9 mL/min (90- 130) H 06/15/21 05:47 Glucose 106 mg/dL (65-115 ) 06/15/21 05:47 POC Glucose 293 mg/dL (70-110 ) H 06/16/21 11:09 Calculated Osmolal ity 277 mOsm/kg (285- 295) L 06/15/21 05:47 Lactate 1.7 mmol/L (0.5-2 .2) 06/06/21 13:40 Calcium 8.2 mg/dL (8.5-10 .5) L 06/15/21 05:47 Magnesium 2.1 mg/dL (1.7-2. 3) 06/10/21 05:31 Iron 82 ug/dL (59-158) 06/11/21 04:50 TIBC 172 mcg/dl 06/11/21 04:50 % Saturation 47.6 % (20-50) 06/11/21 04:50 Unsat Iron Binding 90 ug/dL (112-347 ) L 06/11/21 04:50 Ferritin 1706 ng/mL (30-40 0) H 06/13/21 06:22 Total Bilirubin 0.8 mg/dL (0.15-1 .2) 06/16/21 10:13 AST 20 U/L (0-40) 06/16/21 10:13 ALT 20 U/L (0-41) 06/16/21 10:13 Alkaline Phosphata se 136 IU/L (40-130) H 06/15/21 05:47 Troponin T Baselin e 20 ng/L (0-15) H 06/08/21 14:10 Troponin T 120 Min [place] 17.07 ng/L (0-15) H 06/08/21 17:05 Delta Troponin T -2.93 ABS# (0-10) L 06/08/21 17:05 Troponin T Hi Sens 6Hr 16.64 ng/L (0-15) H 06/08/21 20:25 Troponin T Hi Sens 6Hr Delta -3.36 ng/L (0-12) L 06/08/21 20:25 C-Reactive Protein 71.1 mg/L (0.0-4. 9) H 06/16/21 04:26 NT-Pro-B Natriuret Pep 456 pg/mL (0-125) H 06/16/21 04:26 Total Protein 5.8 g/dL (6.6-8.7 ) L 06/15/21 05:47 Albumin 2.9 g/dL (3.5-5.2 ) L 06/15/21 05:47 Globulin 3.2 g/dL (1.3-4.6 ) 06/16/21 10:13 Triglycerides 57 mg/dL (0-150) 06/12/21 05:55 Cholesterol 84 mg/dL (0-200) 06/12/21 05:55 LDL Cholesterol, C alc 44 mg/dL (50-129) L 06/12/21 05:55 Total VLDL Cholest liban 11 mg/dL (0-30) 06/12/21 05:55 HDL Cholesterol 29 mg/dL (60-100) L 06/12/21 05:55 Cholesterol/HDL Ra davy 2.90 mg/dL (1.0-5 .00) 06/12/21 05:55 Lipase 162 U/L (13-60) H 06/07/21 07:25 Procalcitonin 0.19 ng/mL (0-0.5 ) 06/15/21 05:47 TSH 1.05 uIU/mL (0.27 -4.20) 06/11/21 04:50 Urine Color Straw (Yellow) 06/06/21 17:20 Urine Appearance Clear (CLEAR) 06/06/21 17:20 Urine pH 5 (5-7) 06/06/21 17:20 Ur Specific Gravit y 1.010 (1.005-1.0 30) 06/06/21 17:20 Urine Protein 1+ (Negative) H 06/06/21 17:20 Urine Glucose (UA) 4+ (Normal) H 06/06/21 17:20 Urine Ketones 1+ (Negative) H 06/06/21 17:20 Urine Blood Neg (Negative) 06/06/21 17:20 Urine Nitrate Negative (Negati ve) 06/06/21 17:20 Urine Bilirubin Neg (Negative) 06/06/21 17:20 Urine Urobilinogen 4 mg/dL (Negative ) H 06/06/21 17:20 Ur Leukocyte Brittney ase Negative (Negati ve) 06/06/21 17:20 Nasal/Oral COVID-1 9 PCR Detected H 06/06/21 14:10 SARS-CoV-2 Ag (Rap id) Positive (Negati ve) H 06/06/21 14:10 Blood Type A Positive 06/06/21 13:40 Rho(D) Type Positive / 4+ 06/06/21 13:40 Antibody Screen Negative 06/06/21 13:40 Impressions Pelvis X-Ray 06/06/21 13:22 Impression: Negative for fracture. Abdomen/Pelvis CT 06/06/21 13:24 IMPRESSION: 1. Dense confluent multilobar opacifications seen at the lung bases. Consider pneumonitis/Covid 19, pulmonary hemorrhage and pneumonia. Cannot completely exclude malignancy. Anticipate follow-up imaging after treatment. 2. No abdominal pelvic hemorrhage or visceral organ injury. 3. Markedly distended urinary bladder. May consider bladder outlet obstruction. 4. Age-indeterminate but not acute RIGHT ninth rib fracture. Head CT 06/06/21 13:24 IMPRESSION: 1. No acute intracranial hemorrhage identified. 2. Ventriculomegaly out of proportion to the amount of atrophy. Consider normal pressure hydrocephalus. 3. Extensive scattered chronic small vessel ischemic changes in bilateral lacunar infarcts. Forearm X-Ray 06/06/21 14:02 Impression: Negative for fracture. Hand X-Ray 06/06/21 14:02 Impression: Negative left hand. Wrist X-Ray 06/06/21 14:02 Impression: Negative left wrist. Chest CT 06/11/21 10:02 IMPRESSION: 1. Diffuse groundglass airspace infiltrates in the right greater than left lungs compatible with COVID 19 pneumonia. This is worse diffusely throughout the right lung. 2. Tiny bilateral pleural effusions. 3. Cardiomegaly with vascular and dense coronary calcification. Prior sternotomy and CABG. 4. Small esophageal hiatal hernia. Chest X-Ray 06/16/21 06:00 IMPRESSION: 1. Mild cardiomegaly stable. 2. Bilateral pulmonary opacities are again noted and appear unchanged. Microbiology 06/07/21 14:00 Blood Blood Culture - Final NO GROWTH AFTER 5 DAYS 06/07/21 13:50 Blood Blood Culture - Final NO GROWTH AFTER 5 DAYS 06/06/21 13:40 Blood Blood Culture - Final Coagulase negativ staphylococc 06/06/21 17:01 Blood Blood Culture - Final NO GROWTH AFTER 5 DAYS 06/07/21 06:46 Nose MRSA Culture - Final 06/06/21 17:20 Urine Catheterized Legionella Urinary Antigen - Final 06/06/21 17:20 Urine,Clean Catch Bacterial Antigens - Final Echocardiogram: CONCLUSIONS 1. This is a technically difficult study. 2. Normal left ventricular cavity size. Moderately decreased left ventricular systolic function. Left ventricular ejection fraction is estimated at 35-40%. Moderate global hypokinesis. Abnormal septal motion consistent with conduction abnormality. Grade I diastolic dysfunction (abnormal relaxation filling pattern), normal to mildly elevated filling pressures. 3. Mildly increased left atrial size. 4. When compared to previous echocardiogram dated 01/15/2019, there may not have been any significant change. Vitals: Last Vital Signs Temp 97.5 F L 06/16/21 08:00 Pulse 91 06/16/21 11:33 Resp 20 H 06/16/21 11:28 BP 138/74 06/16/21 08:00 Pulse Ox 91 06/16/21 11:28 Discharge Plan Discharge Patient Disposition: Home Condition: Stable Prescriptions: New amoxicillin-pot clavulanate 500-125 mg Tablet 1 tab PO TID 5 Days Qty: 15 RF: 0 Eliquis 5 mg Tablet 5 mg PO BID@0900,2100 14 Days Qty: 30 RF: 0 Vitamin C 500 mg Tablet 500 mg PO DAILY 30 Days Qty: 30 RF: 0 furosemide 40 mg Tablet 40 mg PO BID 30 Days Qty: 60 RF: 0 nystatin 100,000 unit/mL Suspension 100,000 unit PO QID 7 Days Qty: 28 RF: 0 zinc gluconate 50 mg Tablet 50 mg PO DAILY 30 Days Qty: 30 RF: 0 levofloxacin 500 mg Tablet 500 mg PO DAILY@0600 5 Days Qty: 5 RF: 0 Lanolin (HPA) 100 % Cream 1 applic topical DAILY 10 Days RF: 0 dexamethasone 6 mg tablet 6 mg PO DAILY Qty: 5 RF: 0 Advair Diskus 500-50 mcg/dose blister with device 1 inh inhalation BID 30 Days Qty: 60 RF: 0 Spiriva with HandiHaler 18 mcg capsule, w/inhalation device 1 cap inhalation DAILY 30 Days Qty: 30 RF: 0 benzonatate 100 mg Capsule 100 mg PO TID PRN (Reason: cough) Qty: 10 RF: 0 Continued nitroglycerin 0.4 mg tablet, sublingual 0.4 mg SUBLINGUAL Q5M PRN (Reason: chest pain) 30 Days Qty: 30 RF: 3 ipratropium-albuterol 0.5 mg-3 mg(2.5 mg base)/3 mL solution for nebulization 3 ml INHALATION QID PRN (Reason: Shortness Of Breath) RF: 0 aspirin [Adult Low Dose Aspirin] 81 mg tablet,delayed release (DR/EC) 81 mg PO QDAY Qty: 90 RF: 3 atorvastatin [Lipitor] 40 mg tablet 40 mg PO DAILY Qty: 90 RF: 3 Symbicort 160-4.5 mcg/actuation HFA aerosol inhaler 2 puff INHALATION BID Qty: 10.2 RF: 11 clopidogrel 75 mg tablet 75 mg PO QDAY Qty: 90 RF: 3 Changed metformin 500 mg tablet 1,000 mg PO BID Qty: 180 RF: 3 Levemir FlexTouch U-100 Insuln 100 unit/mL (3 mL) insulin pen 50 unit SUBCUT QAM Qty: 12 RF: 3 metoprolol tartrate 25 mg tablet 50 mg PO BID Qty: 180 RF: 0 No Action (DME) blood-glucose meter [Blood Glucose Monitoring] Kit See Rx Instructions .Route Qty: 1 RF: 0 Discharge Orders: Discharge Order (Routine); Ordered 06/16/21 Ordered By: aDt Mosley Referrals: Nadya Velarde MD [Physician] - 2 weeks Tonia Snell NP [Primary Care Provider] - 1-3 days Discharge Diet: Regular, Cardiac and Diabetic Discharge Activity: Resume usual activity and Increase activity as tolerated Patient Instructions: Opioid Safety Activity Restrictions/Additional Instructions: Follow-up with a primary care provider within next 3 to 4 days. Advised to take inhalation treatment with Advair and Spiriva daily for next 2 weeks. Advised to continue using Eliquis which is a blood thinner for next 2 weeks. Advised to continue working with incentive spirometry and flutter valve while at home. Advised to continue taking dexamethasone 6 mg for next 5 days days. Advised to follow-up with his primary care provider and his payroll manager within the next 4 to 7 days. Patient is also being discharged on oral antibiotics with Augmentin Levaquin for next 5 days. He is to repeat his BMP when he follows up with his primary care provider within next 1 week. Patient is advised to maintain his blood pressure diary at home by checking his blood pressure twice a day and follow-up with his primary care provider for further adjustment of antihypertensives. He is advised to make sure that he does not drink more than 1500 cc of fluid a day. He is advised to maintain his body weight chart and if he sees his body weight is increasing more than 3 pounds in a week he should take an extra dose of Lasix. He has been advised to make sure he continues to ambulate at home with walker, continues to do his pulmonary toilet exercises and home exercises which he has been doing at hospital. Can take his COVID-19 vaccination in 3 months. Advised to continue following social distancing and isolation protocol for next 10 days. Advised to come back to the ER if fever of more than 101 Fahrenheit, more difficulty breathing than usual or requiring higher oxygen supplementation. Discharge Attestations Time Spent in Discharge Care*: greater than 30 min Specific Discharge Activities: educating patient, educating and/or supporting family/caregiver, discussing with pcp/other providers, discussing with child welfare caseworker/social workers/dc planners, documenting/other paperwork and evaluating patient/reviewing data Status at Discharge: Cognitive status at discharge: cognitively intact , Behavioral status at discharge: cooperative , Functional status at discharge: independent ambulation Overall status at discharge: patient is progressing back to baseline Quality Metrics Clinical Quality Measures During this hospital stay, did patient experience: None Coding Level of Care Code Acute Chg FW DC note Diagnoses Sepsis A41.9 Acute respiratory failure with hypoxia J96.01 COVID-19 U07.1 Ischemic cardiomyopathy I25.5 Atherosclerotic cardiovascular disease I25.10 Cerebral ventriculomegaly G93.89 Thrombocytopenia D69.6 Urinary retention R33.9 Leukopenia D72.819 Elevated lipase R74.8 Sleep apnea G47.33 Sleep apnea type: obstructive
[2021-06-16] MEDS: lanolin oint 7 gm 1 APPLIC TOPICAL (11:47)
[2021-06-16 11:48] LABS: Alanine Aminotransferase 20 U/L (0-41); Alkaline Phosphatase 150 IU/L (40-130); Anion Gap 19.4 (5-19); Aspartate Amino Transferase 20 U/L (0-40); Blood Urea Nitrogen 20 mg/dL (8-23); Calcium 8.4 mg/dL (8.5-10.5); Carbon Dioxide 23 mmol/L (22-29); Chloride 89 mmol/L (98-107); Globulin 3.2 g/dL (1.3-4.6); Glomerular Filtration Rate 166.9 mL/min (90-130); Glucose 327 mg/dL (65-115); Osmolality Calculated 281 mOsm/kg (285-295); Potassium 3.4 mmol/L (3.5-5.1); Sodium 128 mmol/L (136-145); Total Bilirubin 0.8 mg/dL (0.15-1.2); Total Protein 6.2 g/dL (6.6-8.7)
[2021-06-16] MEDS: dexamethasone 10 mg/mL INJ 6 MG IVP (12:42)
[2021-06-16] MEDS: famotidine 20 mg/2 mL INJ IVP (12:42)
--- NOTE | 2021-06-18 13:43 | PC.SOCIAL ---
clarified dose of nystatin 5ml QID
--- NOTE | 2021-06-21 09:38 | PC.SOCIAL ---
discharge follow up call made to patient. Spoke with pts daughter. Pt is taking new medications as prescribed. Pts spouse made follow up appointments with PCP and Dr. Velarde. Patient continues to use O2 at 6L NC.
== END 2021-06-16 15:45 | disposition home or self-care (01) | DRG 871 ==
LOC: ER 20:35 → ER IP 21:55 → MS 2A 06-07 07:05
PROVIDERS: Admitting Provider Internal Medicine; Emergency Provider Emergency Medicine; PCP Nurse Practitioner Family; Visit Provider Student in an Organized Health Care Education/Training Program
DX: A41.89 Other specified sepsis (principal); U07.1 COVID-19; J96.01 Acute respiratory failure with hypoxia; I50.21 Acute systolic (congestive) heart failure; I25.10 Atherosclerotic heart disease of native coronary artery without angina pectoris; E78.5 Hyperlipidemia, unspecified; I25.5 Ischemic cardiomyopathy; G47.33 Obstructive sleep apnea (adult) (pediatric); E11.9 Type 2 diabetes mellitus without complications; D69.6 Thrombocytopenia, unspecified; W19.XXXA Unspecified fall, initial encounter; Y93.9 Activity, unspecified; Y92.009 Unspecified place in unspecified non-institutional (private) residence as the place of occurrence of the external cause; R33.9 Retention of urine, unspecified; D72.819 Decreased white blood cell count, unspecified; H17.9 Unspecified corneal scar and opacity; G93.89 Other specified disorders of brain; I11.0 Hypertensive heart disease with heart failure; Z80.9 Family history of malignant neoplasm, unspecified; Z82.49 Family history of ischemic heart disease and other diseases of the circulatory system; Z82.3 Family history of stroke; Z83.3 Family history of diabetes mellitus; Z84.89 Family history of other specified conditions; Z95.1 Presence of aortocoronary bypass graft; Z95.5 Presence of coronary angioplasty implant and graft; Z98.52 Vasectomy status; Z90.49 Acquired absence of other specified parts of digestive tract; Z79.4 Long term (current) use of insulin; Z79.82 Long term (current) use of aspirin; Z81.8 Family history of other mental and behavioral disorders; Z81.1 Family history of alcohol abuse and dependence; Z88.8 Allergy status to other drugs, medicaments and biological substances
CPT/HCPCS: 36415; 36416; 36600; 51702; 70450; 71045; 71250; 72170; 73090; 73100; 73130; 74177; 80051; 80053; 80061; 81003; 82330; 82728; 82803; 82805; 82962; 83540; 83550; 83605; 83690; 83735; 83880; 84145; 84443; 84484; 85007; 85025; 85027; 85378; 85610; 85651; 85730; 86140; 86403; 86850; 86900; 87040; 87205; 87426; 87449; 87635; 87641; 93005; 93306; 94640; 94660; 94664; 96365; 96366; 96367; 96372; 96375; 97110; 97116; 97161; 97530; 99291; J0692; J1100; J1200; J1650; J1720; J1815; J1940; J1956; J2060; J3370; J3475; J3480; J3490; J7030; J7050; J7626; Q9967

== ENCOUNTER 2021-08-08 11:48 | Emergency (ER) | payer MEDICARE, MEDICAID, SELFPAY ==
[2021-08-08 11:51] VITALS: BP 125/73; PULSE 98; RESP 18; TEMP 36.8; O2SAT 100; BMI 26.6
--- NOTE | 2021-08-08 11:57 | ED_ITS ---
HPI - General Adult General: Chief complaint: General Medical Stated complaint: HYPERGLYCEMIA, LETHARGIC Time Seen by Provider: 08/08/21 11:54 History of Present Illness: HPI narrative: This patient is a 66-year-old male that has a history of COPD and insulin-dependent diabetes presents to the emergency department for elevated blood glucose. Patient does have glucose reading with EMS of greater than 500. Patient states he has been out of his insulin for some time. And unable to keep check of his glucose. Patient recently was admitted and discharged from the hospital in June due to Covid. Patient does have chronic COPD and does wear oxygen at home but denies any acute shortness of breath other than his baseline today. Will do medical evaluation treat as needed Onset (ago): day(s) Associated symptoms: Deny chest pain, dyspnea, headache(s), nausea, rash, palpitations or vomiting Review of Systems General: Reports: 10 or more systems reviewed and unremarkable except in HPI and below Const: Denies: fever(s), chills, body aches or fatigue Eyes: Denies: change in vision or blurry vision ENMT: Denies: throat pain, hoarseness or mouth pain Card: Denies: chest pain, palpitations, irregular heart rhythm, edema, swelling of feet/ankles or lightheadedness Resp: Denies: dyspnea, productive cough, non-productive cough, wheezing or pain on inspiration GI: Denies: abdominal pain, nausea or vomiting : Denies: flank pain, dysuria, urinary frequency, urinary urgency or urinary hesitancy Musc: Denies: neck pain, back pain, extremity pain, extremity swelling, joint pain, joint swelling, joint redness, joint warmth or limited range of motion Skin/Breast: Denies: rash, pruritus, erythema or skin tenderness Neuro: Denies: headache(s), numbness in extremities or weakness in extremities Psych: Denies: anxiety or depression PFSH ED PFSH: Medical History Abnormal cardiovascular stress test Atherosclerotic cardiovascular disease Atypical chest pain Benign essential HTN Bradycardia Cerebral ventriculomegaly Dyslipidemia Elevated lipase Ischemic cardiomyopathy Sepsis Shortness of breath Sleep apnea Surgical History Hx of CABG Hx of heart artery stent Hx of tonsillectomy Hx of vasectomy Family History Mother Diabetes CAD (coronary artery disease) Hyperlipidemia Hypertension Father CAD (coronary artery disease) Dementia Hyperlipidemia Hypertension Sister CAD (coronary artery disease) Cancer Diabetes Hyperlipidemia Hypertension Stroke Brother CAD (coronary artery disease) Cancer Dementia Diabetes Hyperlipidemia Hypertension Family/Other Suicide Denies family history of Clotting disorder Psychiatric illness Chronic kidney disease (CKD) Anesthesia complication Bleeding disorder Lung disease Social History Alcohol intake: never Lives independently: Yes Marital status: Physical Exam Const: COMMON NORMALS: no acute distress, average body habitus, patient oriented x3, no limitations, healthy appearing, alert and well nourished HENMT: COMMON NORMALS: normocephalic, atraumatic, hearing grossly normal bilaterally, external ears normal, EAC's normal, TM's normal bilaterally, Normal external nose present, Normal nasal mucous membranes and turbinates present, moist oral mucous membranes, oropharynx normal, dentition normal and gingiva normal HEAD & SCALP: normocephalic and atraumatic NOSE: Normal external nose present and Normal nasal mucous membranes and turbinates present EXTERNAL EAR: Yes external ears normal EXTERNAL AUDITORY CANAL: EAC's normal TYMPANIC MEMBRANE: TM's normal bilaterally Neck/C-Spine: COMMON NORMALS: full ROM, no lymphadenopathy, supple, no men ingeal signs, no JVD, Thyroid normal and No carotid bruits THYROID: Thyroid normal Chest: COMMONS NORMALS: normal inspection of the chest, normal palpation of entire chest wall, normal inspection of the breasts and normal palpation of the breasts Breast/axilla inspection: Yes normal inspection of the breasts BREAST/AXILLA PALPATION: Yes normal palpation of the breasts Resp: COMMON NORMALS: normal respiratory effort, No retractions, No use of accessory muscles, clear to auscultation bilaterally and percussion normal AUSCULTATION: clear to auscultation bilaterally PERCUSSION: percussion normal Cardio: COMMON NORMALS: no JVD, regular rate, regular rhythm, S1 normal heart sound present, S2 normal heart sound present, No gallops present (Cardio), No clicks present (Cardio), No murmurs present (Cardio), No rub (Cardio) and Peripheral pulses 2+ throughout RATE: regular rate RHYTHM: regular rhythm HEART SOUNDS: S1 normal heart sound present and S2 normal heart sound present PERIPHERAL PULSES: Peripheral pulses 2+ throughout GI: COMMON NORMALS: Normal to inspection, nondistended, normoactive bowel sounds present, Soft to palpation, non-tender, No hepatosplenomegaly present, no masses and no bruits PALPATION: Yes Soft to palpation and Yes No hepatosplenomegaly present : COMMON NORMALS: Yes no CVA tenderness BLADDER/KIDNEY EXAM: Yes no CVA tenderness Back/Pelvis: COMMON NORMALS: no CVA tenderness, thoracic and lumbar spine normal to inspection, no thoracic nor lumbar tenderness, thoraco-lumbar ROM normal and straight leg raise negative bilaterally Extremity: COMMON NORMALS: normal to inspection, full ROM, capillary refill normal, no joint enlargement, no clubbing, cyanosis or edema, no calf tenderness and no pedal edema Neuro: COMMON NORMALS: patient oriented x3 SENSORIUM/ORIENTATION: Yes alert MENINGEAL SIGNS: Yes no meningeal signs Course Reevaluation(s): Reevaluation #1: Patient states he is feeling much improved after getting glucose under control. Family at the bedside. States patient ran out day 4 yesterday of his insulin and they are beginning of the pharmacy upon discharge. Glucose is trending downward. Patient was given additional 6 units of insulin. Will be discharged home. Family member should check glucose as instructed within an hour and monitor closely take insulin as prescribed by his primary care physician. Patient be discharged home patient and family state understanding Time: 13:55 Vital Signs: Vital signs: Vital Signs Temperature 98.2 F 08/08/21 11:51 Pulse Rate 102 H 08/08/21 13:33 Respiratory Rate 18 08/08/21 11:51 Blood Pressure 117/56 08/08/21 13:33 Pulse Oximetry 100 08/08/21 12:33 MDM - General Adult MDM Narrative: Medical decision making narrative: This patient is a 66-year-old male that has a history of COPD and insulin-dependent diabetes presents to the emergency department for elevated blood glucose. Patient does have glucose reading with EMS of greater than 500. Patient states he has been out of his insulin for some time. And unable to keep check of his glucose. Patient recently was admitted and discharged from the hospital in June due to Covid. Patient does have chronic COPD and does wear oxygen at home but denies any acute shortness of breath other than his baseline today. Will do medical evaluation treat as needed Patient states he is feeling much improved after getting glucose under control. Family at the bedside. States patient ran out day 4 yesterday of his insulin and they are beginning of the pharmacy upon discharge. Glucose is trending downward. Patient was given additional 6 units of insulin. Will be discharged home. Family member should check glucose as instructed within an hour and monitor closely take insulin as prescribed by his primary care physician. Patient be discharged home patient and family state understanding Lab Data: Labs: Lab Results 08/08/21 08/08/21 08/08/21 12:29 12:29 12:29 WBC 11.3 10^3/uL H 10 ^3/uL (4.0-10.0) RBC 4.47 10^6/uL 10^6 /uL (4.1-5.3) Hgb 13.4 g/dL g/dL (11.7-16.6) Hct 39.2 % L % (42.0-52.0) MCV 87.7 fl fl (80-94) MCH 30.0 pg pg (28.0-34.0) MCHC 34.2 g/dL g/dL (30.0-36.0) RDW 13.3 % % (12.1-15.1) Plt Count 278 10^3/cmm 10^3 /cmm (130-400) MPV 9.6 fL fL (7.4-10.4) Neut % (Auto) 57.1 % % Lymph % (Auto) 31.6 % % [place] % (Auto) 9.9 % % Eos % (Auto) 0.6 % % Baso % (Auto) 0.5 % % Neut # (Auto) 6.42 10^3/uL 10^3 /uL (1.8-7.7) Lymph # (Auto) 3.6 10^3/uL 10^3/ uL (0.8-4.8) [place] # (Auto) 1.1 10^3/uL H 10^ 3/uL (0.2-0.9) Eos # (Auto) 0.1 10^3/uL 10^3/ uL (0.0-0.8) Baso # (Auto) 0.1 10^3/uL 10^3/ uL (0.0-0.1) Nucleated RBC % (a uto) 0 % % Nucleated RBCs # 0.0 /100WBC /100W BC Sodium 130 mmol/L L mmol /L (136-145) Potassium 3.3 mmol/L L mmol /L (3.5-5.1) Chloride 88 mmol/L L mmol/ L (98-107) Carbon Dioxide 31 mmol/L H mmol/ L (22-29) Anion Gap 14.3 (5-19) BUN 8 mg/dL mg/dL (8-23) Creatinine 0.4 mg/dL L mg/dL (0.7-1.2) GFR Calculation 215.2 mL/min H mL /min (90-130) Glucose 444 mg/dL H mg/dL (65-115) POC Glucose Calculated Osmolal ity 288 mOsm/kg mOsm/ kg (285-295) Calcium 9.2 mg/dL mg/dL (8.5-10.5) Total Bilirubin 0.5 mg/dL mg/dL (0.15-1.2) AST 8 U/L U/L (0-40) ALT 9 U/L U/L (0-41) Alkaline Phosphata se 171 IU/L H IU/L (40-130) Total Protein 7.0 g/dL g/dL (6.6-8.7) Albumin 3.4 g/dL L g/dL (3.5-5.2) Globulin 3.6 g/dL g/dL (1.3-4.6) Urine Color Cancelled Urine Appearance Cancelled Urine pH Cancelled Ur Specific Gravit y Cancelled Urine Protein Cancelled Urine Glucose (UA) Cancelled Urine Ketones Cancelled Urine Blood Cancelled Urine Nitrate Cancelled Urine Bilirubin Cancelled Prot Sulfosalicyli c Acd Cancelled Urine Urobilinogen Cancelled Ur Leukocyte Brittney ase Cancelled Urine RBC Urine WBC Ur Squamous Epith Cells Amorphous Sediment Urine Bacteria Urine Mucus 08/08/21 08/08/21 12:29 13:11 WBC RBC Hgb Hct MCV MCH MCHC RDW Plt Count MPV Neut % (Auto) Lymph % (Auto) [place] % (Auto) Eos % (Auto) Baso % (Auto) Neut # (Auto) Lymph # (Auto) [place] # (Auto) Eos # (Auto) Baso # (Auto) Nucleated RBC % (a uto) Nucleated RBCs # Sodium Potassium Chloride Carbon Dioxide Anion Gap BUN Creatinine GFR Calculation Glucose POC Glucose 351 mg/dL H mg/dL (70-110) Calculated Osmolal ity Calcium Total Bilirubin AST ALT Alkaline Phosphata se Total Protein Albumin Globulin Urine Color Straw (Yellow) Urine Appearance Cloudy (CLEAR) Urine pH 5 (5-7) Ur Specific Gravit y 1.010 (1.005-1.030) Urine Protein Neg (Negative) Urine Glucose (UA) 4+ H (Normal) Urine Ketones 1+ H (Negative) Urine Blood 3+ H (Negative) Urine Nitrate Negative (Negative) Urine Bilirubin Neg (Negative) Prot Sulfosalicyli c Acd Urine Urobilinogen Norm mg/dL mg/dL (Negative) Ur Leukocyte Brittney ase 2+ H (Negative) Urine RBC 5-10 /hpf H /hpf (0-2) Urine WBC Too numerous to c nt /hpf H /hpf (0-5) Ur Squamous Epith Cells 5-10 /hpf H /hpf (0-5) Amorphous Sediment Not Reportable Urine Bacteria 2+ /hpf H /hpf (NONE) Urine Mucus Trace /hpf /hpf Discharge Plan Discharge Patient Disposition: Home Clinical Impression: Acute hyperglycemia Condition: Stable Prescriptions: No Action nitroglycerin 0.4 mg tablet, sublingual 0.4 mg SUBLINGUAL Q5M PRN (Reason: chest pain) 30 Days Qty: 30 RF: 3 ipratropium-albuterol 0.5 mg-3 mg(2.5 mg base)/3 mL solution for nebulization 3 ml INHALATION QID PRN (Reason: Shortness Of Breath) RF: 0 aspirin [Adult Low Dose Aspirin] 81 mg tablet,delayed release (DR/EC) 81 mg PO QDAY Qty: 90 RF: 3 atorvastatin [Lipitor] 40 mg tablet 40 mg PO DAILY Qty: 90 RF: 3 Symbicort 160-4.5 mcg/actuation HFA aerosol inhaler 2 puff INHALATION BID Qty: 10.2 RF: 11 clopidogrel 75 mg tablet 75 mg PO QDAY Qty: 90 RF: 3 (DME) blood-glucose meter [Blood Glucose Monitoring] Kit See Rx Instructions .Route Qty: 1 RF: 0 benzonatate 100 mg Capsule 100 mg PO TID PRN (Reason: cough) Qty: 10 RF: 0 dexamethasone 6 mg tablet 6 mg PO DAILY Qty: 5 RF: 0 metformin 500 mg tablet 1,000 mg PO BID Qty: 180 RF: 3 metoprolol tartrate 25 mg tablet 50 mg PO BID Qty: 180 RF: 0 Levemir FlexTouch U-100 Insuln 100 unit/mL (3 mL) insulin pen 50 unit SUBCUT QAM Qty: 12 RF: 3 Discharge Orders: Discharge ED (Routine); Ordered 08/08/21 Ordered By: Anthony Root Referrals: Tonia Snell NP [Primary Care Provider] - Discharge Diet: Diabetic Discharge Activity: Increase activity as tolerated Patient Instructions: Opioid Safety Activity Restrictions/Additional Instructions: Continue to monitor glucose as instructed. Go directly to pharmacy on discharge from the hospital procedure refill of your insulin as prescribed by your PCP. Monitor diet closely. Follow-up with PCP in 2 to 3 days. Return to the emergency department as needed. Coding Level of Care Code ED Roller [place] for Rebekah Fwd Exam Comprehensive
[2021-08-08 12:33] VITALS: BP 152/90; PULSE 87; O2SAT 100
[2021-08-08 12:38] LABS: Basophils # 0.1 10^3/uL (0.0-0.1); Basophils % 0.5 %; Eosinophils # 0.1 10^3/uL (0.0-0.8); Eosinophils % 0.6 %; Hematocrit 39.2 % (42.0-52.0); Hemoglobin 13.4 g/dL (11.7-16.6); Lymphocytes # 3.6 10^3/uL (0.8-4.8); Lymphocytes % 31.6 %; Mean Corpuscular HGB Conc 34.2 g/dL (30.0-36.0); Mean Corpuscular Volume 87.7 fl (80-94); Mean Platelet Volume 9.6 fL (7.4-10.4); Monocytes # 1.1 10^3/uL (0.2-0.9); Monocytes % 9.9 %; Neutrophils # 6.42 10^3/uL (1.8-7.7); Neutrophils % 57.1 %; Nucleated Red Blood Cells % 0 %; Platelet Count 278 10^3/cmm (130-400); Red Blood Count 4.47 10^6/uL (4.1-5.3); Red Cell Distribution Width 13.3 % (12.1-15.1); White Blood Count 11.3 10^3/uL (4.0-10.0)
[2021-08-08] MEDS: sodium chloride 0.9% 1,000 ML 999 ML IV (12:42)
[2021-08-08] MEDS: insulin regular-human 100 units/1 mL 10 UNIT IVP (12:42)
[2021-08-08 13:14] LABS: Alanine Aminotransferase 9 U/L (0-41); Albumin Level 3.4 g/dL (3.5-5.2); Alkaline Phosphatase 171 IU/L (40-130); Anion Gap 14.3 (5-19); Aspartate Amino Transferase 8 U/L (0-40); Blood Urea Nitrogen 8 mg/dL (8-23); Calcium 9.2 mg/dL (8.5-10.5); Carbon Dioxide 31 mmol/L (22-29); Chloride 88 mmol/L (98-107); Globulin 3.6 g/dL (1.3-4.6); Glomerular Filtration Rate 215.2 mL/min (90-130); Glucose 444 mg/dL (65-115); Osmolality Calculated 288 mOsm/kg (285-295); Potassium 3.3 mmol/L (3.5-5.1); Sodium 130 mmol/L (136-145); Total Bilirubin 0.5 mg/dL (0.15-1.2)
[2021-08-08 13:22] LABS: Glucose Point of Care 351 mg/dL (70-110)
[2021-08-08 13:33] VITALS: BP 117/56; PULSE 102
[2021-08-08 13:41] LABS: Urine Appearance Cloudy (CLEAR); Urine Color Straw (Yellow)
[2021-08-08 13:42] LABS: Bilirubin Urine Neg (Negative); Blood Urine 3+ (Negative); Glucose Urine UA 4+ (Normal); Ketones Urine 1+ (Negative); Leukocyte Esterase Urine 2+ (Negative); Nitrate Urine Negative (Negative); Protein Urine Neg (Negative); Urobilinogen Urine Norm (Negative); WBC Urine TOO NUMEROUS TO CNT /hpf (0-5); pH Urine 5 (5-7)
[2021-08-08 13:43] LABS: Add Urine Culture? Yes; Bacteria Urine 2+ /hpf; Mucus Urine TRACE /hpf
== END 2021-08-08 14:37 | disposition home or self-care (01) ==
PROVIDERS: Emergency Provider Emergency Medicine; PCP Nurse Practitioner Family
DX: E11.65 Type 2 diabetes mellitus with hyperglycemia (principal); J44.9 Chronic obstructive pulmonary disease, unspecified; Z79.02 Long term (current) use of antithrombotics/antiplatelets; Z79.82 Long term (current) use of aspirin; Z79.4 Long term (current) use of insulin; I10 Essential (primary) hypertension; E78.5 Hyperlipidemia, unspecified; Z95.1 Presence of aortocoronary bypass graft
CPT/HCPCS: 36416; 80053; 81001; 81003; 82962; 85025; 87086; 87106; 96361; 96374; 99283; J1815; J7030